=== PATIENT | female | born 1985 | race Caucasian/White ===

== ENCOUNTER 2023-08-20 16:58 | Inpatient (IN) | payer OTHER, SELFPAY ==
--- NOTE | ~2023-08-20 | XR_ITS ---
EXAMINATION: XR CHEST CLINICAL INFORMATION: Chest tightness. COMPARISON: None available. TECHNIQUE: 2 views of the chest were obtained. FINDINGS: Increased lung volumes. No focal consolidation, pleural effusion or pneumothorax. Normal appearance of the cardiomediastinal silhouette. No acute osseous findings. Visualized upper abdomen is within normal limits. XR/XR chest 2V IMPRESSION: Nonspecific increased lung volumes, otherwise normal examination.
--- NOTE | ~2023-08-20 | CT_ITS ---
EXAMINATION: CT ABDOMEN AND PELVIS WITH CONTRAST CLINICAL INFORMATION: Abdominal pain. Rule out pancreatitis. COMPARISON: None available. TECHNIQUE: Multidetector volumetric images were obtained from the superior aspect of the liver through the pubic symphysis following administration 85 mL of Omnipaque 350 intravenous contrast. Sagittal and coronal reformatted images were obtained on the technologist's workstation. Oral contrast: Yes This CT examination was performed using dose optimization techniques as appropriate, variously including the following: *Automated exposure control *Adjustment of mA and/or kV according to patient size (this includes techniques or standardized protocols for targeted exams where dose is matched to indication/reason for exam; i.e. extremities or head) *Use of iterative reconstruction technique DLP: 485 mGy-cm FINDINGS: LUNG BASES: The visualized lung bases are unremarkable. LIVER, GALLBLADDER, AND BILIARY TREE: The liver is enlarged and low in attenuation suggestive of fatty infiltration. No focal liver lesion or evidence of cirrhosis. Normal gallbladder. No intra or extrahepatic biliary duct dilatation. PANCREAS: There is edematous change of the head of the pancreas. There is fat stranding and fluid seen surrounding the pancreatic head, duodenum, right perinephric fat and small bowel mesentery. This probably represents acute interstitial pancreatitis. Differential would include duodenitis. The body and tail of the pancreas are normal. The main pancreatic duct does not appear dilated. SPLEEN: Unremarkable. ADRENAL GLANDS: Unremarkable. KIDNEYS AND URETERS: The kidneys are normal in size, shape, and attenuation. No hydronephrosis, hydroureter, or calculi seen. Right perinephric fat stranding. BLADDER: Unremarkable. GASTROINTESTINAL TRACT: There is mild wall thickening of the proximal duodenum, stranding of the surrounding fat all amount of fluid. This may be reactive secondary to pancreatitis. Again differential would include duodenitis. The small and large bowel are otherwise unremarkable. The appendix is unremarkable. ABDOMINAL WALL: No significant hernia is appreciated. LYMPH NODES: Normal. VASCULAR: Unremarkable. PELVIC VISCERA: Unremarkable. OSSEOUS STRUCTURES: Unremarkable. CT/CT abdomen pelvis w IV con IMPRESSION: Probable interstitial pancreatitis of the pancreatic head, adjacent fat stranding and small amount of fluid. There is a wall thickening of the adjacent proximal duodenum that may be reactive. Differential would include duodenitis. Enlarged fatty liver. Fleischner guidelines were followed.
[2023-08-20 17:37] VITALS: BP 150/102; PULSE 98; RESP 20; TEMP 36.6; O2SAT 96; BMI 23.2
--- NOTE | 2023-08-20 17:43 | ED_ITS ---
HPI - General Adult General Chief complaint: ETOH/Substance Use Stated complaint: Detox Time Seen by Provider: 08/20/23 18:24 History of Present Illness HPI narrative: The patient is a 38-year-old female with a history of alcoholism. She has had episodes of alcoholic pancreatitis in the past and cared for at other hospitals. She says that she did inpatient detox in March of this year and was sober for a few months afterwards but relapsed and has been drinking for awhile. The patient says that over the last couple of days she has felt unwell and has been very anxious about her health. She called [facility] in [place] today to try to go to inpatient detox but no beds were available. She was advised to go to an emergency room. She says that she has been having headaches and chest pain. She has had nausea and some diarrhea. She would 1 episode of vomiting this morning. She does not really feel like she has pancreatitis today. She felt very anxious at home and ultimately came to the emergency room here. She denies fever, sweats, chills. She denies suicidality and homicidality. She says that she normally drinks 10 nips of vodka a day. Today she has had 8 nips. Related Data Allergies Allergy/AdvReac Type Severity Reaction Status Date / Time ibuprofen AdvReac Unknown Verified 08/20/23 17:47 ondansetron [From Zofran] AdvReac Unknown Verified 08/20/23 17:47 Review of Systems 2 Review of Systems: Yes all other systems are reviewed and are negative [facility] Social History Social History Advance Directives: No Advance Directives Information Provided: No Do you have a plan to hurt others: No Plan Physical Exam ED Vital Signs: Vital Signs - 24 hr 08/20/23 17:37 08/20/23 20:00 08/20/23 22:00 Temperature 98 F 97.6 F 98.5 F Pulse Rate 98 85 89 Respiratory Rate 20 12 11 L Blood Pressure 150/102 H 164/89 H 153/103 H Pulse Oximetry 96 99 97 Oxygen Delivery Method Room Air Room Air Room Air BMI result Body Mass Index 23.2 Const Other: The patient is awake, alert, and seems somewhat anxious. HENMT Other: Face is symmetrical, mucous membranes moist. Eyes Other: Pupils are round equal, conjunctivae clear Neck Other: No neck swelling. Moving her neck easily. Resp Effort & Inspection: normal respiratory effort Auscultation: clear to auscultation bilaterally Cardio Rate: regular rate Rhythm: regular rhythm Heart sounds: S1 normal heart sound present and S2 normal heart sound present GI Other: Abdomen is soft and nontender Skin Other: Skin is dry and unremarkable Neuro Other: The patient is awake and alert. She seemed sad but not maudlin. She was oriented and appropriate. She was not slurring her words. Face is symmetrical. Cranial nerves seem intact. She moves her extremities symmetrically. No focal neurological deficit. Extrem Other: No calf swelling or tenderness. Psych Other: The patient seemed mildly tearful during our conversation. She made good eye contact. She seems to have insight into her situation. No suicidality or homicidality. Course Course Course Narrative: This is a Rapid Medical Examination (RME) performed by Nadege Lopez PA-C in triage. Full HPI, ROS, assessment and treatment plan per primary provider in the Main ED. 38 yo female hx of etoh abuse here requesting detox. currently reports chest tightness, SANCHEZ, anxiety, nausea, vomiting, diarrhea. admits to pins and needles sensation in her legs. reports drinking 10 nips of vodka daily. Has consumed 8 nips of vodka today, the last one being 1 hour ago. Admits to being in withdrawal before. Denies withdrawal seizures. denies TH/VH/AH. denies SI/HI. Denies illicit substance use. anxious appearing female. tearful. no asterixis. no tremors. CIWA 10. Plan: labs, UA, u preg, UDS, ethanol, ekg Medications Administered Discontinued Medications Generic Name Dose Route Start Last Admin Trade Name Jessica PRN Reason Stop Dose Admin Diphenhydramine HCl 25 mg 08/20/23 20:57 08/20/23 21:45 Diphenhydramine Hcl 50 Mg/Ml Vial IVPUSH 08/20/23 20:58 25 mg ONCE ONE Administration Sodium Chloride 1,000 mls @ 999 mls/hr 08/20/23 19:45 08/20/23 19:59 Ns IV 08/20/23 20:45 999 mls/hr .Q1H1M VICKY Administration Calcium Gluconate 2 gm in 100 mls @ 400 mls/hr 08/20/23 21:25 08/20/23 21:49 Calcium Gluconate IV 08/20/23 21:39 400 mls/hr ONCE ONE Administration Metoclopramide HCl 10 mg 08/20/23 20:57 08/20/23 21:45 Metoclopramide Hcl 10 Mg/2 Ml Vial IVPUSH 08/20/23 20:58 10 mg ONCE ONE Administration Ondansetron HCl 4 mg 08/20/23 19:45 08/20/23 19:52 Ondansetron Hcl 4 Mg/2 Ml Vial IVPUSH 08/20/23 19:46 4 mg ONCE ONE Administration Phenobarbital Sodium 245 mg 08/20/23 20:00 08/20/23 20:01 Phenobarbital Sodium 130 Mg/Ml Im Once IM 08/20/23 20:01 245 mg ONCE ONE Administration Protocol Medical Decision Making Medical Decision Making MDM Narrative: The patient is a 38-year-old female with a history of significant long-term alcoholism. 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 She presents after trying to get into outpatient detox earlier today. She drank before coming to the hospital but was reporting feeling some sense of withdrawal. She was given 10 milligrams/kilogram of IM phenobarbital. She was also complaining of a headache for which she was given metoclopramide and diphenhydramine. The patient seemed to improve initially and it was my impression that she should be kept in the emergency room to be seen by the recovery team in the morning for assistance with obtaining inpatient detox. While in the emergency room the patient also began to complain of pain somewhat reminiscent of her pancreatitis. Her initial lipase was minimally elevated at 82. We are repeating this. I do not have a high suspicion that the patient has a recurrence of her pancreatitis given the history she describes. I will be signing the patient out change of shift with the plan for the patient to be observed overnight with evaluation by the recovery team in the morning. Lab Data 08/20/23 18:21 08/20/23 18:20 Labs: Lab Results 08/20/23 08/20/23 Range/Units 18:20 18:21 WBC 10.6 (4.8-10.8) X10*3/uL RBC 5.09 (4.20-5.50) X10*6/uL Hgb 15.8 (12.0-16.0) g/dl Hct 43.9 (37.0-47.0) % MCV 86.2 (80.0-98.0) fL MCH 31.0 (27.0-33.0) pg MCHC 36.0 H (31.0-35.0) g/dl RDW 12.7 (11.0-16.0) % Plt Count 161 (160-400) X10*3/uL MPV 8.4 L (9.4-12.3) fL Immature Gran % (Auto) 0.7 H (0.0-0.4) % Neut % (Auto) 58.0 (45-73) % Lymph % (Auto) 31.5 (20-40) % [place] % (Auto) 5.1 (2-11) % Eos % (Auto) 3.9 (0-4) % Baso % (Auto) 0.8 (0-2) % Lymph # (Auto) 3.3 (1.2-4.9) X10*3/uL [place] # (Auto) 0.5 (0.1-1.2) X10*3/uL Eos # (Auto) 0.4 (0.0-0.4) X10*3/uL Baso # (Auto) 0.1 (0.0-0.2) X10*3/uL Abs Immat Gran (auto) 0.07 H (0.00-0.03) X10*3/uL Absolute Neuts (auto) 6.2 (2.0-8.3) x10*3/uL Absolute Nucleated RBC 0.000 (0.0-0.012) X10*3/uL Nucleated RBC % (auto) 0.0 (0.0-0.2) /100WBC PT 12.1 (11.1-13.3) SEC INR 1.0 (0.9-1.1) Sodium 144 (135-145) mmol/L Potassium 3.7 (3.3-5.1) mmol/L Chloride 109 H (96-108) mmol/L Carbon Dioxide 23 (22-29) mmol/L Anion Gap 16 (12-20) BUN 7 L (9-16) mg/dL Creatinine 0.76 (0.5-1.4) mg/dL Estim Creat Clear Calc 96.6 Estimated GFR > 60 Random Glucose 120 H (60-115) mg/dL Calcium 9.4 (8.4-10.2) mg/dL Magnesium 2.1 (1.6-2.6) mg/dL Total Bilirubin 0.4 (0.0-1.0) mg/dL AST 73 H (5-31) U/L ALT 36 H (0-31) U/L Alkaline Phosphatase 71 (39-117) U/L Troponin I High Sens < 2.7 (<3.5-17.0) ng/L Total Protein 7.9 (6.5-8.0) g/dL Albumin 4.7 (3.5-5.0) g/dL Lipase 82 H (8-78) U/L Folate 4.0 (> or = 4.0) ng/mL Urine Color Yellow Urine Appearance Clear Urine pH 6.0 (5.0-9.0) Ur Specific [place] <= 1.005 (1.005-1.025) Urine Protein Negative (Neg-Trace) mg/dL Urine Glucose (UA) Negative (Negative) mg/dL Urine Ketones Negative (Negative) mg/dL Urine Blood Negative (Negative) Urine Nitrite Negative (Negative) Ur Leukocyte Esterase Negative (Negative) Urine Test NEGATIVE (NEGATIVE) Urine Opiates Screen Not Detected (Not Detect) Ur Buprenorphine Scrn Not Detected (Not Detect) ng/mL Ur Oxycodone Screen Not Detected (Not Detect) ng/mL Urine Methadone Screen Not Detected (Not Detect) ng/mL Urine Fentanyl Screen Not Detected (Not Detect) Ur Barbiturates Screen Not Detected (Not Detect) Ur Phencyclidine Scrn Not Detected (Not Detect) Ur Amphetamines Screen Not Detected (Not Detect) U Benzodiazepines Scrn Not Detected (Not Detect) Urine Cocaine Screen Not Detected (Not Detect) U Marijuana (THC) Screen Not Detected (Not Detect) Ethyl Alcohol 336 H* mg/dL Discharge Plan Discharge Clinical Impression: Alcoholic intoxication, Alcoholism Patient Disposition: Still a Patient Print Language: [place]
--- NOTE | 2023-08-20 17:48 | ECG_ITS ---
Test Reason : CHEST TIGHTNESS Blood Pressure : / mmHG Vent. Rate : 088 BPM Atrial Rate : 088 BPM P-R Int : 152 ms QRS Dur : 094 ms QT Int : 414 ms P-R-T Axes : 071 047 062 degrees QTc Int : 500 ms Normal sinus rhythm Prolonged QT Abnormal ECG No previous ECGs available Referred By: Saskia Lopez Electronically Signed By:NISHA IRVIN MD
[2023-08-20 18:24] LABS: MANUAL DIFF FLAG NO
[2023-08-20 18:29] LABS: Basophils Absolute Auto 0.1 X10*3/uL (0.0-0.2); Basophils Percent Auto 0.8 % (0-2); Eosinophils Absolute Auto 0.4 X10*3/uL (0.0-0.4); Eosinophils Percent Auto 3.9 % (0-4); Hematocrit 43.9 % (37.0-47.0); Hemoglobin 15.8 g/dl (12.0-16.0); Imm Gran Abs Auto 0.07 X10*3/uL (0.00-0.03); Imm Gran Pct Auto 0.7 % (0.0-0.4); Lymphocytes Absolute Auto 3.3 X10*3/uL (1.2-4.9); Lymphocytes Percent Auto 31.5 % (20-40); Mean Corpuscular Volume 86.2 fL (80.0-98.0); Mean Platelet Volume 8.4 fL (9.4-12.3); Monocytes Absolute Auto 0.5 X10*3/uL (0.1-1.2); Monocytes Percent Auto 5.1 % (2-11); Neutrophils Absolute Auto 6.2 x10*3/uL (2.0-8.3); Platelet Count 161 X10*3/uL (160-400); Red Blood Count 5.09 X10*6/uL (4.20-5.50); Red Cell Distribution Width 12.7 % (11.0-16.0); White Blood Count 10.6 X10*3/uL (4.8-10.8)
[2023-08-20 18:30] LABS: Appearance Urine Clear; Color Urine Yellow; Glucose Urine UA Negative (Negative); Leukocyte Esterase Urine Negative (Negative); Nitrite Urine Negative (Negative); Specific Gravity - Urine <= 1.005 (1.005-1.025); UPreg QC Valid YES; Urine Blood Negative (Negative); Urine Ketones Negative (Negative); Urine Pregnancy NEGATIVE (NEGATIVE); Urine Protein Negative (Neg-Trace)
[2023-08-20 18:34] LABS: Prothrombin Time 12.1 SEC (11.1-13.3)
[2023-08-20 18:38] LABS: Amphetamine Screen Urine Not Detected (Not Detect); Barbiturates, Urine Not Detected (Not Detect); Benzodiazepines Screen Urine Not Detected (Not Detect); Buprenorphine Scr Not Detected (Not Detect); Cannabinoid Screen Urine Not Detected (Not Detect); Cocaine Screen Urine Not Detected (Not Detect); Fentanyl, urine Not Detected (Not Detect); Methadone Screen, Urine Not Detected (Not Detect); Opiate Screen Urine Not Detected (Not Detect); Oxycodone Screen Urine Not Detected (Not Detect); Phencyclidine Screen Urine Not Detected (Not Detect)
[2023-08-20 19:12] LABS: Alanine Aminotransferase 36 U/L (0-31); Albumin Level 4.7 g/dL (3.5-5.0); Alkaline Phosphatase 71 U/L (39-117); Anion Gap 16 (12-20); Aspartate Amino Transferase 73 U/L (5-31); Bilirubin Total 0.4 mg/dL (0.0-1.0); Blood Urea Nitrogen 7 mg/dL (9-16); Calcium 9.4 mg/dL (8.4-10.2); Carbon Dioxide 23 mmol/L (22-29); Chloride 109 mmol/L (96-108); Creatinine Clr Calc Pharmacy 96.6; Estimated Glomerular Filt Rate > 60; Ethanol 336 mg/dL; Glucose Random 120 mg/dL (60-115); Lipase 82 U/L (8-78); Magnesium 2.1 mg/dL (1.6-2.6); Potassium 3.7 mmol/L (3.3-5.1); Sodium 144 mmol/L (135-145); Total Protein 7.9 g/dL (6.5-8.0)
[2023-08-20 19:13] LABS: Troponin-I High Sensitivity < 2.7 ng/L (<3.5-17.0)
[2023-08-20] MEDS: ondansetron HCL 4 MG/2 ML VIAL IVPUSH (19:52)
[2023-08-20] MEDS: 0.9 % Sodium Chloride 1,000 ML 999 ML IV ×2 (19:59→23:16)
[2023-08-20 20:00] VITALS: BP 164/89; PULSE 85; RESP 12; TEMP 36.4; O2SAT 99
[2023-08-20] MEDS: PHENobarbitaL sodium 130 MG/ML IM ONCE 245 MG IM (20:01)
[2023-08-20] MEDS: Metoclopramide HCl 10 MG/2 ML VIAL IVPUSH (21:45)
[2023-08-20] MEDS: diphenhydrAMINE HCL 50 MG/ML VIAL 25 MG IVPUSH (21:45)
[2023-08-20] MEDS: Calcium Gluconate/NaCl,Iso-Osm 2 GM/100 ML PLAST..BAG IV (21:49)
[2023-08-20 22:00] VITALS: BP 153/103; PULSE 89; RESP 11; TEMP 36.9; O2SAT 97
[2023-08-20] MEDS: Morphine Sulfate 4 MG/ML CARTRIDGE IVPUSH (23:15)
[2023-08-20] MEDS: PHENobarbitaL sodium 130 MG/ML VIAL IM Q3Hx2 185 MG IM (23:15)
[2023-08-20] MEDS: Acetaminophen 325 MG TABLET 975 MG PO (23:16)
[2023-08-20 23:48] LABS: Lipase 82 U/L (8-78)
[2023-08-21] VITALS (13 sets, daily range): BP systolic 121–172; BP diastolic 75–105; PULSE 73–88; RESP 8–20; TEMP 36.6–37.1; O2SAT 95–99
--- NOTE | 2023-08-21 00:29 | MHC.EDTECH ---
This tech took over care of patient at 2300,hourly rounds and vitals completed,patient is resting comfortably call [place] toro in reach
[2023-08-21] MEDS: PHENobarbitaL sodium 130 MG/ML VIAL IM Q3Hx2 185 MG IM (02:03)
--- NOTE | 2023-08-21 02:06 | MHC.EDTECH ---
Patient ambulated to the bathroom with a steady gait,hourly rounds and vitals completed
--- NOTE | 2023-08-21 04:04 | MHC.EDTECH ---
Hourly rounds and vitals completed,patient is resting comfortably,call [place] toro in reach
[2023-08-21] MEDS: Magnesium Hydrox/Alum Hydrox 30 ML ORAL.SUSP PO ×2 (06:25→09:56)
[2023-08-21] MEDS: LORazepam 1 MG TABLET PO (06:25)
[2023-08-21] MEDS: PHENobarbitaL 15 MG TABLET 45 MG PO ×2 (09:08→20:33)
[2023-08-21] MEDS: Lidocaine HCl Viscous 2 % 15 ML SOLUTION 10 ML PO (09:55)
[2023-08-21] MEDS: PHENobarb/Hyoscy/Atropine/Scop 10 ML ELIXIR PO (09:56)
--- NOTE | 2023-08-21 10:11 | PC.NURSE ---
Belongings searched by security. Pt changed into safety attire. Denies any SI or HI. Reports pain is 8/10 in epigastric/ LUQ region, medicated per MAR. Alert and oriented, breathing even and unlabored.
--- NOTE | 2023-08-21 10:57 | PC.NURSE ---
Pt found to have home meds in her bag. 3 regular meds and 1 controlled, inventory done by 2 RNs and meds brought to pharmacy by RN
[2023-08-21] MEDS: iohexoL 350 MG/ML 100 ML INFUS..BTL IV (14:57)
[2023-08-21] MEDS: Morphine Sulfate 4 MG/ML CARTRIDGE IVPUSH (15:03)
[2023-08-21] MEDS: diphenhydrAMINE HCL 50 MG/ML VIAL IVPUSH (15:05)
[2023-08-21] MEDS: Metoclopramide HCl 10 MG/2 ML VIAL IVPUSH (15:07)
[2023-08-21] MEDS: 0.9 % Sodium Chloride 1,000 ML 999 ML IV (15:08)
--- NOTE | 2023-08-21 17:23 | P.HPHOSP_ITS ---
History of Present Illness Date of Service: 08/21/23 Attending physician on admission: [facility] Chief Complaint: Abdominal pain, alcohol withdrawal This is a 38 year old female with history of alcohol dependence who presented to the emergency department seeking detox. The initial plan was for her to go to detox facility. During her stay in the emergency department she began experiencing symptoms of withdrawal and she was started on phenobarbital protocol. In addition she began having epigastric abdominal pain consistent with previous episodes of pancreatitis. Her lipase was obtained and was 82, a CT scan of her abdomen showed probable interstitial pancreatitis of the pancreatic head versus duodenitis. Patient has had nausea but no vomiting or diarrhea. She denies any fever, chills. The remainder of her workup was unremarkable. She does report drinking 10 nips daily with her last drink prior to her arrival yesterday evening. She has had previous episodes of alcohol induced pancreatitis and pain is similar to previous. It was described as burning and radiating around her side. She denies any urinary symptoms. She will be admitted for further management of alcohol withdrawal and acute alcoholic pancreatitis Review of Systems 2 Review of Systems: Yes all other systems are reviewed and are negative Constitutional: Constitutional: Denies fever(s) ENT: Denies dizziness Cardiovascular: Cardiovascular: Denies chest pain Gastrointestinal: Gastrointestinal: Reports abdominal pain, Denies diarrhea, Reports nausea and Denies vomiting Neurologic: Denies dizziness [facility] Medical History (Updated 08/21/23 @ 17:31 by ANN Clemente) Alcoholism Anxiety Functional capacity: independent ambulation Pertinent family history: Dad has history of hypertension Social History Alcohol intake: current Alcohol intake frequency: 3 or more drinks per day Smoked in Last 30 Days: Yes Use of substances other than those prescribed or required for medical reasons: Yes Substance Use Type: Marijuana Substance Use Frequency: Occasionally Advance Directives: No Advance Directives Information Provided: No Do you have a plan to hurt others: No Plan Patient : No Meds Allergies Allergy/AdvReac Type Severity Reaction Status Date / Time ibuprofen AdvReac Unknown Verified 08/20/23 17:47 ondansetron [From Zofran] AdvReac Unknown Verified 08/20/23 17:47 Active Medications: Current Medications Pharmacy Consult (Consult Rx Etoh Phenob Im/Po) 1 each MISCELLANE ONCE PRN; Protocol PRN Reason: Consult order Phenobarbital (Phenobarbital 15 Mg Tablet) 45 mg PO BID [facility]; Protocol Stop: 08/22/23 21:01 Last Admin: 08/21/23 09:08 Dose: 45 mg Phenobarbital (Phenobarbital 15 Mg Tablet) 15 mg PO BID [facility]; Protocol Stop: 08/24/23 21:01 Phenobarbital (Phenobarbital 15 Mg Tablet) 15 mg PO DAILY [facility]; Protocol Stop: 08/26/23 09:01 Home Medications ?Medication ?Instructions ?Recorded ?Confirmed ?Last Taken ?Type buspirone 15 mg tablet 15 mg PO BID 08/21/23 08/21/23 08/20/23 06:00 History clonidine HCl 0.1 mg tablet 0.1 mg PO BID 08/21/23 08/21/23 08/20/23 06:00 History cyanocobalamin (vitamin B-12) 1,000 mcg PO DAILY 08/21/23 08/21/23 08/20/23 06:00 History 1,000 mcg tablet hydroxyzine HCl 50 mg tablet 50 mg PO DAILY PRN Anxiety 08/21/23 08/21/23 08/20/23 06:00 History Physical Exam 2 Vital Signs and Narrative: Vital Signs: Last Vital Signs Temp 98.1 F 08/21/23 16:56 Pulse 80 08/21/23 16:56 Resp 13 08/21/23 16:56 BP 143/91 H 08/21/23 16:56 Pulse Ox 95 08/21/23 16:56 O2 Del Method Room Air 08/21/23 16:56 BMI result Body Mass Index 23.2 Const: General: cooperative and alert Nutritional Appearance: thin O rientation/consciousness: patient oriented x3 Resp: Effort & Inspection: normal respiratory effort, able to speak in complete sentences, no respiratory distress and no use of accessory muscles A uscultation: clear to auscultation bilaterally Cardio: Rate: regular rate GI: Other: Tenderness to palpation epigastric/right upper quadrant, nondistended. No guarding, no rebound Palpation (GI): Soft to palpation Neuro: General: patient oriented x3, moves all extremities and CN's II-XI intact bilaterally Extrem: General: Yes no pedal edema Results Labs 08/20/23 18:21 08/20/23 18:20 Labs: Laboratory Results - last 24 hr 08/20/23 08/20/23 08/20/23 18:20 18:21 23:30 MCV 86.2 MCH 31.0 MCHC 36.0 H RDW 12.7 Plt Count 161 MPV 8.4 L Immature Gran % (Auto) 0.7 H Neut % (Auto) 58.0 Lymph % (Auto) 31.5 [place] % (Auto) 5.1 Eos % (Auto) 3.9 Baso % (Auto) 0.8 Lymph # (Auto) 3.3 [place] # (Auto) 0.5 Eos # (Auto) 0.4 Baso # (Auto) 0.1 Abs Immat Gran (auto) 0.07 H Absolute Neuts (auto) 6.2 Absolute Nucleated RBC 0.000 Nucleated RBC % (auto) 0.0 PT 12.1 INR 1.0 Anion Gap 16 Estim Creat Clear Calc 96.6 Estimated GFR > 60 Random Glucose 120 H Calcium 9.4 Magnesium 2.1 Total Bilirubin 0.4 AST 73 H ALT 36 H Alkaline Phosphatase 71 Troponin I High Sens < 2.7 Total Protein 7.9 Albumin 4.7 Lipase 82 H 82 H Folate 4.0 Urine Color Yellow Urine Appearance Clear Urine pH 6.0 Ur Specific [place] <= 1.005 Urine Protein Negative Urine Glucose (UA) Negative Urine Ketones Negative Urine Blood Negative Urine Nitrite Negative Ur Leukocyte Esterase Negative Urine Test NEGATIVE Urine Opiates Screen Not Detected Ur Buprenorphine Scrn Not Detected Ur Oxycodone Screen Not Detected Urine Methadone Screen Not Detected Urine Fentanyl Screen Not Detected Ur Barbiturates Screen Not Detected Ur Phencyclidine Scrn Not Detected Ur Amphetamines Screen Not Detected U Benzodiazepines Scrn Not Detected Urine Cocaine Screen Not Detected U Marijuana (THC) Screen Not Detected Ethyl Alcohol 336 H* Imaging Radiologist's Impressions: Impressions Chest X-Ray 08/20/23 19:12 IMPRESSION: Nonspecific increased lung volumes, otherwise normal examination. Abdomen/Pelvis CT 08/21/23 15:13 IMPRESSION: Probable interstitial pancreatitis of the pancreatic head, adjacent fat stranding and small amount of fluid. There is a wall thickening of the adjacent proximal duodenum that may be reactive. Differential would include duodenitis. Enlarged fatty liver. Fleischner guidelines were followed. Assessment and Plan (1) Acute pancreatitis: Status: Acute Plan This is a 38-year-old female with history of anxiety and alcohol dependence with history of alcohol withdrawal and alcohol induced pancreatitis in the past who presented to the emergency department seeking detox and then began experiencing symptoms of alcohol withdrawal and pancreatitis Alcohol dependence with alcohol withdrawal Started on phenobarbital protocol Supplement with thiamine, folic acid Addiction medicine evaluation Will repeat electrolytes including magnesium Acute pancreatitis Due to alcohol use NPO IVF Pain medication, supportive care QTC prolonged at 500, judicious use of antiemetics Transaminitis Likely secondary to alcohol use Trend LFTs Anxiety Continue home medications including clonidine, BuSpar, Atarax DVT prophylaxis-Lovenox Code status-full code Patient will likely require 2 midnight stay in the hospital for management of acute alcohol withdrawal and acute pancreatitis for IV pain control, inability to take p.o. Quality Stroke Does the patient have a stroke diagnosis?: No VTE Prior VTE?: No VTE Risk Level:: Medical - moderate - high VTE Device Contraindication: N/A - Device Ordered VTE Drug Contraindication: Treatment Not Indicated
--- NOTE | 2023-08-21 17:28 | PHA.MEDREC ---
Pharmacy Consult ? Medication Reconciliation Pharmacy has completed the medication reconciliation. Confirmed meds with patient.
[2023-08-21] MEDS: hydrOXYzine HCL 50 MG TABLET PO (17:42)
[2023-08-21] MEDS: Famotidine/PF 20 MG/2 ML VIAL IVPUSH (17:43)
[2023-08-21] MEDS: Enoxaparin Sodium 40 MG/0.4 ML SYRINGE SUBCUT (17:44)
[2023-08-21] MEDS: Lactated Ringers 1,000 ML 150 ML IVCONT (17:48)
[2023-08-21 17:57] LABS: Alanine Aminotransferase 26 U/L (0-31); Albumin Level 3.8 g/dL (3.5-5.0); Alkaline Phosphatase 67 U/L (39-117); Anion Gap 12 (12-20); Aspartate Amino Transferase 59 U/L (5-31); Bilirubin Direct 0.6 mg/dL (0.0-0.5); Bilirubin Total 1.3 mg/dL (0.0-1.0); Blood Urea Nitrogen 6 mg/dL (9-16); Calcium 8.1 mg/dL (8.4-10.2); Carbon Dioxide 25 mmol/L (22-29); Chloride 105 mmol/L (96-108); Creatinine Clr Calc Pharmacy 118.4; Estimated Glomerular Filt Rate > 60; Glucose Random 92 mg/dL (60-115); Magnesium 1.7 mg/dL (1.6-2.6); Sodium 138 mmol/L (135-145); Total Protein 6.2 g/dL (6.5-8.0)
[2023-08-21] MEDS: Nicotine 14 MG PATCH.TD24 TRANSDERMA (18:04)
[2023-08-21] MEDS: Morphine Sulfate 4 MG/ML CARTRIDGE 2 MG IVPUSH (19:36)
[2023-08-21] MEDS: ondansetron HCL 4 MG/2 ML VIAL IVPUSH (19:36)
--- NOTE | 2023-08-21 19:39 | PC.NURSE ---
this rn assumed care of pt, pt resting in stretcher, no acute distress noted. pt reporting 7/10 upper abdominal pain at this time with intermittent nausea. pt medicated per may, aware of pt nausea and blood pressure, new order for zofran placed at this time.
[2023-08-21] MEDS: busPIRone HCl 5 MG TABLET 15 MG PO (20:32)
[2023-08-21] MEDS: cloNIDine HCL 0.1 MG TABLET PO (20:33)
--- NOTE | 2023-08-21 20:35 | PC.NURSE ---
pt medicated per mar, pt tolerated well with water.
--- NOTE | 2023-08-22 | ECG_ITS ---
Test Reason : qtc check Blood Pressure : / mmHG Vent. Rate : 078 BPM Atrial Rate : 078 BPM P-R Int : 170 ms QRS Dur : 090 ms QT Int : 422 ms P-R-T Axes : 061 045 068 degrees QTc Int : 481 ms Normal sinus rhythm Prolonged QT Abnormal ECG When compared with ECG of 20-AUG-2023 18:26, No significant change was found Referred By: Koko Barros Electronically Signed By:NISHA IRVIN MD
[2023-08-22] MEDS: Lactated Ringers 1,000 ML 150 ML IVCONT ×4 (00:47→21:38)
[2023-08-22] MEDS: Morphine Sulfate 4 MG/ML CARTRIDGE 2 MG IVPUSH ×6 (00:48→23:00)
--- NOTE | 2023-08-22 00:50 | PC.NURSE ---
pt reporting 8/10 abdominal pain at this time, pt medicated per may.
--- NOTE | 2023-08-22 03:51 | PC.NURSE ---
pt reporting anxiety at this time, aware.
[2023-08-22] MEDS: hydrOXYzine HCL 50 MG TABLET PO ×2 (04:09→22:59)
[2023-08-22 05:59] VITALS: BP 143/98; PULSE 97; RESP 20; TEMP 36.6; O2SAT 96
--- NOTE | 2023-08-22 06:06 | PC.NURSE ---
pt medicated per mar for 710 abdominal pain.
[2023-08-22 06:41] LABS: Hematocrit 35.7 % (37.0-47.0); Mean Corpuscular HGB Conc 36.4 g/dl (31.0-35.0); Mean Corpuscular Hemoglobin 31.9 pg (27.0-33.0); Mean Corpuscular Volume 87.7 fL (80.0-98.0); Red Blood Count 4.07 X10*6/uL (4.20-5.50); Red Cell Distribution Width 12.1 % (11.0-16.0); White Blood Count 7.8 X10*3/uL (4.8-10.8)
[2023-08-22 06:43] LABS: Anion Gap 12 (12-20); Blood Urea Nitrogen 4 mg/dL (9-16); Calcium 8.1 mg/dL (8.4-10.2); Carbon Dioxide 23 mmol/L (22-29); Chloride 102 mmol/L (96-108); Creatinine Clr Calc Pharmacy 111.3; Estimated Glomerular Filt Rate > 60; Glucose Random 99 mg/dL (60-115); Potassium 3.4 mmol/L (3.3-5.1); Sodium 134 mmol/L (135-145)
[2023-08-22 07:15] LABS: Platelet Count 105 X10*3/uL (160-400)
[2023-08-22 07:27] VITALS: BP 147/98; PULSE 88; RESP 13; O2SAT 97
[2023-08-22 09:16] VITALS: BP 142/94; PULSE 86; RESP 16; TEMP 36.5; O2SAT 97
[2023-08-22] MEDS: cloNIDine HCL 0.1 MG TABLET PO ×2 (09:45→20:15)
[2023-08-22] MEDS: Famotidine/PF 20 MG/2 ML VIAL IVPUSH (09:45)
[2023-08-22] MEDS: Nicotine 14 MG PATCH.TD24 TRANSDERMA (09:45)
[2023-08-22] MEDS: PHENobarbitaL 15 MG TABLET 45 MG PO ×2 (09:45→20:14)
[2023-08-22] MEDS: Folic Acid 1 MG TABLET PO (09:46)
[2023-08-22] MEDS: busPIRone HCl 5 MG TABLET 15 MG PO ×2 (09:46→20:14)
[2023-08-22] MEDS: ondansetron HCL 4 MG/2 ML VIAL IVPUSH ×2 (09:46→20:13)
[2023-08-22] MEDS: Thiamine HCL 100 MG TABLET PO (09:46)
[2023-08-22] MEDS: Cyanocobalamin (Vitamin B-12) 1,000 MCG TABLET 1000 MCG PO (09:46)
[2023-08-22 11:38] LABS: Alanine Aminotransferase 21 U/L (0-31); Albumin Level 3.3 g/dL (3.5-5.0); Alkaline Phosphatase 56 U/L (39-117); Aspartate Amino Transferase 42 U/L (5-31); Bilirubin Direct 0.3 mg/dL (0.0-0.5); Bilirubin Total 0.9 mg/dL (0.0-1.0); Magnesium 1.6 mg/dL (1.6-2.6); Total Protein 5.6 g/dL (6.5-8.0)
--- NOTE | 2023-08-22 13:58 | MHC.CM.PN ---
PATIENT LIVES IN AN APARTMENT ALONE. FUNCTIONALLY INDEPENDENT. DENIES US OF DME OR SERVICES. PCP RAMESH AGUSTIN NO HCP. CM PROVIDED EDUCATION AND OFFERED ASSISTANCE. PATIENT DECLINED. DP: HOME SELF CARE VS RECOVERY TEAM INTERVENTION FOR ETOH W/D. MOM CAN TRANSPORT IF DC HOME. CM WILL CONTINUE TO FOLLOW.
--- NOTE | 2023-08-22 15:00 | HO.PM.IMPN ---
Subjective Subjective Date of Service: 08/22/23 Interval History: seen and examined pain improved, would like a trial of diet reports constipation Review of Systems Negative except HPI/interval history. Physical Exam Vital Signs: Vital Signs: Last Vital Signs Temp 97.7 F 08/22/23 09:16 Pulse 86 08/22/23 09:16 Resp 16 08/22/23 09:16 BP 142/94 H 08/22/23 09:16 Pulse Ox 97 08/22/23 09:16 O2 Del Method Room Air 08/22/23 09:16 BMI result Body Mass Index 23.2 Const: Other: General - no acute distress, appears comfortable Cardiovascular - regular rate and rhythm, S1-S2 Lungs - normal respiratory effort, clear to auscultation bilaterally, no wheezing Abdomen - soft, nontender, no rebound or guarding Extremities - no edema bilaterally Neuro - awake and alert, no focal deficits Objective Data Active Medications Acetaminophen (Acetaminophen 325 Mg Tablet) 650 mg PO Q6H PRN PRN Reason: Pain, Mild (Pain Scale 1-3) Buspirone HCl (Buspirone Hcl 5 Mg Tablet) 15 mg PO BID [facility] Last Admin: 08/22/23 09:46 Dose: 15 mg Documented By: LEONIDES Clonidine HCl (Clonidine Hcl 0.1 Mg Tablet) 0.1 mg PO BID [facility]; Protocol Last Admin: 08/22/23 09:45 Dose: 0.1 mg Documented By: LEONIDES Cyanocobalamin (Cyanocobalamin (Vitamin B-12) 1,000 Mcg Tablet) 1,000 mcg PO DAILY [facility] Last Admin: 08/22/23 09:46 Dose: 1,000 mcg Documented By: LEONIDES Enoxaparin Sodium (Enoxaparin Sodium 40 Mg/0.4 Ml Syringe) 40 mg SUBCUT Q24H [facility] Last Admin: 08/21/23 17:44 Dose: 40 mg Documented By: KASH Famotidine (Famotidine/Pf 20 Mg/2 Ml Vial) 20 mg IVPUSH DAILY [facility] Last Admin: 08/22/23 09:45 Dose: 20 mg Documented By: LEONIDES Folic Acid (Folic Acid 1 Mg Tablet) 1 mg PO DAILY [facility] Last Admin: 08/22/23 09:46 Dose: 1 mg Documented By: LEONIDES Hydroxyzine HCl (Hydroxyzine Hcl 50 Mg Tablet) 50 mg PO DAILY PRN PRN Reason: Anxiety Last Admin: 08/21/23 17:42 Dose: 50 mg Documented By: KASH Lactated Ringer's (Lr) 1,000 mls @ 150 mls/hr IVCONT .Q6H40M [facility] Last Admin: 08/22/23 14:47 Dose: 150 mls/hr Documented By: LEONIDES Morphine Sulfate (Morphine Sulfate 4 Mg/Ml Cartridge) 2 mg IVPUSH Q4H PRN; Protocol PRN Reason: Pain, Severe (Pain Scale 7-10) Last Admin: 08/22/23 14:44 Dose: 2 mg Documented By: LEONIDES Nicotine (Nicotine 14 Mg Patch.Td24) 14 mg TRANSDERMA DAILY [facility] Last Admin: 08/22/23 09:45 Dose: 14 mg Documented By: LEONIDES Ondansetron HCl (Ondansetron Hcl 4 Mg/2 Ml Vial) 4 mg IVPUSH Q6H PRN PRN Reason: Nausea and Vomiting Last Admin: 08/22/23 09:46 Dose: 4 mg Documented By: LEONIDES Pharmacy Consult (Consult Rx Etoh Phenob Im/Po) 1 each MISCELLANE ONCE PRN; Protocol PRN Reason: Consult order Phenobarbital (Phenobarbital 15 Mg Tablet) 45 mg PO BID [facility]; Protocol Stop: 08/22/23 21:01 Last Admin: 08/22/23 09:45 Dose: 45 mg Documented By: LEONIDES Phenobarbital (Phenobarbital 15 Mg Tablet) 15 mg PO BID [facility]; Protocol Stop: 08/24/23 21:01 Phenobarbital (Phenobarbital 15 Mg Tablet) 15 mg PO DAILY [facility]; Protocol Stop: 08/26/23 09:01 Polyethylene Glycol (Polyethylene Glycol 3350 17 Gm Powd.Pack) 17 gm PO DAILY PRN PRN Reason: Constipation Sodium Chloride (0.9 % Sodium Chloride Flush 3 Ml Syringe) 3 ml IVFLUSH QSHIFT [facility] Last Admin: 08/22/23 08:09 Dose: Not Given Documented By: EMILY Non-Admin Reason: See Note Thiamine HCl (Thiamine Hcl 100 Mg Tablet) 100 mg PO DAILY [facility] Last Admin: 08/22/23 09:46 Dose: 100 mg Documented By: LEONIDES Labs 08/22/23 06:04 08/22/23 06:04 Labs: Laboratory Results - last 24 hr 08/21/23 08/22/23 17:31 06:04 MCV 87.7 MCH 31.9 MCHC 36.4 H RDW 12.1 Plt Count 105 L D MPV 9.0 L Absolute Nucleated RBC 0.000 Nucleated RBC % (auto) 0.0 Anion Gap 12 12 Estim Creat Clear Calc 118.4 111.3 Estimated GFR > 60 > 60 Random Glucose 92 99 Calcium 8.1 L D 8.1 L Magnesium 1.7 1.6 Total Bilirubin 1.3 H 0.9 Direct Bilirubin 0.6 H 0.3 AST 59 H 42 H ALT 26 21 Alkaline Phosphatase 67 56 Total Protein 6.2 L 5.6 L Albumin 3.8 3.3 L Assessment and Plan (1) Acute pancreatitis: Status: Acute Plan This is a 38-year-old female with history of anxiety and alcohol dependence with history of alcohol withdrawal and alcohol induced pancreatitis in the past who presented to the emergency department seeking detox and then began experiencing symptoms of alcohol withdrawal and pancreatitis Alcohol dependence with alcohol withdrawal continue pheno monitor lytes Acute pancreatitis Due to alcohol use advance diet IV and IV analgesics Transaminitis improved Anxiety Continue home medications including clonidine, BuSpar, Atarax constipation miralax DVT prophylaxis-Lovenox Code status-full code Still requiring IVF and pain analgesics, not tolerating diet as of yet, therefore, will required continued hospitalization Quality Stroke Does the patient have a stroke diagnosis?: No VTE Prior VTE?: No VTE Risk Level:: Medical - moderate - high VTE Device Contraindication: N/A - Device Ordered VTE Drug Contraindication: Treatment Not Indicated
[2023-08-22 15:07] VITALS: BP 135/85; PULSE 77; RESP 14; TEMP 36.6; O2SAT 97
[2023-08-22] MEDS: polyethylene glycoL 3350 17 GM POWD.PACK PO (15:46)
[2023-08-22] MEDS: Acetaminophen 325 MG TABLET 650 MG PO (15:52)
[2023-08-22] MEDS: Enoxaparin Sodium 40 MG/0.4 ML SYRINGE SUBCUT (18:07)
[2023-08-22 20:00] VITALS: BP 147/98; PULSE 78; RESP 20; TEMP 36.6; O2SAT 97
[2023-08-23] MEDS: Acetaminophen 325 MG TABLET 650 MG PO ×3 (02:13→17:28)
[2023-08-23 02:59] VITALS: BP 131/86; PULSE 73; RESP 16; TEMP 36.2; O2SAT 96
[2023-08-23] MEDS: Lactated Ringers 1,000 ML 150 ML IVCONT ×3 (04:17→17:29)
[2023-08-23] MEDS: polyethylene glycoL 3350 17 GM POWD.PACK PO (05:11)
[2023-08-23] MEDS: Morphine Sulfate 4 MG/ML CARTRIDGE 2 MG IVPUSH ×4 (05:12→19:24)
[2023-08-23 07:54] VITALS: BP 140/85; PULSE 74; RESP 16; TEMP 36.1; O2SAT 97
[2023-08-23] MEDS: Famotidine/PF 20 MG/2 ML VIAL IVPUSH (08:37)
[2023-08-23 08:39] VITALS: BP 140/85
[2023-08-23] MEDS: Folic Acid 1 MG TABLET PO (08:39)
[2023-08-23] MEDS: busPIRone HCl 5 MG TABLET 15 MG PO ×2 (08:39→20:43)
[2023-08-23] MEDS: Cyanocobalamin (Vitamin B-12) 1,000 MCG TABLET 1000 MCG PO (08:39)
[2023-08-23] MEDS: PHENobarbitaL 15 MG TABLET PO ×2 (08:39→20:43)
[2023-08-23] MEDS: Thiamine HCL 100 MG TABLET PO (08:39)
[2023-08-23] MEDS: cloNIDine HCL 0.1 MG TABLET PO ×2 (08:39→20:43)
[2023-08-23] MEDS: Nicotine 14 MG PATCH.TD24 TRANSDERMA (08:39)
--- NOTE | 2023-08-23 11:31 | P.PNIM_ITS ---
Subjective Subjective Date of Service: 08/23/23 Interval History: seen and examined reports conspitation which may be making her pain worse tolerated broth last night, but had increased pain afterwards reports worse pain this AM Review of Systems Negative except HPI/interval history. Physical Exam 2 Vital Signs: Vital Signs: Last Vital Signs Temp 96.9 F 08/23/23 07:54 Pulse 74 08/23/23 07:54 Resp 16 08/23/23 07:54 BP 140/85 H 08/23/23 08:39 Pulse Ox 97 08/23/23 07:54 O2 Del Method Room Air 08/23/23 07:54 BMI result Body Mass Index 23.2 Const: Other: General - no acute distress, appears comfortable Cardiovascular - regular rate and rhythm, S1-S2 Lungs - normal respiratory effort, clear to auscultation bilaterally, no wheezing Abdomen - diffuse tenderness without guarding, mildly distended Extremities - no edema bilaterally Neuro - awake and alert, no focal deficits Objective Data Active Medications Acetaminophen (Acetaminophen 325 Mg Tablet) 650 mg PO Q6H PRN PRN Reason: Pain, Mild (Pain Scale 1-3) Last Admin: 08/23/23 08:38 Dose: 650 mg Documented By: KATHERIN Buspirone HCl (Buspirone Hcl 5 Mg Tablet) 15 mg PO BID [facility] Last Admin: 08/23/23 08:39 Dose: 15 mg Documented By: KATHERIN Clonidine HCl (Clonidine Hcl 0.1 Mg Tablet) 0.1 mg PO BID [facility]; Protocol Last Admin: 08/23/23 08:39 Dose: 0.1 mg Documented By: KATHERIN Cyanocobalamin (Cyanocobalamin (Vitamin B-12) 1,000 Mcg Tablet) 1,000 mcg PO DAILY [facility] Last Admin: 08/23/23 08:39 Dose: 1,000 mcg Documented By: KATHERIN Enoxaparin Sodium (Enoxaparin Sodium 40 Mg/0.4 Ml Syringe) 40 mg SUBCUT Q24H [facility] Last Admin: 08/22/23 18:07 Dose: 40 mg Documented By: LEONIDES Famotidine (Famotidine/Pf 20 Mg/2 Ml Vial) 20 mg IVPUSH DAILY [facility] Last Admin: 08/23/23 08:37 Dose: 20 mg Documented By: KATHERIN Folic Acid (Folic Acid 1 Mg Tablet) 1 mg PO DAILY [facility] Last Admin: 08/23/23 08:39 Dose: 1 mg Documented By: KATHERIN Hydroxyzine HCl (Hydroxyzine Hcl 50 Mg Tablet) 50 mg PO DAILY PRN PRN Reason: Anxiety Last Admin: 08/22/23 22:59 Dose: 50 mg Documented By: JESSICA Lactated Ringer's (Lr) 1,000 mls @ 150 mls/hr IVCONT .Q6H40M [facility] Last Admin: 08/23/23 11:28 Dose: 150 mls/hr Documented By: KATHERIN Morphine Sulfate (Morphine Sulfate 4 Mg/Ml Cartridge) 2 mg IVPUSH Q3H PRN; Protocol PRN Reason: Pain, Severe (Pain Scale 7-10) Nicotine (Nicotine 14 Mg Patch.Td24) 14 mg TRANSDERMA DAILY [facility] Last Admin: 08/23/23 08:39 Dose: 14 mg Documented By: KATHERIN Ondansetron HCl (Ondansetron Hcl 4 Mg/2 Ml Vial) 4 mg IVPUSH Q6H PRN PRN Reason: Nausea and Vomiting Last Admin: 08/22/23 20:13 Dose: 4 mg Documented By: JESSICA Oxycodone HCl (Oxycodone Hcl Immed Release 5 Mg Tablet) 5 mg PO Q6H PRN PRN Reason: Pain, Moderate(Pain Scale 4-6) Pharmacy Consult (Consult Rx Etoh Phenob Im/Po) 1 each MISCELLANE ONCE PRN; Protocol PRN Reason: Consult order Phenobarbital (Phenobarbital 15 Mg Tablet) 15 mg PO BID [facility]; Protocol Stop: 08/24/23 21:01 Last Admin: 08/23/23 08:39 Dose: 15 mg Documented By: KATHERIN Phenobarbital (Phenobarbital 15 Mg Tablet) 15 mg PO DAILY [facility]; Protocol Stop: 08/26/23 09:01 Polyethylene Glycol (Polyethylene Glycol 3350 17 Gm Powd.Pack) 17 gm PO DAILY PRN PRN Reason: Constipation Last Admin: 08/23/23 05:11 Dose: 17 gm Documented By: JESSICA Comments: ok to give early per Dr Olivares Sodium Chloride (0.9 % Sodium Chloride Flush 3 Ml Syringe) 3 ml IVFLUSH QSHIFT [facility] Last Admin: 08/23/23 07:19 Dose: Not Given Documented By: KATHERNI Non-Admin Reason: IV Running Thiamine HCl (Thiamine Hcl 100 Mg Tablet) 100 mg PO DAILY [facility] Last Admin: 08/23/23 08:39 Dose: 100 mg Documented By: KATHERIN Labs 08/22/23 06:04 08/22/23 06:04 Labs: Laboratory Results - last 24 hr 08/22/23 06:04 Magnesium 1.6 Total Bilirubin 0.9 Direct Bilirubin 0.3 AST 42 H ALT 21 Alkaline Phosphatase 56 Total Protein 5.6 L Albumin 3.3 L Assessment and Plan (1) Acute pancreatitis: Status: Acute Plan This is a 38-year-old female with history of anxiety and alcohol dependence with history of alcohol withdrawal and alcohol induced pancreatitis in the past who presented to the emergency department seeking detox and then began experiencing symptoms of alcohol withdrawal and pancreatitis Acute pancreatitis Due to alcohol use did not tolerate full liquids with increasing pain will hold off on advancing to solids continue with IVF and IV analgesics repeat labs tomorrow AM Alcohol dependence with alcohol withdrawal improving, continue phenobarb Transaminitis improved Anxiety Continue home medications including clonidine, BuSpar, Atarax constipation miralax add lactulose DVT prophylaxis-Lovenox Code status-full code Continues to have suboptimal pain control with IV and intolerant of adequate PO intake, therefore requires continued hospitalization for treatment. Quality Stroke Does the patient have a stroke diagnosis?: No VTE Prior VTE?: No VTE Risk Level:: Medical - moderate - high VTE Device Contraindication: N/A - Device Ordered VTE Drug Contraindication: Treatment Not Indicated
[2023-08-23] MEDS: Lactulose 20 GM/30 ML SOLUTION PO (11:49)
[2023-08-23 15:30] VITALS: BP 152/69; PULSE 67; RESP 13; TEMP 36.2; O2SAT 99
[2023-08-23] MEDS: Enoxaparin Sodium 40 MG/0.4 ML SYRINGE SUBCUT (17:25)
[2023-08-23] MEDS: ondansetron HCL 4 MG/2 ML VIAL IVPUSH (17:26)
[2023-08-23] MEDS: hydrOXYzine HCL 50 MG TABLET PO (17:30)
[2023-08-23 19:29] VITALS: BP 152/93; PULSE 68; RESP 16; TEMP 36.2; O2SAT 98
[2023-08-23] MEDS: oxyCODONE HCl Immed Release 5 MG TABLET PO (22:57)
[2023-08-24] VITALS (7 sets, daily range): BP systolic 144–171; BP diastolic 94–99; PULSE 66–71; RESP 16–18; TEMP 36.2–36.6; O2SAT 97–98
[2023-08-24] MEDS: Morphine Sulfate 4 MG/ML CARTRIDGE 2 MG IVPUSH ×5 (01:44→21:36)
[2023-08-24] MEDS: ondansetron HCL 4 MG/2 ML VIAL IVPUSH (01:45)
[2023-08-24] MEDS: Acetaminophen 325 MG TABLET 650 MG PO (01:47)
[2023-08-24 06:15] LABS: PLT CLUMP 1; Red Cell Distribution Width 12.2 % (11.0-16.0)
[2023-08-24 06:17] LABS: Hematocrit 33.6 % (37.0-47.0); Hemoglobin 12.3 g/dl (12.0-16.0); Mean Corpuscular HGB Conc 36.6 g/dl (31.0-35.0); Mean Corpuscular Hemoglobin 31.9 pg (27.0-33.0); Mean Corpuscular Volume 87.3 fL (80.0-98.0); Mean Platelet Volume 9.5 fL (9.4-12.3); Red Blood Count 3.85 X10*6/uL (4.20-5.50)
[2023-08-24 06:20] LABS: Platelet Count 109 X10*3/uL (160-400); White Blood Count 4.6 X10*3/uL (4.8-10.8)
[2023-08-24 06:28] LABS: Alanine Aminotransferase 15 U/L (0-31); Albumin Level 3.3 g/dL (3.5-5.0); Alkaline Phosphatase 52 U/L (39-117); Anion Gap 10 (12-20); Aspartate Amino Transferase 22 U/L (5-31); Bilirubin Total 0.3 mg/dL (0.0-1.0); Blood Urea Nitrogen < 3 mg/dL (9-16); Calcium 8.8 mg/dL (8.4-10.2); Carbon Dioxide 30 mmol/L (22-29); Chloride 102 mmol/L (96-108); Creatinine Clr Calc Pharmacy 126.6; Estimated Glomerular Filt Rate > 60; Glucose Random 117 mg/dL (60-115); Potassium 3.5 mmol/L (3.3-5.1); Sodium 138 mmol/L (135-145); Total Protein 5.9 g/dL (6.5-8.0)
[2023-08-24] MEDS: 0.9 % Sodium Chloride Flush 3 ML SYRINGE IVFLUSH ×3 (07:47→20:13)
[2023-08-24] MEDS: Cyanocobalamin (Vitamin B-12) 1,000 MCG TABLET 1000 MCG PO (07:48)
[2023-08-24] MEDS: busPIRone HCl 5 MG TABLET 15 MG PO ×2 (07:48→20:11)
[2023-08-24] MEDS: cloNIDine HCL 0.1 MG TABLET PO ×2 (07:48→20:11)
[2023-08-24] MEDS: Thiamine HCL 100 MG TABLET PO (07:49)
[2023-08-24] MEDS: Famotidine/PF 20 MG/2 ML VIAL IVPUSH (07:50)
[2023-08-24] MEDS: Nicotine 14 MG PATCH.TD24 TRANSDERMA (07:54)
[2023-08-24] MEDS: Folic Acid 1 MG TABLET PO (07:54)
[2023-08-24] MEDS: polyethylene glycoL 3350 17 GM POWD.PACK PO (07:55)
[2023-08-24] MEDS: PHENobarbitaL 15 MG TABLET PO ×2 (07:55→20:12)
--- NOTE | 2023-08-24 09:41 | HO.PM.IMPN ---
Subjective Subjective Date of Service: 08/24/23 Interval History: Follow up pancreatitis feeling better, no nausea or vomiting this morning wants to try solid food Review of Systems Negative except HPI/interval history. Physical Exam Vital Signs: Vital Signs: Last Vital Signs Temp 97.9 F 08/24/23 07:21 Pulse 71 08/24/23 07:21 Resp 18 08/24/23 07:21 BP 159/99 H 08/24/23 07:48 Pulse Ox 97 08/24/23 07:21 O2 Del Method Room Air 08/24/23 07:21 BMI result Body Mass Index 23.2 Appearing in no acute distress lung sounds are clear to auscultation heart regular rate rhythm, clear S1, S2 positive bowel sounds, abdomen is soft, nontender neuro patient is alert x3, no focal deficits Objective Data Active Medications Acetaminophen (Acetaminophen 325 Mg Tablet) 650 mg PO Q6H PRN PRN Reason: Pain, Mild (Pain Scale 1-3) Last Admin: 08/24/23 01:47 Dose: 650 mg Documented By: JESSICA Buspirone HCl (Buspirone Hcl 5 Mg Tablet) 15 mg PO BID [facility] Last Admin: 08/24/23 07:48 Dose: 15 mg Documented By: KENNETH Clonidine HCl (Clonidine Hcl 0.1 Mg Tablet) 0.1 mg PO BID [facility]; Protocol Last Admin: 08/24/23 07:48 Dose: 0.1 mg Documented By: KENNETH Cyanocobalamin (Cyanocobalamin (Vitamin B-12) 1,000 Mcg Tablet) 1,000 mcg PO DAILY [facility] Last Admin: 08/24/23 07:48 Dose: 1,000 mcg Documented By: KENNETH Enoxaparin Sodium (Enoxaparin Sodium 40 Mg/0.4 Ml Syringe) 40 mg SUBCUT Q24H [facility] Last Admin: 08/23/23 17:25 Dose: 40 mg Documented By: KATHERIN Famotidine (Famotidine/Pf 20 Mg/2 Ml Vial) 20 mg IVPUSH DAILY [facility] Last Admin: 08/24/23 07:50 Dose: 20 mg Documented By: KENNETH Folic Acid (Folic Acid 1 Mg Tablet) 1 mg PO DAILY [facility] Last Admin: 08/24/23 07:54 Dose: 1 mg Documented By: KENNETH Hydroxyzine HCl (Hydroxyzine Hcl 50 Mg Tablet) 50 mg PO DAILY PRN PRN Reason: Anxiety Last Admin: 08/23/23 17:30 Dose: 50 mg Documented By: KATHERIN Comments: MD espino to give med early Morphine Sulfate (Morphine Sulfate 4 Mg/Ml Cartridge) 2 mg IVPUSH Q3H PRN; Protocol PRN Reason: Pain, Severe (Pain Scale 7-10) Last Admin: 08/24/23 07:51 Dose: 2 mg Documented By: KENNETH Nicotine (Nicotine 14 Mg Patch.Td24) 14 mg TRANSDERMA DAILY [facility] Last Admin: 08/24/23 07:54 Dose: 14 mg Documented By: KENNETH Ondansetron HCl (Ondansetron Hcl 4 Mg/2 Ml Vial) 4 mg IVPUSH Q6H PRN PRN Reason: Nausea and Vomiting Last Admin: 08/24/23 01:45 Dose: 4 mg Documented By: JESSICA Oxycodone HCl (Oxycodone Hcl Immed Release 5 Mg Tablet) 5 mg PO Q6H PRN PRN Reason: Pain, Moderate(Pain Scale 4-6) Last Admin: 08/23/23 22:57 Dose: 5 mg Documented By: JESSICA Pharmacy Consult (Consult Rx Etoh Phenob Im/Po) 1 each MISCELLANE ONCE PRN; Protocol PRN Reason: Consult order Phenobarbital (Phenobarbital 15 Mg Tablet) 15 mg PO BID [facility]; Protocol Stop: 08/24/23 21:01 Last Admin: 08/24/23 07:55 Dose: 15 mg Documented By: KENNETH Phenobarbital (Phenobarbital 15 Mg Tablet) 15 mg PO DAILY [facility]; Protocol Stop: 08/26/23 09:01 Polyethylene Glycol (Polyethylene Glycol 3350 17 Gm Powd.Pack) 17 gm PO DAILY PRN PRN Reason: Constipation Last Admin: 08/24/23 07:55 Dose: 17 gm Documented By: KENNETH Sodium Chloride (0.9 % Sodium Chloride Flush 3 Ml Syringe) 3 ml IVFLUSH QSHIFT [facility] Last Admin: 08/24/23 07:47 Dose: 3 ml Documented By: KENNETH Thiamine HCl (Thiamine Hcl 100 Mg Tablet) 100 mg PO DAILY [facility] Last Admin: 08/24/23 07:49 Dose: 100 mg Documented By: KENNETH Labs 08/24/23 05:43 08/24/23 05:43 Labs: Laboratory Results - last 24 hr 08/24/23 05:43 MCV 87.3 MCH 31.9 MCHC 36.6 H RDW 12.2 Plt Count 109 L MPV 9.5 Absolute Nucleated RBC 0.000 Nucleated RBC % (auto) 0.0 Anion Gap 10 L Estim Creat Clear Calc 126.6 Estimated GFR > 60 Random Glucose 117 H Calcium 8.8 D Total Bilirubin 0.3 AST 22 ALT 15 Alkaline Phosphatase 52 Total Protein 5.9 L Albumin 3.3 L Assessment and Plan (1) Acute pancreatitis: Status: Acute Plan This is a 38-year-old female with history of anxiety and alcohol dependence with history of alcohol withdrawal and alcohol induced pancreatitis in the past who presented to the emergency department seeking detox and then began experiencing symptoms of alcohol withdrawal and pancreatitis Acute pancreatitis Due to alcohol use continue with IVF and IV analgesics advanced to reg diet Alcohol dependence with alcohol withdrawal improving, continue phenobarb Transaminitis improved Anxiety Continue home medications including clonidine, BuSpar, Atarax constipation miralax add lactulose DVT prophylaxis-Lovenox attending Dr. Barros Code status-full code Continues to have suboptimal pain control with IV and intolerant of adequate PO intake, therefore requires continued hospitalization for treatment. Quality Stroke Does the patient have a stroke diagnosis?: No VTE Prior VTE?: No VTE Risk Level:: Medical - moderate - high VTE Device Contraindication: N/A - Device Ordered VTE Drug Contraindication: Treatment Not Indicated
--- NOTE | 2023-08-24 12:30 | HO.ADDICTCON ---
History of Present Illness Date of Service: 08/24/23 Chief Complaint: Pancreatitis, alcohol withdrawal Reason for Consult: AUD Sources of Information: patient interviewed and chart reviewed HPI Narrative: Patient is a 38 year old female with alcohol use disorder currently medically admitted with pancreatitis. Seen in room 353, awake, alert, pleasant and engaged in interview. Tearful at times. Substance Use History: -currently drinking about a sleeve of vodka daily -problematic drinking started about 4 years ago while she was going through divorce -States that she was in treatment for over a month at the beginning of this year and abstained from alcohol for 2 months once she got home -was taking naltrexone and stopped once she started drinking again -denies any other substance use -reports this is her 4th admission with pancreatitis (this is her 1st admission to [facility]) She reports withdrawal sx have much improved, but she continues to have abdominal pain--feels it may be related to constipation as well. She attends AA meetings and recently acquired a sponsor. She started therapy last week. Identified stress with her ex as a major trigger as well as not being to see her daughter as often as she previously has (seeing her every other weekend now) Review of Systems Constitutional: Reports as per HPI Diagnostics Vital Signs (24Hr): Vital Signs - 24 hr 08/23/23 15:30 08/23/23 19:29 08/24/23 03:00 Temperature 97.2 F 97.2 F 97.2 F Pulse Rate 67 68 69 Respiratory Rate 13 16 18 Blood Pressure 152/69 H 152/93 H 150/94 H Pulse Oximetry 99 98 98 Oxygen Delivery Method Room Air Room Air Room Air 08/24/23 07:21 08/24/23 07:48 Temperature 97.9 F Pulse Rate 71 Respiratory Rate 18 Blood Pressure 159/99 H 159/99 H Pulse Oximetry 97 Oxygen Delivery Method Room Air BMI result Body Mass Index 23.2 Labs 08/24/23 05:43 08/24/23 05:43 Labs: Laboratory Results - last 48 hr 08/24/23 05:43 WBC 4.6 L RBC 3.85 L Hgb 12.3 Hct 33.6 L MCV 87.3 MCH 31.9 MCHC 36.6 H RDW 12.2 Plt Count 109 L MPV 9.5 Absolute Nucleated RBC 0.000 Nucleated RBC % (auto) 0.0 Sodium 138 Potassium 3.5 Chloride 102 Carbon Dioxide 30 H Anion Gap 10 L BUN < 3 L Creatinine 0.58 Estim Creat Clear Calc 126.6 Estimated GFR > 60 Random Glucose 117 H Calcium 8.8 D Total Bilirubin 0.3 AST 22 ALT 15 Alkaline Phosphatase 52 Total Protein 5.9 L Albumin 3.3 L Imaging Radiology Impressions: ITS Impressions Chest X-Ray 08/20/23 19:12 IMPRESSION: Nonspecific increased lung volumes, otherwise normal examination. Abdomen/Pelvis CT 08/21/23 15:13 IMPRESSION: Probable interstitial pancreatitis of the pancreatic head, adjacent fat stranding and small amount of fluid. There is a wall thickening of the adjacent proximal duodenum that may be reactive. Differential would include duodenitis. Enlarged fatty liver. Fleischner guidelines were followed. Mental Status Exam Mental Status Exam Patient Appearance: Appropriate Level of Consciousness: Awake and Appropriate Patient Behavior: Appropriate and Anxious Mood Description: Calm and Sad Affect Description: Sad Speech Pattern: Clear Judgement: Fair Medications Medications Current Medications Acetaminophen (Acetaminophen 325 Mg Tablet) 650 mg PO Q6H PRN PRN Reason: Pain, Mild (Pain Scale 1-3) Last Admin: 08/24/23 01:47 Dose: 650 mg Buspirone HCl (Buspirone Hcl 5 Mg Tablet) 15 mg PO BID [facility] Last Admin: 08/24/23 07:48 Dose: 15 mg Clonidine HCl (Clonidine Hcl 0.1 Mg Tablet) 0.1 mg PO BID [facility]; Protocol Last Admin: 08/24/23 07:48 Dose: 0.1 mg Cyanocobalamin (Cyanocobalamin (Vitamin B-12) 1,000 Mcg Tablet) 1,000 mcg PO DAILY [facility] Last Admin: 08/24/23 07:48 Dose: 1,000 mcg Enoxaparin Sodium (Enoxaparin Sodium 40 Mg/0.4 Ml Syringe) 40 mg SUBCUT Q24H [facility] Last Admin: 08/23/23 17:25 Dose: 40 mg Famotidine (Famotidine/Pf 20 Mg/2 Ml Vial) 20 mg IVPUSH DAILY [facility] Last Admin: 08/24/23 07:50 Dose: 20 mg Folic Acid (Folic Acid 1 Mg Tablet) 1 mg PO DAILY [facility] Last Admin: 08/24/23 07:54 Dose: 1 mg Hydroxyzine HCl (Hydroxyzine Hcl 50 Mg Tablet) 50 mg PO DAILY PRN PRN Reason: Anxiety Last Admin: 08/23/23 17:30 Dose: 50 mg Morphine Sulfate (Morphine Sulfate 4 Mg/Ml Cartridge) 2 mg IVPUSH Q3H PRN; Protocol PRN Reason: Pain, Severe (Pain Scale 7-10) Last Admin: 08/24/23 12:14 Dose: 2 mg Nicotine (Nicotine 14 Mg Patch.Td24) 14 mg TRANSDERMA DAILY [facility] Last Admin: 08/24/23 07:54 Dose: 14 mg Ondansetron HCl (Ondansetron Hcl 4 Mg/2 Ml Vial) 4 mg IVPUSH Q6H PRN PRN Reason: Nausea and Vomiting Last Admin: 08/24/23 01:45 Dose: 4 mg Oxycodone HCl (Oxycodone Hcl Immed Release 5 Mg Tablet) 5 mg PO Q6H PRN PRN Reason: Pain, Moderate(Pain Scale 4-6) Last Admin: 08/23/23 22:57 Dose: 5 mg Pharmacy Consult (Consult Rx Etoh Phenob Im/Po) 1 each MISCELLANE ONCE PRN; Protocol PRN Reason: Consult order Phenobarbital (Phenobarbital 15 Mg Tablet) 15 mg PO BID [facility]; Protocol Stop: 08/24/23 21:01 Last Admin: 08/24/23 07:55 Dose: 15 mg Phenobarbital (Phenobarbital 15 Mg Tablet) 15 mg PO DAILY [facility]; Protocol Stop: 08/26/23 09:01 Polyethylene Glycol (Polyethylene Glycol 3350 17 Gm Powd.Pack) 17 gm PO DAILY PRN PRN Reason: Constipation Last Admin: 08/24/23 07:55 Dose: 17 gm Sodium Chloride (0.9 % Sodium Chloride Flush 3 Ml [facility]) [facility] Last Admin: 08/24/23 07:47 Dose: 3 ml Thiamine HCl (Thiamine Hcl 100 Mg Tablet) 100 mg PO DAILY [facility] Last Admin: 08/24/23 07:49 Dose: 100 mg Allergies Allergies Allergy/AdvReac Type Severity Reaction Status Date / Time ibuprofen AdvReac Unknown Verified 08/20/23 17:47 ondansetron [From Zofran] AdvReac Unknown Verified 08/20/23 17:47 Assessment & Plan Assessment & Plan (1) Alcohol use disorder, severe, dependence: Status: Acute Code(s): F10.20 - Alcohol dependence, uncomplicated Assessment and Plan: interested in continuing Naltrexone upon discharge would like to establish care with [facility]-will follow up tmrw with an appt will discuss possible addition of antidepressant prior to discharge risk reduction discussion related to alcohol use (eating before drinking, water btwn drinks, vitamins daily, etc) Total time managing care of this patient today _45___ minutes. [facility] Past Medical History Medical History (Updated 08/24/23 @ 12:31 by Yarely Tidwell CNP) Alcoholism Anxiety Social History Social History Household Members: Other Household Members Other:: self and daughter comes every other weekend Housing: Apartment Do you presently have visiting nurse or other home services: No Alcohol intake: current Alcohol intake frequency: 3 or more drinks per day Patient Tobacco Use Status: Current everyday Tobacco user Tobacco use type: Cigarette e-Cigarette/Vaping Use: Currently Using Second Hand Smoke Exposure: Yes Substance Use Type: Marijuana service: No
[2023-08-24] MEDS: Enoxaparin Sodium 40 MG/0.4 ML SYRINGE SUBCUT (17:22)
--- NOTE | 2023-08-24 20:30 | PC.NURSE ---
This RN assumed care at 1900, Pt AOx4, Pt reporting 5/10 abd pain that is tolerable pablo. Respirations even an unlabored, clear lung sounds throughout. BSx4 hypoactive, abdomen tender to palpation, reports passing flatulence. Pt calm, cooperative and no apparent distress, call [place] within reach.
[2023-08-24] MEDS: hydrOXYzine HCL 50 MG TABLET PO (22:24)
[2023-08-25] MEDS: Morphine Sulfate 4 MG/ML CARTRIDGE 2 MG IVPUSH ×3 (00:35→08:52)
[2023-08-25] MEDS: Melatonin 3 MG TABLET 6 MG PO (00:36)
[2023-08-25 03:19] VITALS: BP 145/80; PULSE 61; RESP 16; TEMP 36; O2SAT 98
[2023-08-25 04:25] VITALS: RESP 16
[2023-08-25] MEDS: ondansetron HCL 4 MG/2 ML VIAL IVPUSH (04:30)
[2023-08-25 05:53] LABS: Anion Gap 12 (12-20); Blood Urea Nitrogen 4 mg/dL (9-16); Calcium 8.7 mg/dL (8.4-10.2); Carbon Dioxide 27 mmol/L (22-29); Chloride 102 mmol/L (96-108); Creatinine Clr Calc Pharmacy 120.4; Estimated Glomerular Filt Rate > 60; Glucose Random 127 mg/dL (60-115); Potassium 3.4 mmol/L (3.3-5.1); Sodium 138 mmol/L (135-145)
[2023-08-25 07:38] VITALS: BP 124/84; PULSE 64; RESP 16; TEMP 36.2; O2SAT 98
[2023-08-25] MEDS: Folic Acid 1 MG TABLET PO (08:50)
[2023-08-25 08:52] VITALS: RESP 18
[2023-08-25] MEDS: PHENobarbitaL 15 MG TABLET PO (08:52)
[2023-08-25] MEDS: 0.9 % Sodium Chloride Flush 3 ML SYRINGE IVFLUSH (08:52)
[2023-08-25] MEDS: Cyanocobalamin (Vitamin B-12) 1,000 MCG TABLET 1000 MCG PO (09:09)
[2023-08-25] MEDS: busPIRone HCl 5 MG TABLET 15 MG PO (09:09)
[2023-08-25 09:10] VITALS: BP 124/84
[2023-08-25] MEDS: Thiamine HCL 100 MG TABLET PO (09:10)
[2023-08-25] MEDS: cloNIDine HCL 0.1 MG TABLET PO (09:10)
[2023-08-25] MEDS: Famotidine/PF 20 MG/2 ML VIAL IVPUSH (09:19)
--- NOTE | 2023-08-25 10:35 | PM.DS ---
DS: Providers Provider Date of Service: 08/25/23 Date of admission: 08/21/23 17:20 Primary care physician: Helen Woodson NP Consults: 08/20/23 21:20 Consult to Care Team Stat Comment: Reason for consultation: Alcoholic with significant alcohol abuse history looking for detox 08/21/23 17:35 Addiction Medicine Routine Consulting Provider: Addiction Covering Reason for consultation: Alcohol dependence with withdrawal Has provider been notified: No DS: Diagnosis Discharge Diagnosis (1) Alcohol use disorder, severe, dependence: Status: Acute DS: Summary Hospital Course Hospital Course: History and physical as per admitting provider. This is a 38 year old female with history of alcohol dependence who presented to the emergency department seeking detox. The initial plan was for her to go to detox facility. During her stay in the emergency department she began experiencing symptoms of withdrawal and she was started on phenobarbital protocol. In addition she began having epigastric abdominal pain consistent with previous episodes of pancreatitis. Her lipase was obtained and was 82, a CT scan of her abdomen showed probable interstitial pancreatitis of the pancreatic head versus duodenitis. Patient has had nausea but no vomiting or diarrhea. She denies any fever, chills. The remainder of her workup was unremarkable. She does report drinking 10 nips daily with her last drink prior to her arrival yesterday evening. She has had previous episodes of alcohol induced pancreatitis and pain is similar to previous. It was described as burning and radiating around her side. She denies any urinary symptoms. She will be admitted for further management of alcohol withdrawal and acute alcoholic pancreatitis 38-year-old woman treated for acute pancreatitis secondary to alcohol use. She was treated with fluids, IV analgesics. Diet was advanced from clear to regular. Patient has no nausea vomiting. She was mild pains on and off but otherwise significantly improved woman admission. She has a history of alcohol abuse and was started on phenobarbital protocol. She was encouraged to stop drinking alcohol and seek outpatient resources for assistance with this. She was noted to have some transaminitis likely secondary to alcohol but did improve. Plan is for discharge home, patient is in agreement. Anxiety. Continue clonidine, BuSpar and Atarax History of constipation. Can continue MiraLax home Time Attestation Discharge Coordination Time (in mins): 35 Quality: Safe Use of Opioids Does Pt have an Active Cancer Diagnosis on the Problem List?: No Quality: Stroke Does the patient have a stroke diagnosis?: No Physical Exam Vital Signs: Vital Signs: Last Vital Signs Temp 97.2 F 08/25/23 07:38 Pulse 64 08/25/23 07:38 Resp 18 08/25/23 08:52 BP 124/84 08/25/23 09:10 Pulse Ox 98 08/25/23 07:38 O2 Del Method Room Air 08/25/23 07:38 BMI result Body Mass Index 23.2 Appearing in no acute distress head is normocephalic atraumatic eyes pupils are PERRLA sclera is anicteric mouth throat mucous membranes are intact and moist neck is supple no lymphadenopathy, no JVD noted lung sounds are clear to auscultation heart regular rate rhythm, clear S1, S2 positive bowel sounds, abdomen is soft, nontender neuro patient is alert x3, no focal deficits DS: Data Data Completed and Pending Labs on day of discharge: Laboratory Results - last 24 hr 08/25/23 05:14 Hold Purple Top SEE NOTE Sodium 138 Potassium 3.4 Chloride 102 Carbon Dioxide 27 Anion Gap 12 BUN 4 L Creatinine 0.61 Estim Creat Clear Calc 120.4 Estimated GFR > 60 Random Glucose 127 H Calcium 8.7 Discharge Plan Discharge Anticipated Discharge Date/Time: 08/25/23 10:26 Patient Disposition: Home, Self-Care Discharge Diagnosis: Pancreatitis alcohol use and dependence Referrals: Helen Woodson NP [Primary Care Provider] - 1 Week Discharge Medications: New oxycodone 5 mg Tablet 5 mg PO Q6H PRN (Reason: Pain, Moderate(Pain Scale 4-6)) Qty: 12 0RF Rx Instructions: Partial Fill upon patient request. Continued clonidine HCl 0.1 mg Tablet 0.1 mg PO BID cyanocobalamin (vitamin B-12) 1,000 mcg tablet 1,000 mcg PO DAILY hydroxyzine HCl 50 mg Tablet 50 mg PO DAILY PRN (Reason: Anxiety) buspirone 15 mg Tablet 15 mg PO BID Discharge Orders: Discharge Order (Routine); Ordered 08/25/23 Ordered By: Leann Lopez Diet: Advance to usual diet Activity on Discharge: As tolerated Stand Alone Forms: Patient Portal Discharge page, Work/School Release Print Language: Guamanian Care Plan Goals: Do not drink alcohol, seek outpatient supports for help with this Drink plenty of fluids Stick to a bland foods for about a week Health Concerns: Pancreatitis alcohol use and dependence Plan of Treatment: Primary care provider as needed Take all medications as prescribed Assessment: See discharge summary
--- NOTE | 2023-08-25 10:52 | MHC.CM.PN ---
PT IS DCD HOME SELF CARE
--- NOTE | 2023-08-25 11:18 | HO.ADDICTPRO ---
Subjective Subjective Date of Service: 08/25/23 Reason For Visit: Pancreatitis, alcohol withdrawal Interim History: Patient seen in follow up Reports she will be discharging today Provided patient with resources and information to schedule intake with [facility] Has an appt with psychiatric provider today at 1pm No questions or concerns at this time Review of Systems Constitutional: Reports as per HPI and Reports no additional constitutional complaints Mental Status Exam Mental Status Exam Patient Appearance: Well Grooomed and Appropriate Level of Consciousness: Awake and Alert Patient Behavior: Appropriate Mood Description: Anxious Affect Description: Anxious Diagnostics Vital Signs (24Hr): Vital Signs - 24 hr 08/24/23 15:19 08/24/23 15:32 08/24/23 19:44 Temperature 97.1 F 97.2 F Pulse Rate 71 66 Respiratory Rate 16 18 18 Blood Pressure 171/99 H 144/95 H Pulse Oximetry 98 98 Oxygen Delivery Method Room Air Room Air 08/24/23 20:11 08/25/23 03:19 08/25/23 04:25 Temperature 96.8 F Pulse Rate 61 Respiratory Rate 16 16 Blood Pressure 144/95 H 145/80 H Pulse Oximetry 98 Oxygen Delivery Method Room Air 08/25/23 07:38 08/25/23 08:52 08/25/23 09:10 Temperature 97.2 F Pulse Rate 64 Respiratory Rate 16 18 Blood Pressure 124/84 124/84 Pulse Oximetry 98 Oxygen Delivery Method Room Air BMI result Body Mass Index 23.2 Labs 08/24/23 05:43 08/25/23 05:14 Labs: Laboratory Results - last 48 hr 08/24/23 08/25/23 05:43 05:14 WBC 4.6 L RBC 3.85 L Hgb 12.3 Hct 33.6 L MCV 87.3 MCH 31.9 MCHC 36.6 H RDW 12.2 Plt Count 109 L MPV 9.5 Absolute Nucleated RBC 0.000 Nucleated RBC % (auto) 0.0 Hold Purple Top SEE NOTE Sodium 138 138 Potassium 3.5 3.4 Chloride 102 102 Carbon Dioxide 30 H 27 Anion Gap 10 L 12 BUN < 3 L 4 L Creatinine 0.58 0.61 Estim Creat Clear Calc 126.6 120.4 Estimated GFR > 60 > 60 Random Glucose 117 H 127 H Calcium 8.8 D 8.7 Total Bilirubin 0.3 AST 22 ALT 15 Alkaline Phosphatase 52 Total Protein 5.9 L Albumin 3.3 L Imaging Radiology Impressions: ITS Impressions Chest X-Ray 08/20/23 19:12 IMPRESSION: Nonspecific increased lung volumes, otherwise normal examination. Abdomen/Pelvis CT 08/21/23 15:13 IMPRESSION: Probable interstitial pancreatitis of the pancreatic head, adjacent fat stranding and small amount of fluid. There is a wall thickening of the adjacent proximal duodenum that may be reactive. Differential would include duodenitis. Enlarged fatty liver. Fleischner guidelines were followed. Medications Medications Current Medications Acetaminophen (Acetaminophen 325 Mg Tablet) 650 mg PO Q6H PRN PRN Reason: Pain, Mild (Pain Scale 1-3) Last Admin: 08/24/23 01:47 Dose: 650 mg Buspirone HCl (Buspirone Hcl 5 Mg Tablet) 15 mg PO BID [facility] Last Admin: 08/25/23 09:09 Dose: 15 mg Clonidine HCl (Clonidine Hcl 0.1 Mg Tablet) 0.1 mg PO BID [facility]; Protocol Last Admin: 08/25/23 09:10 Dose: 0.1 mg Cyanocobalamin (Cyanocobalamin (Vitamin B-12) 1,000 Mcg Tablet) 1,000 mcg PO DAILY [facility] Last Admin: 08/25/23 09:09 Dose: 1,000 mcg Enoxaparin Sodium (Enoxaparin Sodium 40 Mg/0.4 Ml Syringe) 40 mg SUBCUT Q24H [facility] Last Admin: 08/24/23 17:22 Dose: 40 mg Famotidine (Famotidine/Pf 20 Mg/2 Ml Vial) 20 mg IVPUSH DAILY [facility] Last Admin: 08/25/23 09:19 Dose: 20 mg Folic Acid (Folic Acid 1 Mg Tablet) 1 mg PO DAILY [facility] Last Admin: 08/25/23 08:50 Dose: 1 mg Hydroxyzine HCl (Hydroxyzine Hcl 50 Mg Tablet) 50 mg PO DAILY PRN PRN Reason: Anxiety Last Admin: 08/24/23 22:24 Dose: 50 mg Melatonin (Melatonin 3 Mg Tablet) 6 mg PO BEDTIME PRN PRN Reason: insomnia Last Admin: 08/25/23 00:36 Dose: 6 mg Morphine Sulfate (Morphine Sulfate 4 Mg/Ml Cartridge) 2 mg IVPUSH Q3H PRN; Protocol PRN Reason: Pain, Severe (Pain Scale 7-10) Last Admin: 08/25/23 08:52 Dose: 2 mg Nicotine (Nicotine 14 Mg Patch.Td24) 14 mg TRANSDERMA DAILY [facility] Last Admin: 08/25/23 08:58 Dose: Not Given Ondansetron HCl (Ondansetron Hcl 4 Mg/2 Ml Vial) 4 mg IVPUSH Q6H PRN PRN Reason: Nausea and Vomiting Last Admin: 08/25/23 04:30 Dose: 4 mg Oxycodone HCl (Oxycodone Hcl Immed Release 5 Mg Tablet) 5 mg PO Q6H PRN PRN Reason: Pain, Moderate(Pain Scale 4-6) Last Admin: 08/23/23 22:57 Dose: 5 mg Pharmacy Consult (Consult Rx Etoh Phenob Im/Po) 1 each MISCELLANE ONCE PRN; Protocol PRN Reason: Consult order Phenobarbital (Phenobarbital 15 Mg Tablet) 15 mg PO DAILY [facility]; Protocol Stop: 08/26/23 09:01 Last Admin: 08/25/23 08:52 Dose: 15 mg Polyethylene Glycol (Polyethylene Glycol 3350 17 Gm Powd.Pack) 17 gm PO DAILY PRN PRN Reason: Constipation Last Admin: 08/24/23 07:55 Dose: 17 gm Sodium Chloride (0.9 % Sodium Chloride Flush 3 Ml Syringe) 3 ml IVFLUSH QSHIFT [facility] Last Admin: 08/25/23 08:52 Dose: 3 ml Thiamine HCl (Thiamine Hcl 100 Mg Tablet) 100 mg PO DAILY [facility] Last Admin: 08/25/23 09:10 Dose: 100 mg Allergies Allergies Allergy/AdvReac Type Severity Reaction Status Date / Time ibuprofen AdvReac Unknown Verified 08/20/23 17:47 ondansetron [From Zofran] AdvReac Unknown Verified 08/20/23 17:47 Assessment & Plan Assessment & Plan (1) Alcohol use disorder, severe, dependence: Status: Acute Code(s): F10.20 - Alcohol dependence, uncomplicated Assessment and Plan: patient to schedule intake with [facility] will restart naltrexone once home (she has a prescription) risk reduction information provided Total time managing care of this patient today __15__ minutes.
== END 2023-08-25 11:43 | disposition home or self-care (01) | DRG 282 ==
LOC: HO.ED 08-21 06:51 → HO.EDOVER 08-21 17:25 → HO.S3 08-22 08:17
PROVIDERS: Emergency Medicine; Family Medicine; Physician Assistant Medical; Admitting Provider Physician Assistant Medical; Emergency Provider Emergency Medicine Emergency Medical Services; PCP Nurse Practitioner; Visit Provider Nurse Practitioner Acute Care
DX: K85.20 Alcohol induced acute pancreatitis without necrosis or infection (principal); F10.229 Alcohol dependence with intoxication, unspecified; F10.239 Alcohol dependence with withdrawal, unspecified; F17.210 Nicotine dependence, cigarettes, uncomplicated; K59.00 Constipation, unspecified; F41.9 Anxiety disorder, unspecified; Z71.6 Tobacco abuse counseling; Y90.8 Blood alcohol level of 240 mg/100 ml or more; Z79.899 Other long term (current) drug therapy
CPT/HCPCS: 36415; 71046; 74177; 80048; 80053; 80076; 80307; 81003; 81025; 82746; 83690; 83735; 84484; 85025; 85027; 85610; 93005; 99285; J0613; J1200; J1650; J2270; J2405; J2560; J2765; J7120; Q9967

== ENCOUNTER → 2023-08-20 17:48 | Outpatient (BNV) | payer OTHER, SELFPAY | PROVIDERS: Emergency Provider Emergency Medicine Emergency Medical Services; PCP Nurse Practitioner; Visit Provider Internal Medicine Cardiovascular Disease | DX: R94.31 Abnormal electrocardiogram [ECG] [EKG] (principal) | CPT/HCPCS: 93010 ==

== ENCOUNTER 2023-08-21 17:20 | Outpatient (BNV) | payer OTHER, SELFPAY | END 2023-08-22 11:29 | PROVIDERS: Admitting Provider Physician Assistant Medical; Emergency Provider Emergency Medicine Emergency Medical Services; PCP Nurse Practitioner; Visit Provider Internal Medicine Cardiovascular Disease | DX: R94.31 Abnormal electrocardiogram [ECG] [EKG] (principal) | CPT/HCPCS: 93010 ==

== ENCOUNTER → 2023-08-21 17:20 | Outpatient (BNV) | payer OTHER, SELFPAY | PROVIDERS: Admitting Provider Physician Assistant Medical; Emergency Provider Emergency Medicine Emergency Medical Services; PCP Nurse Practitioner; Visit Provider Nurse Practitioner Psychiatric/Mental Health | DX: F10.20 Alcohol dependence, uncomplicated (principal) | CPT/HCPCS: 99231; 99232 ==

== ENCOUNTER → 2023-08-21 17:20 | Outpatient (BNV) | payer OTHER, SELFPAY | PROVIDERS: Admitting Provider Physician Assistant Medical; Emergency Provider Emergency Medicine Emergency Medical Services; PCP Nurse Practitioner; Visit Provider Physician Assistant Medical | DX: F10.20 Alcohol dependence, uncomplicated (principal) | CPT/HCPCS: 99223; 99232; 99239 ==

== ENCOUNTER 2024-01-31 09:25 | Inpatient (IN) | payer OTHER, SELFPAY ==
[2024-01-31] VITALS (7 sets, daily range): BP systolic 144–179; BP diastolic 96–113; PULSE 90–108; RESP 14–20; TEMP 36.8–37.1; O2SAT 97–99; BMI 23.5; BMI 27.1
--- NOTE | 2024-01-31 | ECG_ITS ---
Test Reason : PREVIOUS WITH PROLONGED QTC Blood Pressure : / mmHG Vent. Rate : 088 BPM Atrial Rate : 088 BPM P-R Int : 154 ms QRS Dur : 088 ms QT Int : 418 ms P-R-T Axes : 065 041 053 degrees QTc Int : 505 ms Normal sinus rhythm Prolonged QT Abnormal ECG When compared with ECG of 31-JAN-2024 09:22, Borderline criteria for Inferior infarct are no longer Present QT has shortened Referred By: Marlon Bell Electronically Signed By:NISHA IRVIN MD
--- NOTE | ~2024-01-31 | CT_ITS ---
EXAMINATION: CT ABDOMEN AND PELVIS WITH CONTRAST CLINICAL INFORMATION: Abdominal pain. Pancreatitis. COMPARISON: CT abdomen/pelvis dated 08/21/2023. TECHNIQUE: Multidetector volumetric images were obtained from the superior aspect of the liver through the pubic symphysis following administration 85 mL of Omnipaque 350 intravenous contrast. Sagittal and coronal reformatted images were obtained on the technologist's workstation. Oral contrast: No. This CT examination was performed using dose optimization techniques as appropriate, variously including the following: *Automated exposure control *Adjustment of mA and/or kV according to patient size (this includes techniques or standardized protocols for targeted exams where dose is matched to indication/reason for exam; i.e. extremities or head) *Use of iterative reconstruction technique DLP: 569 mGy-cm FINDINGS: LUNG BASES: The visualized lung bases are unremarkable. LIVER, GALLBLADDER, AND BILIARY TREE: The liver is normal in size, shape, and attenuation. No focal hepatic lesion or biliary ductal dilatation is present. The gallbladder is unremarkable with no evidence of radiopaque gallstones, gallbladder wall thickening, or obvious pericholecystic inflammatory changes. PANCREAS: Heterogeneity of the pancreatic head and uncinate process is redemonstrated with prominent adjacent stranding extending along the body and tail, similar when compared to the prior examination and consistent with acute pancreatitis. No organized fluid collection or evidence of pseudocyst formation. No discrete pancreatic parenchymal lesion or ductal dilatation. SPLEEN: Unremarkable. ADRENAL GLANDS: Unremarkable. KIDNEYS AND URETERS: The kidneys are normal in size, shape, and attenuation. No hydronephrosis, hydroureter, or calculi seen. No perinephric stranding. BLADDER: Unremarkable. GASTROINTESTINAL TRACT: Significant wall thickening involving the first and second portion of the duodenum with prominent enhancement and adjacent stranding. Findings are consistent with duodenitis reactive to the adjacent pancreatitis. No evidence of bowel perforation. No additional bowel wall thickening or inflammatory change. No small or large bowel obstruction. Unremarkable appendix. PERITONEAL CAVITY: Small amount of simple ascites. No organized fluid collection or abscess formation. No intra-abdominal free air. ABDOMINAL WALL: No significant hernia is appreciated. LYMPH NODES: No lymphadenopathy. VASCULAR: Unremarkable. PELVIC VISCERA: The uterus and adnexa are unremarkable. OSSEOUS STRUCTURES: Unremarkable. CT/CT abdomen pelvis w IV con IMPRESSION: 1. Findings consistent with acute pancreatitis, similar when compared to the prior examination. No organized fluid collection or abscess formation. No pancreatic parenchymal lesion or ductal dilatation. 2. Significant wall thickening and enhancement involving the first and second portion of the duodenum with adjacent stranding, consistent with duodenitis reactive to adjacent pancreatitis. No evidence of bowel perforation. 3. Small amount of simple ascites. No organized fluid collection or abscess formation. No intra-abdominal free air. Fleischner guidelines were followed. Electronically signed by: Cory Fajardo MD 01/31/2024 12:14 PM [facility]
--- NOTE | 2024-01-31 09:28 | ECG_ITS ---
Test Reason : cp Blood Pressure : / mmHG Vent. Rate : 110 BPM Atrial Rate : 110 BPM P-R Int : 128 ms QRS Dur : 082 ms QT Int : 420 ms P-R-T Axes : 072 022 075 degrees QTc Int : 568 ms Sinus tachycardia Possible Inferior infarct , age undetermined Prolonged QT Abnormal ECG When compared with ECG of 22-AUG-2023 11:29, Borderline criteria for Inferior infarct are now Present ST now depressed in Anterior leads QT has lengthened Referred By: Generic ED Physician Electronically Signed By:NISHA IRVIN MD
[2024-01-31 09:52] LABS: MANUAL DIFF FLAG NO
[2024-01-31 09:53] LABS: Basophils Absolute Auto 0.1 X10*3/uL (0.0-0.2); Basophils Percent Auto 0.4 % (0-2); Eosinophils Absolute Auto 0.1 X10*3/uL (0.0-0.4); Eosinophils Percent Auto 0.7 % (0-4); Hematocrit 46.4 % (37.0-47.0); Hemoglobin 16.3 g/dl (12.0-16.0); Imm Gran Pct Auto 1.2 % (0.0-0.4); Lymphocytes Absolute Auto 1.2 X10*3/uL (1.2-4.9); Lymphocytes Percent Auto 7.2 % (20-40); Mean Corpuscular HGB Conc 35.1 g/dl (31.0-35.0); Mean Corpuscular Hemoglobin 31.7 pg (27.0-33.0); Mean Corpuscular Volume 90.1 fL (80.0-98.0); Mean Platelet Volume 8.8 fL (9.4-12.3); Monocytes Percent Auto 5.7 % (2-11); Neutrophils Absolute Auto 14.6 x10*3/uL (2.0-8.3); Neutrophils Percent Auto 84.8 % (45-73); Platelet Count 169 X10*3/uL (160-400); Red Blood Count 5.15 X10*6/uL (4.20-5.50); Red Cell Distribution Width 12.5 % (11.0-16.0)
[2024-01-31 09:58] LABS: White Blood Count 17.2 X10*3/uL (4.8-10.8)
--- NOTE | 2024-01-31 09:58 | ED.NAVMDI ---
HPI - Nausea/Vomiting/Diarrhea General Chief complaint: Nausea/Vomiting/Diarrhea Stated complaint: Chest pain Vomiting since thursday Time Seen by Provider: 01/31/24 09:46 Source: patient Mode of arrival: ambulatory Limitations: no limitations History of Present Illness ED Provider: LD LEE Narrative: 38 yo female with PMH of ETOH use disorder last drink yesterday no seizures, prolonged qtc, pancreatitis here with n/v and upper abdominal pain since Thursday. She is worried she has pancreatitis again. No fevers or diarrhea reported. Has not seen her PCP in a while is not on any therapy for ETOH use. MD elicited complaint: nausea, vomiting and abdominal pain Pertinent past history: alcohol abuse and pacreatitis Onset (ago): day(s) (2) Description of vomiting: food contents Associated nausea: Yes Associated abdominal pain: Yes Location of pain: epigastric Radiation: other (back) Pain consistency: constant Severity: moderate Quality: sharp and constant Exacerbating factors: eating and movement Relieving factors: none Context: alcohol abuse Associated symptoms: loss of appetite, nausea/vomiting, weakness and anxiety Related Data Home Medications ?Medication ?Instructions ?Recorded ?Confirmed buspirone 15 mg tablet 15 mg PO BID 08/21/23 08/21/23 clonidine HCl 0.1 mg tablet 0.1 mg PO BID 08/21/23 08/21/23 cyanocobalamin (vitamin B-12) 1,000 mcg PO DAILY 08/21/23 08/21/23 1,000 mcg tablet hydroxyzine HCl 50 mg tablet 50 mg PO DAILY PRN Anxiety 08/21/23 08/21/23 Previous Rx's ?Medication ?Instructions ?Recorded oxycodone 5 mg tablet 5 mg PO Q6H PRN Pain, 08/25/23 Moderate(Pain Scale 4-6) #12 tabs Allergies Allergy/AdvReac Type Severity Reaction Status Date / Time ibuprofen AdvReac Unknown Verified 01/31/24 09:36 ondansetron [From Zofran] AdvReac Unknown Verified 01/31/24 09:36 Review of Systems Review of Systems: Constitutional : No Weight loss, No Fever, No Chills ENT/Mouth : No sore throat, No Rhinorrhea Eyes: No Swelling, No Redness Cardiovascular : No Chest Pain, No SOB, NoEdema Respiratory : No Cough, No Sputum, No Wheezing Gastrointestinal : Positive Nausea, Positive Vomiting, no Diarrhea, positive abdominal Pain, No Hematochezia, No Melena Genitourinary : No Dysuria, No Urinary Frequency, No Hematuria, No Urgency Musculoskeletal : No joint pain, No Myalgias, No Joint Swelling Skin : No Skin Lesions, No rash Neuro : No Weakness, No Numbness, No Dizziness, No Headache Psych : No Anxiety/Panic, No Depression All other systems reviewed and are negative. Gastrointestinal: Gastrointestinal: Reports nausea PMFSH Past Medical History Medical History (Updated 01/31/24 @ 12:01 by Lexy Oneill DO) Alcoholism Anxiety Social History Social History Household Members: Other Household Members Other:: self and daughter comes every other weekend Housing: Apartment Do you presently have visiting nurse or other home services: No Alcohol intake: current Alcohol intake frequency: 3 or more drinks per day Alcohol type: hard liquor Patient Tobacco Use Status: Current everyday Tobacco user Tobacco use type: Cigarette Smoked in Last 30 Days: No e-Cigarette/Vaping Use: Currently Using Second Hand Smoke Exposure: Yes Use of substances other than those prescribed or required for medical reasons: No Substance Use Type: Marijuana Advance Directives: No Advance Directives Information Provided: Yes Do you have a plan to hurt others: No Plan service: No Physical Exam Vital Signs: Vital Signs: Last Vital Signs Temp 98.2 F 01/31/24 11:47 Pulse 101 H 01/31/24 11:47 Resp 14 01/31/24 11:47 BP 179/113 H 01/31/24 11:47 Pulse Ox 99 01/31/24 11:47 O2 Del Method Room Air 01/31/24 11:47 BMI result Body Mass Index 23.5 Appearance: Alert. Oriented X3. No acute distress. anxious Eyes: Pupils equal, round and reactive to light. ENT: Pharynx mildly dry MM Neck: Normal inspection. Neck supple. CVS: tachycardic heart rate and rhythm. Pulses normal. Respiratory: No respiratory distress. Breath sounds normal. Abdomen: Soft and moderate epigastric ttp Skin: Skin warm and dry. Normal skin color. Normal skin turgor. Extremities: No lower extremity edema. Neuro: Oriented X 3. No motor deficit. No sensory deficit. Mild tremors Course Course Course Narrative: gap from ETOH use and AKA Reevaluation(s) Reevaluation #1: WBC count due to vomiting and not infection or severe sepsis Medications Administered Discontinued Medications Generic Name Dose Route Start Last Admin Trade Name Jessica PRN Reason Stop Dose Admin Hydromorphone HCl 1 mg 01/31/24 12:04 01/31/24 12:09 Hydromorphone Hcl 1 Mg/Ml Syringe IVPUSH 01/31/24 12:05 1 mg ONCE ONE Administration Protocol Thiamine HCl 200 mg/ Sodium 102 mls @ 204 mls/hr 01/31/24 09:44 01/31/24 12:06 Chloride IV 01/31/24 10:13 Infused ONCE ONE Infusion Magnesium Sulfate 2 gm in 50 mls @ 25 mls/hr 01/31/24 09:44 01/31/24 10:15 Magnesium Sulfate/H2o IV 01/31/24 11:43 25 mls/hr ONCE ONE Administration Sodium Chloride 1,000 mls @ 999 mls/hr 01/31/24 09:45 01/31/24 10:13 Ns IV 01/31/24 10:45 999 mls/hr .Q1H1M ONE Administration Lactated Ringer's 1,000 mls @ 999 mls/hr 01/31/24 10:23 01/31/24 12:14 Lr IV 01/31/24 11:23 999 mls/hr .Q1H1M ONE Administration Iohexol 100 ml 01/31/24 11:50 01/31/24 11:51 Iohexol 350 Mg/Ml 100 Ml Infus..Btl IV 01/31/24 11:51 85 ml ONCE ONE Administration Lorazepam 1 mg 01/31/24 09:44 01/31/24 10:15 Lorazepam 2 Mg/Ml Vial IVPUSH 01/31/24 09:45 1 mg STAT STA Administration Morphine Sulfate 4 mg 01/31/24 09:57 01/31/24 10:13 Morphine Sulfate 4 Mg/Ml Cartridge IVPUSH 01/31/24 09:58 4 mg ONCE ONE Administration Protocol Phenobarbital Sodium 299 mg 01/31/24 11:00 01/31/24 10:57 Phenobarbital Sodium 130 Mg/Ml Im Once IM 01/31/24 11:01 299 mg ONCE ONE Administration Protocol Medical Decision Making Medical Decision Making MDM Narrative: 38 yo female with ETOH use disorder last drink yesterday denies prior withdrawal seizures - she comes in with n/v epigastric pain since Thursday concerned she has pancreatitis again - at this time qtc 568 started on IV ativan, morphine, thiamine and magnesium. Possible pancreatitis, gastritis, lyte abnormality, dehydration. IVF ordered as well. Differential Diagnosis Differential Diagnoses: The differential diagnosis associated with the presentation includes alcoholic gastrits, pancreatitis, lyte abnormality Admission/Observation Consideration of admission/observation: Escalation of care including admission/observation considered admit for further management and work up Consult Healthcare Provider Management of the patient was discussed with: Hospitalist (will admit) Lab Data [facility] Lab Attestation statement: I reviewed the patient's lab results. 01/31/24 09:48 01/31/24 09:48 Labs: Lab Results 01/31/24 Range/Units 09:48 WBC 17.2 H (4.8-10.8) X10*3/uL RBC 5.15 D (4.20-5.50) X10*6/uL Hgb 16.3 H D (12.0-16.0) g/dl Hct 46.4 D (37.0-47.0) % MCV 90.1 (80.0-98.0) fL MCH 31.7 (27.0-33.0) pg MCHC 35.1 H (31.0-35.0) g/dl RDW 12.5 (11.0-16.0) % Plt Count 169 D (160-400) X10*3/uL MPV 8.8 L (9.4-12.3) fL Immature Gran % (Auto) 1.2 H (0.0-0.4) % Neut % (Auto) 84.8 H (45-73) % Lymph % (Auto) 7.2 L (20-40) % [place] % (Auto) 5.7 (2-11) % Eos % (Auto) 0.7 (0-4) % Baso % (Auto) 0.4 (0-2) % Lymph # (Auto) 1.2 (1.2-4.9) X10*3/uL [place] # (Auto) 1.0 (0.1-1.2) X10*3/uL Eos # (Auto) 0.1 (0.0-0.4) X10*3/uL Baso # (Auto) 0.1 (0.0-0.2) X10*3/uL Abs Immat Gran (auto) 0.20 H (0.00-0.03) X10*3/uL Absolute Neuts (auto) 14.6 H (2.0-8.3) x10*3/uL Absolute Nucleated RBC 0.000 (0.0-0.012) X10*3/uL Nucleated RBC % (auto) 0.0 (0.0-0.2) /100WBC aPTT Heparin Protocol 28.9 L (53-77.9) SEC Sodium 138 (135-145) mmol/L Potassium 3.3 (3.3-5.1) mmol/L Chloride 104 (96-108) mmol/L Carbon Dioxide 16 L (22-29) mmol/L Anion Gap 21 H (12-20) BUN 11 (9-16) mg/dL Creatinine 0.63 (0.5-1.4) mg/dL Estim Creat Clear Calc 116.5 Estimated GFR > 60 Random Glucose 180 H (60-115) mg/dL Calcium 9.5 D (8.4-10.2) mg/dL Magnesium 1.8 (1.6-2.6) mg/dL Total Bilirubin 1.1 H (0.0-1.0) mg/dL Direct Bilirubin 0.4 (0.0-0.5) mg/dL AST 40 H (5-31) U/L ALT 45 H (0-31) U/L Alkaline Phosphatase 83 (39-117) U/L Lactate Dehydrogenase 239 H (122-220) U/L Troponin I High Sens < 2.7 (<3.5-17.0) ng/L Total Protein 7.7 (6.5-8.0) g/dL Albumin 4.5 (3.5-5.0) g/dL Lipase 958 H (8-78) U/L Beta HCG, Quant < 2 mIU/mL Ethyl Alcohol < 10 mg/dL Influenza Type A (PCR) NEGATIVE (Negative) Influenza Type B (PCR) NEGATIVE (Negative) RSV RNA Qual (PCR) NEGATIVE (Negative) SARS-CoV-2 RNA (RT-PCR) NEGATIVE (Negative) Independent Interpretation I performed an independent interpretation of an: EKG and CT Scan (+ pancreatitis) Interpretation: Rate: 110 Rhythm: sinus tachycardia [place]: normal Normal P waves. Normal NANCY. Normal QRS complex. ST T wave : no LUIZ, nonspecific ST T wave changes inf leads likely related to prolonged qtc qTC: 568 prior studies: no acute ischemia The study has been interpreted contemporaneously by me. . Radiology Impression Discussion of test interpretation with radiology: I have reviewed the radiologist's reading. External Record Review External record reviewed: Inpatient record Discharge Plan Discharge Clinical Impression: Prolonged QT interval Alcohol withdrawal Qualifiers: Complication of substance-induced condition: uncomplicated Qualified Code(s): F10.930 - Alcohol use, unspecified with withdrawal, uncomplicated Alcoholic pancreatitis Qualifiers: Chronicity: acute Acute pancreatitis complication: no infection or necrosis Qualified Code(s): K85.20 - Alcohol induced acute pancreatitis without necrosis or infection Nausea & vomiting Qualifiers: Vomiting type: unspecified Qualified Code(s): R11.2 - Nausea with vomiting, unspecified Patient Disposition: Admitted As Inpatient Print Language: Panamanian
[2024-01-31 10:02] LABS: PTT Heparin Drip 28.9 SEC (53-77.9)
[2024-01-31] MEDS: 0.9 % Sodium Chloride 1,000 ML 999 ML IV (10:13)
[2024-01-31] MEDS: Morphine Sulfate 4 MG/ML CARTRIDGE IVPUSH ×2 (10:13→14:43)
[2024-01-31] MEDS: Thiamine HCL 200 MG in 0.9 % Sodium Chloride 100 ML 204 MG IV (10:14)
[2024-01-31] MEDS: Magnesium Sulfate/H2O 2 GM/50 ML PIGGYBACK IV (10:15)
[2024-01-31] MEDS: LORazepam 2 MG/ML VIAL 1 MG IVPUSH (10:15)
[2024-01-31 10:18] LABS: Alanine Aminotransferase 45 U/L (0-31); Albumin Level 4.5 g/dL (3.5-5.0); Alkaline Phosphatase 83 U/L (39-117); Anion Gap 21 (12-20); Aspartate Amino Transferase 40 U/L (5-31); Bilirubin Direct 0.4 mg/dL (0.0-0.5); Bilirubin Total 1.1 mg/dL (0.0-1.0); Blood Urea Nitrogen 11 mg/dL (9-16); Calcium 9.5 mg/dL (8.4-10.2); Carbon Dioxide 16 mmol/L (22-29); Chloride 104 mmol/L (96-108); Creatinine Clr Calc Pharmacy 116.5; Estimated Glomerular Filt Rate > 60; Ethanol < 10 mg/dL; Glucose Random 180 mg/dL (60-115); Magnesium 1.8 mg/dL (1.6-2.6); Potassium 3.3 mmol/L (3.3-5.1); Sodium 138 mmol/L (135-145); Total Protein 7.7 g/dL (6.5-8.0)
[2024-01-31 10:20] LABS: Lipase 958 U/L (8-78); Troponin-I High Sensitivity < 2.7 ng/L (<3.5-17.0)
[2024-01-31 10:32] LABS: Lactate Dehydrogenase 239 U/L (122-220)
[2024-01-31 10:37] LABS: Influenza A PCR NEGATIVE (Negative); Influenza B PCR NEGATIVE (Negative); Resp Syncy Virus RNA Qual PCR NEGATIVE (Negative); SARS COV2 PCR INHOUSE NEGATIVE (Negative)
[2024-01-31 10:39] LABS: HCG Quantitative < 2 mIU/mL
[2024-01-31] MEDS: PHENobarbitaL sodium 130 MG/ML IM ONCE 299 MG IM (10:57)
[2024-01-31] MEDS: iohexoL 350 MG/ML 100 ML INFUS..BTL IV (11:51)
[2024-01-31] MEDS: HYDROmorphone HCl 1 MG/ML SYRINGE IVPUSH ×2 (12:09→19:42)
[2024-01-31] MEDS: Lactated Ringers 1,000 ML 999 ML IV (12:14)
--- NOTE | 2024-01-31 12:26 | PM.IMHP ---
History of Present Illness Date of Service: 01/31/24 Attending physician on admission: Leslie Laws Chief Complaint: Nausea/vomiting/abdominal pain Pt is a 38-year-old female with a PMH significant for?alcohol use disorder with hx of withdrawal, hx of alcoholic pancreatitis x3, and childhood seizure disorder w/last seizure over 20 years ago not on home meds who presents to the ED with?nausea, vomiting, abdominal pain x2 days. Patient reports symptoms began late Thursday night when she was awoken from sleep with intractable nausea and vomiting. Abdominal pain was like a band around upper abdomen wrapping around to her back, similar to previous episodes of pancreatitis. Patient reports has been drinking 10+ nips of vodka daily for a long time with last drink yesterday. No fever, though subjective chills. No cough or shortness of breath. Denies polyuria or dysuria. In the ED pt was tachycardic up to 108 and was hypertensive at 179/113. Labs were significant for leukocytosis of 17.2, lipase 958, and mild transaminitis of AST 40 and ALT 45. Ethyl alcohol levels undetectable. CT of abdomen and pelvis with findings consistent with acute pancreatitis and duodenitis likely reactive. No abscess, parenchymal lesion, or ductal dilation. EKG demonstrated sinus tachycardia of 110 with prolonged QTc of 568. Pt was treated with IVF, morphine, thiamine, Mag sulfate, Ativan, hydromorphone, and started on phenobarb protocol. Pt will be admitted to the hospital for treatment further evaluation of acute pancreatitis. Review of Systems Review of Systems: Negative except for that which is stated in the [facility] Medical History Alcoholism Anxiety Social History Household Members: Family Household Members Other:: self and daughter comes every other weekend Housing: House Do you presently have visiting nurse or other home services: No Alcohol intake: current Alcohol intake frequency: 3 or more drinks per day Alcohol type: hard liquor Patient Tobacco Use Status: Current everyday Tobacco user Tobacco use type: Cigarette Cigarette Packs Per Day: 0.5 Cigarettes Per Day: 10.0 Smoked in Last 30 Days: Yes e-Cigarette/Vaping Use: Never Used Patient Interested in Nicotine Replacement: Yes Patient Given Instructions on How to Stop Smoking: Yes Date Education Initiated: 01/31/24 Second Hand Smoke Exposure: Yes Use of substances other than those prescribed or required for medical reasons: Yes Substance Use Type: Marijuana Currently Displaying Signs/Symptoms of Drug Intoxication Withdrawal: No Have you been hit, kicked, punched, or otherwise hurt by someone within the past year? If so, by whom?: No Advance Directives: No Advance Directives Information Provided: Yes Do you have a plan to hurt others: No Plan Recently lost weight without trying: No Eating poorly because of decreased appetite: No Nutrition Risks: No Nutritional Risk Patient : No service: No Meds Allergies Allergy/AdvReac Type Severity Reaction Status Date / Time ibuprofen AdvReac Unknown Verified 01/31/24 09:36 ondansetron [From Zofran] AdvReac Unknown Verified 01/31/24 09:36 Active Medications: Current Medications Pharmacy Consult (Consult Rx Etoh Phenob Im/Po) 1 each MISCELLANE ONCE PRN; Protocol PRN Reason: Consult order Phenobarbital (Phenobarbital 15 Mg Tablet) 45 mg PO BID VICKY; Protocol Stop: 02/02/24 21:01 Phenobarbital (Phenobarbital 15 Mg Tablet) 15 mg PO BID VICKY; Protocol Stop: 02/04/24 21:01 Phenobarbital (Phenobarbital 15 Mg Tablet) 15 mg PO DAILY [facility]; Protocol Stop: 02/06/24 09:01 Phenobarbital Sodium (Phenobarbital Sodium 130 Mg/Ml Vial Im Q3hx2) 221 mg IM Q3H VICKY; Protocol Stop: 01/31/24 17:01 Home Medications ?Medication ?Instructions ?Recorded ?Confirmed ?Last Taken ?Type buspirone 15 mg tablet 15 mg PO BID 08/21/23 01/31/24 01/29/24 History hydroxyzine HCl 50 mg tablet 50 mg PO DAILY PRN Anxiety 08/21/23 01/31/24 08/20/23 06:00 History clonidine HCl 0.1 mg tablet 0.1 mg PO BID Anxiety 01/31/24 01/31/24 01/29/24 History mirtazapine 15 mg tablet 15 mg PO BEDTIME 01/31/24 01/31/24 01/29/24 History Physical Exam Vital Signs and Narrative: Vital Signs: Last Vital Signs Temp 98.2 F 01/31/24 11:47 Pulse 101 H 01/31/24 11:47 Resp 14 01/31/24 11:47 BP 179/113 H 01/31/24 11:47 Pulse Ox 99 01/31/24 11:47 O2 Del Method Room Air 01/31/24 11:47 BMI result Body Mass Index 23.5 General: AOx3, no acute distress Resp: CTA bilaterally CVS: S1, S2, RRR GI: +BS, soft, no distention. Diffuse mild abdominal tenderness Skin: Warm, dry Neuro: Cranial nerves II-XII grossly intact bilaterally. Motor grossly intact bilaterally. Mild upper extremity tremors Extremities: No edema Psych: Emotional, tearful Results Labs 02/01/24 06:36 02/01/24 06:36 Labs: Laboratory Results - last 24 hr 01/31/24 09:48 MCV 90.1 MCH 31.7 MCHC 35.1 H RDW 12.5 Plt Count 169 D MPV 8.8 L Immature Gran % (Auto) 1.2 H Neut % (Auto) 84.8 H Lymph % (Auto) 7.2 L [place] % (Auto) 5.7 Eos % (Auto) 0.7 Baso % (Auto) 0.4 Lymph # (Auto) 1.2 [place] # (Auto) 1.0 Eos # (Auto) 0.1 Baso # (Auto) 0.1 Abs Immat Gran (auto) 0.20 H Absolute Neuts (auto) 14.6 H Absolute Nucleated RBC 0.000 Nucleated RBC % (auto) 0.0 aPTT Heparin Protocol 28.9 L Anion Gap 21 H Estim Creat Clear Calc 116.5 Estimated GFR > 60 Random Glucose 180 H Calcium 9.5 D Magnesium 1.8 Total Bilirubin 1.1 H Direct Bilirubin 0.4 AST 40 H ALT 45 H Alkaline Phosphatase 83 Lactate Dehydrogenase 239 H Troponin I High Sens < 2.7 Total Protein 7.7 Albumin 4.5 Lipase 958 H Beta HCG, Quant < 2 Ethyl Alcohol < 10 Influenza Type A (PCR) NEGATIVE Influenza Type B (PCR) NEGATIVE RSV RNA Qual (PCR) NEGATIVE SARS-CoV-2 RNA (RT-PCR) NEGATIVE Imaging Radiologist's Impressions: Impressions Abdomen/Pelvis CT 01/31/24 11:04 IMPRESSION: 1. Findings consistent with acute pancreatitis, similar when compared to the prior examination. No organized fluid collection or abscess formation. No pancreatic parenchymal lesion or ductal dilatation. 2. Significant wall thickening and enhancement involving the first and second portion of the duodenum with adjacent stranding, consistent with duodenitis reactive to adjacent pancreatitis. No evidence of bowel perforation. 3. Small amount of simple ascites. No organized fluid collection or abscess formation. No intra-abdominal free air. Fleischner guidelines were followed. Electronically signed by: Cory Fajardo MD 01/31/2024 12:14 PM [facility] [place] Workstation: [id number] Assessment and Plan (1) Alcoholic pancreatitis: Qualifiers: Acute pancreatitis complication: no infection or necrosis Chronicity: acute Qualified Code(s): K85.20 - Alcohol induced acute pancreatitis without necrosis or infection Status: Acute Plan Pt is a 38-year-old female with a PMH significant for?alcohol use disorder with hx of withdrawal, hx of alcoholic pancreatitis x3, and childhood seizure disorder w/last seizure over 20 years ago not on home meds who presents to the ED with?nausea, vomiting, abdominal pain x2 days. Pt will be admitted to the hospital for treatment further evaluation of acute pancreatitis. Acute alcoholic pancreatitis Patient with N/V and abdominal pain radiating to back x2 days CT showing acute pancreatitis with reactionary duodenitis, elevated lipase Hx of alcohol dependence drinking 10+ nips daily Will treat with IVF, IV analgesics, and bowel rest Alcohol cessation has been encouraged Addiction medicine consult Advance diet as tolerated Prolonged QTc QTc 568 at time of presentation Avoid QT-prolonging agents Will repeat EKG Pt supplemented with Mag sulfate, potassium Monitor on telemetry Follow lytes Hypertensive urgency BP has been as high as 179/113 Patient not on antihypertensives, only on clonidine p.r.n. for anxiety Will give labetalol 10 mg IV as she is not tolerating p.o. meds Monitor BP Leukocytosis WBC 17.2 at time of presentation Likely reactionary to N/V/acute pancreatitis No clear source of infection, CT negative for acute abdomen, no urinary or pulmonary symptoms No sepsis No indication for empiric antibiotics at this time Alcohol use disorder Patient tearful, anxious, mild upper extremity tremors Likely mild withdrawal Patient is started on phenobarb protocol, will continue CIWA Patient given IV thiamine and Protonix in the ED Multivitamin, folic acid, thiamine p.o. tomorrow if able to tolerate Follow lytes Addiction medicine consult Anxiety Continue buspirone, clonidine, hydroxyzine, mirtazapine when no longer NPO Full Code Attending:?Dr. Laws DVT Prophylaxis: Lovenox Pt will require a hospitalization of at least two nights for treatment of?acute alcoholic pancreatitis that required bowel rest, IVF, and IV medications including analgesics. Patient will also receive phenobarb protocol for alcohol withdrawal and close monitoring of electrolytes and cardiac function. Quality Stroke Does the patient have a stroke diagnosis?: No VTE Prior VTE?: No VTE Risk Level:: Medical - moderate - high VTE Device Contraindication: Treatment Not Indicated VTE Drug Contraindication: N/A - Med Ordered
[2024-01-31] MEDS: Pantoprazole Sodium 40 MG/10 ML VIAL IVPUSH (12:59)
[2024-01-31 13:25] LABS: Phosphorus 3.1 mg/dL (2.7-4.5)
[2024-01-31] MEDS: Labetalol HCL 100 MG/20 ML VIAL 10 MG IVPUSH (13:33)
[2024-01-31] MEDS: Enoxaparin Sodium 40 MG/0.4 ML SYRINGE SUBCUT (13:33)
[2024-01-31] MEDS: Nicotine 14 MG PATCH.TD24 TRANSDERMA (13:33)
--- NOTE | 2024-01-31 13:46 | PHA.MEDREC ---
Pharmacy Consult ? Medication Reconciliation Pharmacy has completed the medication reconciliation. Spoke to pt to confirm meds. Per patient, no longer taking B12. Takes clonidine BID scheduled.
[2024-01-31 14:04] LABS: Appearance Urine Clear; Color Urine Yellow; Glucose Urine UA >=1000 mg/dL (Negative); Leukocyte Esterase Urine Negative (Negative); Nitrite Urine Negative (Negative); PH 5.5 (5.0-9.0); Specific Gravity - Urine >= 1.030 (1.005-1.025); UMIC TRIGGER UACC YES; Urine Blood Large (3+) (Negative); Urine Ketones >=160 mg/dL (Negative); Urine Protein 30 (1+) mg/dL (Neg-Trace)
[2024-01-31 14:15] LABS: Amphetamine Screen Urine Not Detected (Not Detect); Anion Gap 15 (12-20); Barbiturates, Urine POSITIVE (Not Detect); Benzodiazepines Screen Urine Not Detected (Not Detect); Blood Urea Nitrogen 8 mg/dL (9-16); Buprenorphine Scr Not Detected (Not Detect); Calcium 8.3 mg/dL (8.4-10.2); Cannabinoid Screen Urine POSITIVE (Not Detect); Carbon Dioxide 17 mmol/L (22-29); Chloride 108 mmol/L (96-108); Cocaine Screen Urine Not Detected (Not Detect); Creatinine Clr Calc Pharmacy 128.8; Estimated Glomerular Filt Rate > 60; Fentanyl, urine Not Detected (Not Detect); Glucose Random 145 mg/dL (60-115); Methadone Screen, Urine Not Detected (Not Detect); Opiate Screen Urine POSITIVE (Not Detect); Oxycodone Screen Urine Not Detected (Not Detect); Phencyclidine Screen Urine Not Detected (Not Detect); Potassium 3.4 mmol/L (3.3-5.1); Sodium 137 mmol/L (135-145)
[2024-01-31 14:16] LABS: Bacteria Urine 2+ (None Seen); Hyaline Casts Urine 0-2 /LPF (0-2); RBC Urine 0-2 /HPF (0-2); WBC Urine 0-5 /HPF (0-5)
[2024-01-31] MEDS: Potassium Chloride/H20 10 MEQ/100 ML PIGGYBACK 100 MEQ IV ×4 (14:42→20:57)
[2024-01-31] MEDS: PHENobarbitaL sodium 130 MG/ML VIAL IM Q3Hx2 221 MG IM ×2 (14:43→17:16)
--- NOTE | 2024-01-31 17:03 | PC.NURSE ---
pt is alert and oriented, skin pwd, respirations even and unlabored, pt reports abd pain with mild nausea, pain at 9/10-reached out to dr lynch for additional pain medication because pt's morphine is ordered 4qh and is not do for next dose till 1829, ns on the monitor
[2024-01-31] MEDS: Morphine Sulfate 2 MG/ML CARTRIDGE IVPUSH (17:26)
[2024-01-31] MEDS: busPIRone HCl 5 MG TABLET 15 MG PO (19:35)
[2024-01-31] MEDS: Mirtazapine 15 MG TABLET PO (19:35)
[2024-01-31] MEDS: cloNIDine HCL 0.1 MG TABLET PO (19:35)
[2024-02-01] VITALS (9 sets, daily range): BP systolic 114–165; BP diastolic 78–105; PULSE 80–93; RESP 18–20; TEMP 36.2–37.1; O2SAT 98–100
[2024-02-01] MEDS: HYDROmorphone HCl 1 MG/ML SYRINGE IVPUSH ×6 (00:04→22:02)
[2024-02-01] MEDS: Acetaminophen 325 MG TABLET 650 MG PO ×3 (03:27→20:22)
--- NOTE | 2024-02-01 06:00 | ECG_ITS ---
Test Reason : Prolonged QT interval Blood Pressure : / mmHG Vent. Rate : 084 BPM Atrial Rate : 084 BPM P-R Int : 158 ms QRS Dur : 086 ms QT Int : 426 ms P-R-T Axes : 065 057 074 degrees QTc Int : 503 ms Normal sinus rhythm Prolonged QT Abnormal ECG When compared with ECG of 31-JAN-2024 13:47, No significant change was found Referred By: Gage He Electronically Signed By:NISHA IRVIN MD
[2024-02-01 07:23] LABS: Hematocrit 39.5 % (37.0-47.0); Hemoglobin 13.4 g/dl (12.0-16.0); Mean Corpuscular HGB Conc 33.9 g/dl (31.0-35.0); Mean Corpuscular Hemoglobin 31.1 pg (27.0-33.0); Mean Corpuscular Volume 91.6 fL (80.0-98.0); Platelet Count 144 X10*3/uL (160-400); Red Blood Count 4.31 X10*6/uL (4.20-5.50); Red Cell Distribution Width 12.5 % (11.0-16.0); White Blood Count 11.4 X10*3/uL (4.8-10.8)
[2024-02-01 07:30] LABS: Anion Gap 15 (12-20); Blood Urea Nitrogen 8 mg/dL (9-16); Calcium 8.6 mg/dL (8.4-10.2); Carbon Dioxide 17 mmol/L (22-29); Chloride 108 mmol/L (96-108); Creatinine Clr Calc Pharmacy 133.6; Estimated Glomerular Filt Rate > 60; Glucose Random 132 mg/dL (60-115); Potassium 3.9 mmol/L (3.3-5.1); Sodium 136 mmol/L (135-145)
[2024-02-01 08:18] LABS: Magnesium 2.1 mg/dL (1.6-2.6)
[2024-02-01] MEDS: busPIRone HCl 5 MG TABLET 15 MG PO ×2 (09:03→20:23)
[2024-02-01] MEDS: Thiamine HCL 100 MG TABLET PO (09:03)
[2024-02-01] MEDS: cloNIDine HCL 0.1 MG TABLET PO ×2 (09:03→20:23)
[2024-02-01] MEDS: Nicotine 14 MG PATCH.TD24 TRANSDERMA (09:04)
[2024-02-01] MEDS: Multivitamin TABLET 1 TAB PO (09:04)
[2024-02-01] MEDS: Potassium Chloride ER 20 MEQ TAB.ER.PRT PO (09:04)
[2024-02-01] MEDS: Folic Acid 1 MG TABLET PO (09:04)
[2024-02-01] MEDS: PHENobarbitaL 15 MG TABLET 45 MG PO ×2 (09:04→20:23)
[2024-02-01] MEDS: 0.9 % Sodium Chloride Flush 3 ML SYRINGE IVFLUSH (09:05)
[2024-02-01] MEDS: Lactated Ringers 1,000 ML 100 ML IVCONT ×2 (09:25→18:00)
[2024-02-01] MEDS: hydrOXYzine HCL 50 MG TABLET PO (09:29)
--- NOTE | 2024-02-01 09:33 | MHC.CM.PN ---
Pt. lives by herself, no home health services. PCP confirmed: Helen Woodson, HCP discussed, pt. declined to complete form. Transport home is self, her car is in lot. DCP: home, self care, CM will follow for DC needs.
--- NOTE | 2024-02-01 10:40 | P.PNIM_ITS ---
Subjective Subjective Date of Service: 02/01/24 Interval History: alcohol withdrawals hypokalemia Review of Systems has abd pain /nausea no vomiting alcohol wthdrawals improving Physical Exam 2 Vital Signs: Vital Signs: Last Vital Signs Temp 98.8 F 02/01/24 07:29 Pulse 82 02/01/24 07:29 Resp 20 02/01/24 07:29 BP 139/87 02/01/24 07:29 Pulse Ox 98 02/01/24 07:29 O2 Del Method Room Air 02/01/24 07:29 BMI result Body Mass Index 27.1 Appearance: Alert.? Oriented X3.? anxious cvs: rrr, [id number] , no murmur res: clear to auscultation ,no rhonchii or wheezing abd: no rebound or guarding ,abd pain left side improving, bs present. ext pulses present , no cyanosis . neuro: axo3 , nonfocal. Objective Data Active Medications Acetaminophen (Acetaminophen 325 Mg Tablet) 650 mg PO Q6H PRN PRN Reason: Pain, Mild (Pain Scale 1-3), fever or headache Last Admin: 02/01/24 09:13 Dose: 650 mg Documented By: MARCELO Benzonatate (Benzonatate 100 Mg Capsule) 100 mg PO TID PRN PRN Reason: Cough Buspirone HCl (Buspirone Hcl 5 Mg Tablet) 15 mg PO BID COUNT INCLUDES THE [facility] Last Admin: 02/01/24 09:03 Dose: 15 mg Documented By: MARCELO Calcium Carbonate (Calcium Carbonate 750 Mg Tab.Chew) 750 mg PO Q4H PRN PRN Reason: Heartburn Clonidine HCl (Clonidine Hcl 0.1 Mg Tablet) 0.1 mg PO BID COUNT INCLUDES THE [facility]; Protocol Last Admin: 02/01/24 09:03 Dose: 0.1 mg Documented By: MARCELO Diphenhydramine HCl (Diphenhydramine Hcl 50 Mg/Ml Vial) 25 mg IVPUSH Q6H PRN PRN Reason: Nausea and Vomiting Enoxaparin Sodium (Enoxaparin Sodium 40 Mg/0.4 Ml Syringe) 40 mg SUBCUT Q24H COUNT INCLUDES THE [facility] Last Admin: 01/31/24 13:33 Dose: 40 mg Documented By: ANKUR Folic Acid (Folic Acid 1 Mg Tablet) 1 mg PO DAILY COUNT INCLUDES THE [facility] Stop: 02/04/24 08:59 Last Admin: 02/01/24 09:04 Dose: 1 mg Documented By: MARCELO Hydromorphone HCl (Hydromorphone Hcl 1 Mg/Ml Syringe) 1 mg IVPUSH Q4H PRN; Protocol PRN Reason: Pain, Severe (Pain Scale 7-10) Last Admin: 02/01/24 09:05 Dose: 1 mg Documented By: MARCELO Hydroxyzine HCl (Hydroxyzine Hcl 50 Mg Tablet) 50 mg PO DAILY PRN PRN Reason: Anxiety Last Admin: 02/01/24 09:29 Dose: 50 mg Documented By: MARCELO Lactated Ringer's (Lr) 1,000 mls @ 100 mls/hr IVCONT .Q10H COUNT INCLUDES THE [facility] Last Admin: 02/01/24 09:25 Dose: 100 mls/hr Documented By: MARCELO Magnesium Hydroxide (Milk Of Magnesia 30 Ml Oral.Susp) 30 ml PO DAILY PRN PRN Reason: Constipation Mirtazapine (Mirtazapine 15 Mg Tablet) 15 mg PO BEDTIME COUNT INCLUDES THE [facility] Last Admin: 01/31/24 19:35 Dose: 15 mg Documented By: ROSS Multivitamins/Vitamin C (Multivitamin Tablet) 1 tab PO DAILY COUNT INCLUDES THE [facility] Stop: 02/04/24 08:59 Last Admin: 02/01/24 09:04 Dose: 1 tab Documented By: MARCELO Nicotine (Nicotine 14 Mg Patch.Td24) 14 mg TRANSDERMA DAILY COUNT INCLUDES THE [facility] Last Admin: 02/01/24 09:04 Dose: 14 mg Documented By: MARCELO Oxycodone HCl (Oxycodone Hcl Immed Release 5 Mg Tablet) 5 mg PO Q4H PRN PRN Reason: Pain, Moderate(Pain Scale 4-6) Pharmacy Consult (Consult Rx Etoh Phenob Im/Po) 1 each MISCELLANE ONCE PRN; Protocol PRN Reason: Consult order Phenobarbital (Phenobarbital 15 Mg Tablet) 45 mg PO BID COUNT INCLUDES THE [facility]; Protocol Stop: 02/02/24 21:01 Last Admin: 02/01/24 09:04 Dose: 45 mg Documented By: MARCELO Phenobarbital (Phenobarbital 15 Mg Tablet) 15 mg PO BID COUNT INCLUDES THE [facility]; Protocol Stop: 02/04/24 21:01 Phenobarbital (Phenobarbital 15 Mg Tablet) 15 mg PO DAILY COUNT INCLUDES THE [facility]; Protocol Stop: 02/06/24 09:01 Sodium Chloride (0.9 % Sodium Chloride Flush 3 Ml Syringe) 3 ml IVFLUSH QSHIFT COUNT INCLUDES THE [facility] Last Admin: 02/01/24 09:05 Dose: 3 ml Documented By: MARCELO Thiamine HCl (Thiamine Hcl 100 Mg Tablet) 100 mg PO DAILY COUNT INCLUDES THE [facility] Stop: 02/04/24 08:59 Last Admin: 02/01/24 09:03 Dose: 100 mg Documented By: MARCELO Labs 02/01/24 06:36 02/01/24 06:36 Labs: Laboratory Results - last 24 hr 01/31/24 01/31/24 02/01/24 09:48 13:56 06:36 MCV 91.6 MCH 31.1 MCHC 33.9 RDW 12.5 Plt Count 144 L MPV 9.0 L Absolute Nucleated RBC 0.000 Nucleated RBC % (auto) 0.0 Anion Gap 15 15 Estim Creat Clear Calc 128.8 133.6 Estimated GFR > 60 > 60 Random Glucose 145 H 132 H Calcium 8.3 L D 8.6 Phosphorus 3.1 Magnesium 2.1 Urine Color Yellow Urine Appearance Clear Urine pH 5.5 Ur Specific [place] >= 1.030 H Urine Protein 30 (1+) H Urine Glucose (UA) >=1000 H Urine Ketones >=160 Urine Blood Large (3+) H Urine Nitrite Negative Ur Leukocyte Esterase Negative Urine RBC 0-2 Urine WBC 0-5 Ur Squamous Epith Cells 3-5 Urine Bacteria 2+ Hyaline Casts 0-2 Urine Opiates Screen POSITIVE H Ur Buprenorphine Scrn Not Detected Ur Oxycodone Screen Not Detected Urine Methadone Screen Not Detected Urine Fentanyl Screen Not Detected Ur Barbiturates Screen POSITIVE H Ur Phencyclidine Scrn Not Detected Ur Amphetamines Screen Not Detected U Benzodiazepines Scrn Not Detected Urine Cocaine Screen Not Detected U Marijuana (THC) Screen POSITIVE H Assessment and Plan (1) Nausea & vomiting: Status: Acute (2) Prolonged QT interval: Status: Acute (3) Alcoholic pancreatitis: Status: Acute (4) Alcohol withdrawal: Status: Acute Plan 38-year-old female with a PMH significant for?alcohol use disorder with hx of withdrawal, hx of alcoholic pancreatitis x3, and childhood seizure disorder w/last seizure over 20 years ago not on home meds who presents to the ED with?nausea, vomiting, abdominal pain x2 days. Pt will be admitted to the hospital for treatment further evaluation of acute pancreatitis. Acute alcoholic pancreatitis abd somewhat simialr , Nauseated CT showing acute pancreatitis with reactionary duodenitis, elevated lipase. continue IVF, IV analgesics, and bowel rest Addiction medicine consult Advance diet as tolerated Prolonged QTc improving to 503 ms after electrolytic repletion moniter renal function/electrolytes. elevated bp likely due to alcohol withdrawal :improving on clonidine Leukocytosis-likely reactive improving WBC 17.2 at time of presentation Likely reactionary to N/V/acute pancreatitis No clear source of infection, CT negative for acute abdomen, no urinary or pulmonary symptoms Alcohol use disorder still anxious continue pheonobarbital protocol,Multivitamin, folic acid, thiamine p.o. tomorrow if able to tolerate Follow lytes Addiction medicine consult Anxiety Continue buspirone, clonidine, hydroxyzine, mirtazapine when no longer NPO Full Code DVT Prophylaxis: Lovenox ongoing need for hospitalization for treatment of?acute alcoholic pancreatitis that required bowel rest, IVF, and IV medications including analgesics. Patient will also receive phenobarb protocol for alcohol withdrawal and close monitoring of electrolytes and cardiac function. Quality Stroke Does the patient have a stroke diagnosis?: No VTE Prior VTE?: No VTE Risk Level:: Medical - moderate - high VTE Device Contraindication: Treatment Not Indicated VTE Drug Contraindication: N/A - Med Ordered
--- NOTE | 2024-02-01 13:27 | MHC.RECOVRN ---
AUDIT-C Brief Intervention Pt had positive screen for unhealthy alcohol use on admission, subsequently met with t/w to discuss alcohol use and recovery supports/options. This music writer met with patient to discuss current alcohol use and concerns related to increased risk of alcohol related problems.? Pt reports 10+ nips vodka daily x approximately 3 months. Discussed how alcohol use has impacted health, including negative impact on overall physical wellbeing, including pancreatitis. Pts goal is abstinence. Pt reports she began a new job one month ago, states It's a really good job with good benefits, I don't want to lose it. Withdrawal History: denies hx seizures Treatment History: 1 ATS/CSS admission at [place] (was there x 1 month), PHP in [place] x 2 months Has been hospitalized 5-6 times for pancreatitis. Supports:?family/friends Reports family hx AUD (father). Discussed risk reduction strategies including drinking below the recommended limit. Provided pt with written resources including information on inpatient and outpatient treatment, [place], harm reduction, and recovery coaching. Pt is interested in [place], has tried naltrexone in the past, would like to restart and receive Vivitrol. Pt has been to AA in the past. Pt plans to initiate care with the [facility] upon discharge and receive Vivitrol. Pt provided with t/w contact information if questions or concerns arise. Denies other questions or concerns at this time.?
[2024-02-01] MEDS: Enoxaparin Sodium 40 MG/0.4 ML SYRINGE SUBCUT (13:40)
[2024-02-01] MEDS: diphenhydrAMINE HCL 50 MG/ML VIAL 25 MG IVPUSH (13:46)
[2024-02-02] MEDS: HYDROmorphone HCl 1 MG/ML SYRINGE IVPUSH ×5 (02:13→20:55)
[2024-02-02] MEDS: Lactated Ringers 1,000 ML 100 ML IVCONT ×2 (04:04→14:16)
[2024-02-02] MEDS: hydrOXYzine HCL 50 MG TABLET PO (04:06)
[2024-02-02 07:20] VITALS: BP 138/90; PULSE 87; RESP 14; TEMP 37; O2SAT 98
[2024-02-02 08:00] LABS: Anion Gap 15 (12-20); Blood Urea Nitrogen 5 mg/dL (9-16); Calcium 8.6 mg/dL (8.4-10.2); Carbon Dioxide 17 mmol/L (22-29); Chloride 106 mmol/L (96-108); Estimated Glomerular Filt Rate > 60; Glucose Random 120 mg/dL (60-115); Potassium 3.6 mmol/L (3.3-5.1); Sodium 134 mmol/L (135-145)
[2024-02-02] MEDS: Nicotine 14 MG PATCH.TD24 TRANSDERMA (08:07)
[2024-02-02] MEDS: Multivitamin TABLET 1 TAB PO (08:08)
[2024-02-02] MEDS: PHENobarbitaL 15 MG TABLET 45 MG PO ×2 (08:08→20:55)
[2024-02-02] MEDS: busPIRone HCl 5 MG TABLET 15 MG PO ×2 (08:08→20:54)
[2024-02-02] MEDS: Thiamine HCL 100 MG TABLET PO (08:08)
[2024-02-02] MEDS: Folic Acid 1 MG TABLET PO (08:08)
[2024-02-02] MEDS: cloNIDine HCL 0.1 MG TABLET PO ×2 (08:08→20:54)
[2024-02-02] MEDS: Acetaminophen 325 MG TABLET 650 MG PO ×2 (08:11→19:19)
[2024-02-02] MEDS: Pantoprazole Sodium 40 MG/10 ML VIAL IVPUSH ×2 (09:41→16:42)
[2024-02-02] MEDS: Docusate Sodium 100 MG/10 ML LIQUID PO ×2 (09:41→20:55)
[2024-02-02] MEDS: Enoxaparin Sodium 40 MG/0.4 ML SYRINGE SUBCUT (11:59)
[2024-02-02] MEDS: diphenhydrAMINE HCL 50 MG/ML VIAL 25 MG IVPUSH (11:59)
[2024-02-02] MEDS: Potassium Chloride ER 20 MEQ TAB.ER.PRT 40 MEQ PO (11:59)
--- NOTE | 2024-02-02 13:50 | HO.PM.IMPN ---
Subjective Subjective Date of Service: 02/02/24 Interval History: Acute pancreatitis, alcohol withdrawal Review of Systems Patient is still complaining of significant pain meanwhile also has some nausea strongly encouraged try her to eat Physical Exam Vital Signs: Vital Signs: Last Vital Signs Temp 98.6 F 02/02/24 07:20 Pulse 87 02/02/24 07:20 Resp 14 02/02/24 07:20 BP 138/90 H 02/02/24 07:20 Pulse Ox 98 02/02/24 07:20 O2 Del Method Room Air 02/02/24 07:20 BMI result Body Mass Index 27.1 Appearance: Alert.? Oriented X3.? anxious cvs: rrr, [id number] , no murmur res: clear to auscultation ,no rhonchii or wheezing abd: no rebound or guarding ,abd pain left side improving, bs present. ext pulses present , no cyanosis . neuro: axo3 , nonfocal Objective Data Active Medications Acetaminophen (Acetaminophen 325 Mg Tablet) 650 mg PO Q6H PRN PRN Reason: Pain, Mild (Pain Scale 1-3), fever or headache Last Admin: 02/02/24 08:11 Dose: 650 mg Documented By: MARCELO Benzonatate (Benzonatate 100 Mg Capsule) 100 mg PO TID PRN PRN Reason: Cough Buspirone HCl (Buspirone Hcl 5 Mg Tablet) 15 mg PO BID [facility] Last Admin: 02/02/24 08:08 Dose: 15 mg Documented By: MARCELO Calcium Carbonate (Calcium Carbonate 750 Mg Tab.Chew) 750 mg PO Q4H PRN PRN Reason: Heartburn Clonidine HCl (Clonidine Hcl 0.1 Mg Tablet) 0.1 mg PO BID [facility]; Protocol Last Admin: 02/02/24 08:08 Dose: 0.1 mg Documented By: MARCELO Diphenhydramine HCl (Diphenhydramine Hcl 50 Mg/Ml Vial) 25 mg IVPUSH Q6H PRN PRN Reason: Nausea and Vomiting Last Admin: 02/02/24 11:59 Dose: 25 mg Documented By: MARCELO Docusate Sodium (Docusate Sodium 100 Mg/10 Ml Liquid) 100 mg PO BID [facility] Last Admin: 02/02/24 09:41 Dose: 100 mg Documented By: MARCELO Enoxaparin Sodium (Enoxaparin Sodium 40 Mg/0.4 Ml Syringe) 40 mg SUBCUT Q24H [facility] Last Admin: 02/02/24 11:59 Dose: 40 mg Documented By: MARCELO Folic Acid (Folic Acid 1 Mg Tablet) 1 mg PO DAILY [facility] Stop: 02/04/24 08:59 Last Admin: 02/02/24 08:08 Dose: 1 mg Documented By: MARCELO Hydromorphone HCl (Hydromorphone Hcl 1 Mg/Ml Syringe) 1 mg IVPUSH Q4H PRN; Protocol PRN Reason: Pain, Severe (Pain Scale 7-10) Last Admin: 02/02/24 12:00 Dose: 1 mg Documented By: MARCELO Hydroxyzine HCl (Hydroxyzine Hcl 50 Mg Tablet) 50 mg PO DAILY PRN PRN Reason: Anxiety Last Admin: 02/02/24 04:06 Dose: 50 mg Documented By: SKY Lactated Ringer's (Lr) 1,000 mls @ 100 mls/hr IVCONT .Q10H [facility] Last Admin: 02/02/24 04:04 Dose: 100 mls/hr Documented By: SKY Magnesium Hydroxide (Milk Of Magnesia 30 Ml Oral.Susp) 30 ml PO DAILY PRN PRN Reason: Constipation Mirtazapine (Mirtazapine 15 Mg Tablet) 15 mg PO BEDTIME [facility] Last Admin: 01/31/24 19:35 Dose: 15 mg Documented By: ROSS Multivitamins/Vitamin C (Multivitamin Tablet) 1 tab PO DAILY [facility] Stop: 02/04/24 08:59 Last Admin: 02/02/24 08:08 Dose: 1 tab Documented By: MARCELO Nicotine (Nicotine 14 Mg Patch.Td24) 14 mg TRANSDERMA DAILY [facility] Last Admin: 02/02/24 08:07 Dose: 14 mg Documented By: MARCELO Oxycodone HCl (Oxycodone Hcl Immed Release 5 Mg Tablet) 5 mg PO Q4H PRN PRN Reason: Pain, Moderate(Pain Scale 4-6) Pantoprazole Sodium (Pantoprazole Sodium 40 Mg/10 Ml Vial) 40 mg IVPUSH BID@0630,1630 [facility] Last Admin: 02/02/24 09:41 Dose: 40 mg Documented By: MARCELO Pharmacy Consult (Consult Rx Etoh Phenob Im/Po) 1 each MISCELLANE ONCE PRN; Protocol PRN Reason: Consult order Phenobarbital (Phenobarbital 15 Mg Tablet) 45 mg PO BID [facility]; Protocol Stop: 02/02/24 21:01 Last Admin: 02/02/24 08:08 Dose: 45 mg Documented By: MARCELO Phenobarbital (Phenobarbital 15 Mg Tablet) 15 mg PO BID [facility]; Protocol Stop: 02/04/24 21:01 Phenobarbital (Phenobarbital 15 Mg Tablet) 15 mg PO DAILY [facility]; Protocol Stop: 02/06/24 09:01 Polyethylene Glycol (Polyethylene Glycol 3350 17 Gm Powd.Pack) 17 gm PO DAILY [facility] Sodium Chloride (0.9 % Sodium Chloride Flush 3 Ml Syringe) 3 ml IVFLUSH QSHIFT [facility] Last Admin: 02/02/24 08:08 Dose: Not Given Documented By: MARCELO Non-Admin Reason: IV Running Thiamine HCl (Thiamine Hcl 100 Mg Tablet) 100 mg PO DAILY [facility] Stop: 02/04/24 08:59 Last Admin: 02/02/24 08:08 Dose: 100 mg Documented By: MARCELO Labs 02/01/24 06:36 02/02/24 07:30 Labs: Laboratory Results - last 24 hr 02/02/24 07:30 Anion Gap 15 Estim Creat Clear Calc 151.0 Estimated GFR > 60 Random Glucose 120 H Calcium 8.6 Assessment and Plan (1) Nausea & vomiting: Status: Acute (2) Prolonged QT interval: Status: Acute (3) Alcoholic pancreatitis: Status: Acute (4) Alcohol withdrawal: Status: Acute Plan 38-year-old female with a PMH significant for?alcohol use disorder with hx of withdrawal, hx of alcoholic pancreatitis x3, and childhood seizure disorder w/last seizure over 20 years ago not on home meds who presents to the ED with?nausea, vomiting, abdominal pain x2 days. Pt will be admitted to the hospital for treatment further evaluation of acute pancreatitis. Acute alcoholic pancreatitis abd somewhat simialr , Nauseated CT showing acute pancreatitis with reactionary duodenitis, elevated lipase. continue IVF, IV analgesics, and bowel rest Addiction medicine consult Advance diet as tolerated Prolonged QTc improving to 503 ms after electrolytic repletion moniter renal function/electrolytes. elevated bp likely due to alcohol withdrawal :improving on clonidine Leukocytosis-likely reactive improving WBC 17.2 at time of presentation Likely reactionary to N/V/acute pancreatitis No clear source of infection, CT negative for acute abdomen, no urinary or pulmonary symptoms Alcohol use disorder still anxious continue pheonobarbital protocol,Multivitamin, folic acid, thiamine p.o. tomorrow if able to tolerate Follow lytes Addiction medicine consult Anxiety Continue buspirone, clonidine, hydroxyzine, mirtazapine when no longer NPO Full Code DVT Prophylaxis: Lovenox ongoing need for hospitalization for treatment of?acute alcoholic pancreatitis that required bowel rest, IVF, and IV medications including analgesics. Patient will also receive phenobarb protocol for alcohol withdrawal and close monitoring of electrolytes and cardiac function. Quality Stroke Does the patient have a stroke diagnosis?: No VTE Prior VTE?: No VTE Risk Level:: Medical - moderate - high VTE Device Contraindication: Treatment Not Indicated VTE Drug Contraindication: N/A - Med Ordered
--- NOTE | 2024-02-02 14:00 | MHC.RECOVRN ---
Met with pt to follow up and provide support. Provided pt with [facility] appt--02/14 at 1PM telehealth. Pt denies other questions or concerns at this time.
[2024-02-02 15:09] VITALS: BP 137/85; PULSE 80; RESP 16; TEMP 36.5; O2SAT 99
[2024-02-02] MEDS: 0.9 % Sodium Chloride Flush 3 ML SYRINGE IVFLUSH ×3 (16:44→20:56)
[2024-02-02 19:21] VITALS: BP 163/99; PULSE 82; RESP 18; TEMP 36.8; O2SAT 98
[2024-02-03] MEDS: Lactated Ringers 1,000 ML 100 ML IVCONT ×3 (00:36→21:57)
[2024-02-03] MEDS: HYDROmorphone HCl 1 MG/ML SYRINGE IVPUSH ×5 (01:15→20:42)
[2024-02-03 03:42] VITALS: BP 132/87; PULSE 79; RESP 18; TEMP 36.4; O2SAT 97
[2024-02-03] MEDS: Acetaminophen 325 MG TABLET 650 MG PO (03:54)
[2024-02-03] MEDS: Pantoprazole Sodium 40 MG/10 ML VIAL IVPUSH ×2 (05:54→16:22)
[2024-02-03 08:00] VITALS: BP 143/86; PULSE 96; RESP 16; TEMP 36.7; O2SAT 98
[2024-02-03 08:14] LABS: Hematocrit 34.9 % (37.0-47.0); Hemoglobin 12.2 g/dl (12.0-16.0); Mean Corpuscular Hemoglobin 31.2 pg (27.0-33.0); Mean Corpuscular Volume 89.3 fL (80.0-98.0); Platelet Count 162 X10*3/uL (160-400); Red Blood Count 3.91 X10*6/uL (4.20-5.50); Red Cell Distribution Width 12.3 % (11.0-16.0); White Blood Count 7.2 X10*3/uL (4.8-10.8)
[2024-02-03 08:25] LABS: Alanine Aminotransferase 16 U/L (0-31); Albumin Level 3.2 g/dL (3.5-5.0); Alkaline Phosphatase 66 U/L (39-117); Anion Gap 12 (12-20); Aspartate Amino Transferase 31 U/L (5-31); Bilirubin Total 0.5 mg/dL (0.0-1.0); Blood Urea Nitrogen 4 mg/dL (9-16); Calcium 8.4 mg/dL (8.4-10.2); Carbon Dioxide 21 mmol/L (22-29); Chloride 105 mmol/L (96-108); Estimated Glomerular Filt Rate > 60; Glucose Random 124 mg/dL (60-115); Magnesium 1.7 mg/dL (1.6-2.6); Potassium 3.7 mmol/L (3.3-5.1); Sodium 134 mmol/L (135-145); Total Protein 5.6 g/dL (6.5-8.0)
[2024-02-03] MEDS: polyethylene glycoL 3350 17 GM POWD.PACK PO (08:58)
[2024-02-03] MEDS: Docusate Sodium 100 MG/10 ML LIQUID PO ×2 (08:59→20:42)
[2024-02-03] MEDS: busPIRone HCl 5 MG TABLET 15 MG PO ×2 (08:59→20:42)
[2024-02-03] MEDS: Multivitamin TABLET 1 TAB PO (09:00)
[2024-02-03] MEDS: cloNIDine HCL 0.1 MG TABLET PO ×2 (09:00→20:42)
[2024-02-03] MEDS: Folic Acid 1 MG TABLET PO (09:00)
[2024-02-03] MEDS: PHENobarbitaL 15 MG TABLET PO ×2 (09:00→20:42)
[2024-02-03] MEDS: Thiamine HCL 100 MG TABLET PO (09:00)
[2024-02-03] MEDS: Nicotine 14 MG PATCH.TD24 TRANSDERMA (09:02)
[2024-02-03] MEDS: 0.9 % Sodium Chloride Flush 3 ML SYRINGE IVFLUSH ×2 (09:03→16:26)
--- NOTE | 2024-02-03 13:02 | MHC.CM.PN ---
Per MD rounds patient not medically cleared for dc. CM will continue to follow.
[2024-02-03] MEDS: hydrOXYzine HCL 50 MG TABLET PO (13:18)
[2024-02-03] MEDS: Enoxaparin Sodium 40 MG/0.4 ML SYRINGE SUBCUT (14:02)
--- NOTE | 2024-02-03 14:19 | P.PNIM_ITS ---
Subjective Subjective Date of Service: 02/03/24 Interval History: moderate abd pain N/V this am but then able to tolerate liquids Review of Systems Review of Systems: Yes all other systems are reviewed and are negative Physical Exam 2 Vital Signs: Vital Signs: Last Vital Signs Temp 98.0 F 02/03/24 08:00 Pulse 96 02/03/24 08:00 Resp 16 02/03/24 08:00 BP 143/86 H 02/03/24 08:00 Pulse Ox 98 02/03/24 08:00 O2 Del Method Room Air 02/03/24 08:00 BMI result Body Mass Index 27.1 Gen: in no acute distress HEENT: sclera anicteric, moist mucus membranes Neck: supple Lungs: clear to auscultation bilaterally Heart: regular rate and rhythm, no murmurs Abd: soft, epigastric tenderness, non-distended Ext: no edema Skin: warm/well-perfused Neuro: alert and oriented x3, no focal findings Psych: appropriate affect Objective Data Active Medications Acetaminophen (Acetaminophen 325 Mg Tablet) 650 mg PO Q6H PRN PRN Reason: Pain, Mild (Pain Scale 1-3), fever or headache Last Admin: 02/03/24 03:54 Dose: 650 mg Documented By: LYSValentina Benzonatate (Benzonatate 100 Mg Capsule) 100 mg PO TID PRN PRN Reason: Cough Buspirone HCl (Buspirone Hcl 5 Mg Tablet) 15 mg PO BID [facility] Last Admin: 02/03/24 08:59 Dose: 15 mg Documented By: LEONIE Calcium Carbonate (Calcium Carbonate 750 Mg Tab.Chew) 750 mg PO Q4H PRN PRN Reason: Heartburn Clonidine HCl (Clonidine Hcl 0.1 Mg Tablet) 0.1 mg PO BID [facility]; Protocol Last Admin: 02/03/24 09:00 Dose: 0.1 mg Documented By: LEONIE Diphenhydramine HCl (Diphenhydramine Hcl 50 Mg/Ml Vial) 25 mg IVPUSH Q6H PRN PRN Reason: Nausea and Vomiting Last Admin: 02/02/24 11:59 Dose: 25 mg Documented By: LESSARL Docusate Sodium (Docusate Sodium 100 Mg/10 Ml Liquid) 100 mg PO BID [facility] Last Admin: 02/03/24 08:59 Dose: 100 mg Documented By: LEONIE Enoxaparin Sodium (Enoxaparin Sodium 40 Mg/0.4 Ml Syringe) 40 mg SUBCUT Q24H [facility] Last Admin: 02/03/24 14:02 Dose: 40 mg Documented By: LEONIE Folic Acid (Folic Acid 1 Mg Tablet) 1 mg PO DAILY [facility] Stop: 02/04/24 08:59 Last Admin: 02/03/24 09:00 Dose: 1 mg Documented By: LEONIE Hydromorphone HCl (Hydromorphone Hcl 1 Mg/Ml Syringe) 1 mg IVPUSH Q4H PRN; Protocol PRN Reason: Pain, Severe (Pain Scale 7-10) Last Admin: 02/03/24 11:35 Dose: 1 mg Documented By: LEONIE Hydroxyzine HCl (Hydroxyzine Hcl 50 Mg Tablet) 50 mg PO DAILY PRN PRN Reason: Anxiety Last Admin: 02/03/24 13:18 Dose: 50 mg Documented By: LEONIE Lactated Ringer's (Lr) 1,000 mls @ 100 mls/hr IVCONT .Q10H [facility] Last Admin: 02/03/24 11:33 Dose: 100 mls/hr Documented By: LEONIE Magnesium Hydroxide (Milk Of Magnesia 30 Ml Oral.Susp) 30 ml PO DAILY PRN PRN Reason: Constipation Mirtazapine (Mirtazapine 15 Mg Tablet) 15 mg PO BEDTIME [facility] Last Admin: 01/31/24 19:35 Dose: 15 mg Documented By: ROSS Multivitamins/Vitamin C (Multivitamin Tablet) 1 tab PO DAILY [facility] Stop: 02/04/24 08:59 Last Admin: 02/03/24 09:00 Dose: 1 tab Documented By: LEONIE Nicotine (Nicotine 14 Mg Patch.Td24) 14 mg TRANSDERMA DAILY [facility] Last Admin: 02/03/24 09:02 Dose: 14 mg Documented By: LEONIE Oxycodone HCl (Oxycodone Hcl Immed Release 5 Mg Tablet) 5 mg PO Q4H PRN PRN Reason: Pain, Moderate(Pain Scale 4-6) Pantoprazole Sodium (Pantoprazole Sodium 40 Mg/10 Ml Vial) 40 mg IVPUSH BID@0630,1630 [facility] Last Admin: 02/03/24 05:54 Dose: 40 mg Documented By: JESSICA Pharmacy Consult (Consult Rx Etoh Phenob Im/Po) 1 each MISCELLANE ONCE PRN; Protocol PRN Reason: Consult order Phenobarbital (Phenobarbital 15 Mg Tablet) 15 mg PO BID [facility]; Protocol Stop: 02/04/24 21:01 Last Admin: 02/03/24 09:00 Dose: 15 mg Documented By: LEONIE Phenobarbital (Phenobarbital 15 Mg Tablet) 15 mg PO DAILY [facility]; Protocol Stop: 02/06/24 09:01 Polyethylene Glycol (Polyethylene Glycol 3350 17 Gm Powd.Pack) 17 gm PO DAILY [facility] Last Admin: 02/03/24 08:58 Dose: 17 gm Documented By: LEONIE Sodium Chloride (0.9 % Sodium Chloride Flush 3 Ml Syringe) 3 ml IVFLUSH QSHIFT [facility] Last Admin: 02/03/24 09:03 Dose: 3 ml Documented By: LEONIE Thiamine HCl (Thiamine Hcl 100 Mg Tablet) 100 mg PO DAILY [facility] Stop: 02/04/24 08:59 Last Admin: 02/03/24 09:00 Dose: 100 mg Documented By: LEONIE Labs 02/03/24 07:45 02/03/24 07:45 Labs: Laboratory Results - last 24 hr 02/03/24 07:45 MCV 89.3 MCH 31.2 MCHC 35.0 RDW 12.3 Plt Count 162 MPV 9.0 L Absolute Nucleated RBC 0.000 Nucleated RBC % (auto) 0.0 Anion Gap 12 Estim Creat Clear Calc 151.0 Estimated GFR > 60 Random Glucose 124 H Calcium 8.4 Magnesium 1.7 Total Bilirubin 0.5 AST 31 ALT 16 Alkaline Phosphatase 66 Total Protein 5.6 L Albumin 3.2 L Assessment and Plan (1) Nausea & vomiting: Status: Acute (2) Prolonged QT interval: Status: Acute (3) Alcoholic pancreatitis: Status: Acute (4) Alcohol withdrawal: Status: Acute Plan d4 for 38yo F with AUD with hx withdrawal, hx EtOH pancreatitis x 3 episodes, childhoood epilepsy but seizure-free for 20 yr presenting with 2d of N/V, admitted for acute EtOH pancreatitis acute EtOH pancreatitis - IV fluids, full liquid diet, prn oxycodone + hydromorphone QTc prolongation - QTc now 503 ms after electrolyte repletion AUD with withdrawal - phenobarbital taper - continue folate, thiamine - met Recovery Team, has CCC f/u 02/14 13:00 mood disorder - continue buspirone, clonidine, hydroxyzine [watch QTc], and mirtazapine VTE ppx - enoxaparin dispo - eventual home In my clinical judgment, the patient requires continued inpatient hospitalization for the following reasons: phenobarbital taper, pancreatitis not on solids yet Total time managing care of this patient today: 35 minutes. Quality Stroke Does the patient have a stroke diagnosis?: No VTE Prior VTE?: No VTE Risk Level:: Medical - moderate - high VTE Device Contraindication: Treatment Not Indicated VTE Drug Contraindication: N/A - Med Ordered
[2024-02-03 15:26] VITALS: BP 155/75; PULSE 77; RESP 16; TEMP 37.2; O2SAT 98
[2024-02-03 19:15] VITALS: BP 148/85; PULSE 80; RESP 18; TEMP 36.5; O2SAT 98
[2024-02-04] MEDS: HYDROmorphone HCl 1 MG/ML SYRINGE IVPUSH ×3 (00:48→10:28)
[2024-02-04 03:19] VITALS: BP 138/84; PULSE 74; RESP 18; TEMP 36.1; O2SAT 95
[2024-02-04] MEDS: Pantoprazole Sodium 40 MG/10 ML VIAL IVPUSH (06:07)
[2024-02-04 07:36] VITALS: BP 158/92; PULSE 73; RESP 18; TEMP 36.6; O2SAT 95
[2024-02-04] MEDS: Lactated Ringers 1,000 ML 100 ML IVCONT (09:00)
[2024-02-04 09:01] VITALS: BP 158/72
[2024-02-04] MEDS: polyethylene glycoL 3350 17 GM POWD.PACK PO (09:01)
[2024-02-04] MEDS: Docusate Sodium 100 MG/10 ML LIQUID PO (09:01)
[2024-02-04] MEDS: cloNIDine HCL 0.1 MG TABLET PO (09:01)
[2024-02-04] MEDS: busPIRone HCl 5 MG TABLET 15 MG PO (09:01)
[2024-02-04] MEDS: PHENobarbitaL 15 MG TABLET PO (09:02)
[2024-02-04] MEDS: Nicotine 14 MG PATCH.TD24 TRANSDERMA (09:03)
--- NOTE | 2024-02-04 10:05 | MHC.RECOVSUP ---
pt and I ([employer] Installer) had 30 min chat about AUD and pathways to recovery pt claims to be committed to doing things differently this time around to not end up back in ED pt filled out [facility] referral for which will be emailed to Boni Augustin at [facility].
--- NOTE | 2024-02-04 13:57 | P.DS_ITS ---
DS: Providers Provider Date of Service: 02/04/24 Date of admission: 01/31/24 13:04 Date of discharge: 02/04/24 Primary care physician: Helen Woodson NP Consults: 01/31/24 13:08 Addiction Medicine Routine Consulting Provider: Addiction Covering Reason for consultation: Alcohol use disorder, acute pancreatitis DS: Diagnosis Discharge Diagnosis (1) Prolonged QT interval: Status: Acute (2) Alcoholic pancreatitis: Status: Acute (3) Alcohol withdrawal: Status: Acute (4) Alcohol use disorder: Status: Acute DS: Summary Hospital Course Hospital Course: From the history and physical by the admitting hospitalist, ANN Navarrete, 01/31/24: Pt is a 38-year-old female with a PMH significant for?alcohol use disorder with hx of withdrawal, hx of alcoholic pancreatitis x3, and childhood seizure disorder w/last seizure over 20 years ago not on home meds who presents to the ED with?nausea, vomiting, abdominal pain x2 days. Patient reports symptoms began late Thursday night when she was awoken from sleep with intractable nausea and vomiting. Abdominal pain was like a band around upper abdomen wrapping around to her back, similar to previous episodes of pancreatitis. Patient reports has been drinking 10+ nips of vodka daily for a long time with last drink yesterday. No fever, though subjective chills. No cough or shortness of breath. Denies polyuria or dysuria. In the ED pt was tachycardic up to 108 and was hypertensive at 179/113. Labs were significant for leukocytosis of 17.2, lipase 958, and mild transaminitis of AST 40 and ALT 45. Ethyl alcohol levels undetectable. CT of abdomen and pelvis with findings consistent with acute pancreatitis and duodenitis likely reactive. No abscess, parenchymal lesion, or ductal dilation. EKG demonstrated sinus tachycardia of 110 with prolonged QTc of 568. Pt was treated with IVF, morphine, thiamine, Mag sulfate, Ativan, hydromorphone, and started on phenobarb protocol. Pt will be admitted to the hospital for treatment further evaluation of acute pancreatitis. 38yo F with AUD with hx withdrawal, hx EtOH pancreatitis x 3 episodes, childhoood epilepsy but seizure-free for 20 yr presenting with 2d of N/V, admitted to the medical-surgical unit for acute EtOH pancreatitis. She was treated with bowel rest, IV fluids, and opioids. For EtOH withdrawal, she was treated with phenobarbital taper. She met with the Addiction Medicine team and outpatient follow-up was arranged. QTc prologned to 568 ms but improved to 503 ms after stopping hydroxyzine and repleting electrolytes. Her diet was advanced and pain improved. She was discharged home with instructions to follow up with Primary Care and Addiciton Medicine. Time Attestation Discharge Coordination Time (in mins): 40 Quality: Safe Use of Opioids Does Pt have an Active Cancer Diagnosis on the Problem List?: No Quality: Stroke Does the patient have a stroke diagnosis?: No Physical Exam Vital Signs: Vital Signs: Last Vital Signs Temp 97.9 F 02/04/24 07:36 Pulse 73 02/04/24 07:36 Resp 18 02/04/24 07:36 BP 158/72 H 02/04/24 09:01 Pulse Ox 95 02/04/24 07:36 O2 Del Method Room Air 02/04/24 07:36 BMI result Body Mass Index 27.1 Gen: in no acute distress HEENT: sclera anicteric, moist mucus membranes Neck: supple Lungs: clear to auscultation bilaterally Heart: regular rate and rhythm, no murmurs Abd: soft, non-tender, non-distended Ext: no edema Skin: warm/well-perfused Neuro: alert and oriented x3, no focal findings Psych: appropriate affect DS: Data Data Completed and Pending Completed studies during hospitalization [Text1]: Laboratory Results WBC 7.2 X10*3/uL (4.8-10.8) 02/03/24 07:45 RBC 3.91 X10*6/uL (4.20-5.50) L 02/03/24 07:45 Hgb 12.2 g/dl (12.0-16.0) 02/03/24 07:45 Hct 34.9 % (37.0-47.0) L 02/03/24 07:45 MCV 89.3 fL (80.0-98.0) 02/03/24 07:45 MCH 31.2 pg (27.0-33.0) 02/03/24 07:45 MCHC 35.0 g/dl (31.0-35.0) 02/03/24 07:45 RDW 12.3 % (11.0-16.0) 02/03/24 07:45 Plt Count 162 X10*3/uL (160-400) 02/03/24 07:45 MPV 9.0 fL (9.4-12.3) L 02/03/24 07:45 Immature Gran % (Auto) 1.2 % (0.0-0.4) H 01/31/24 09:48 Neut % (Auto) 84.8 % (45-73) H 01/31/24 09:48 Lymph % (Auto) 7.2 % (20-40) L 01/31/24 09:48 [place] % (Auto) 5.7 % (2-11) 01/31/24 09:48 Eos % (Auto) 0.7 % (0-4) 01/31/24 09:48 Baso % (Auto) 0.4 % (0-2) 01/31/24 09:48 Lymph # (Auto) 1.2 X10*3/uL (1.2-4.9) 01/31/24 09:48 [place] # (Auto) 1.0 X10*3/uL (0.1-1.2) 01/31/24 09:48 Eos # (Auto) 0.1 X10*3/uL (0.0-0.4) 01/31/24 09:48 Baso # (Auto) 0.1 X10*3/uL (0.0-0.2) 01/31/24 09:48 Abs Immat Gran (auto) 0.20 X10*3/uL (0.00-0.03) H 01/31/24 09:48 Absolute Neuts (auto) 14.6 x10*3/uL (2.0-8.3) H 01/31/24 09:48 Absolute Nucleated RBC 0.000 X10*3/uL (0.0-0.012) 02/03/24 07:45 Nucleated RBC % (auto) 0.0 /100WBC (0.0-0.2) 02/03/24 07:45 aPTT Heparin Protocol 28.9 SEC (53-77.9) L 01/31/24 09:48 Sodium 134 mmol/L (135-145) L 02/03/24 07:45 Potassium 3.7 mmol/L (3.3-5.1) 02/03/24 07:45 Chloride 105 mmol/L (96-108) 02/03/24 07:45 Carbon Dioxide 21 mmol/L (22-29) L 02/03/24 07:45 Anion Gap 12 (12-20) 02/03/24 07:45 BUN 4 mg/dL (9-16) L 02/03/24 07:45 Creatinine 0.54 mg/dL (0.5-1.4) 02/03/24 07:45 Estim Creat Clear Calc 151.0 02/03/24 07:45 Estimated GFR > 60 02/03/24 07:45 Random Glucose 124 mg/dL (60-115) H 02/03/24 07:45 Calcium 8.4 mg/dL (8.4-10.2) 02/03/24 07:45 Phosphorus 3.1 mg/dL (2.7-4.5) 01/31/24 09:48 Magnesium 1.7 mg/dL (1.6-2.6) 02/03/24 07:45 Total Bilirubin 0.5 mg/dL (0.0-1.0) 02/03/24 07:45 Direct Bilirubin 0.4 mg/dL (0.0-0.5) 01/31/24 09:48 AST 31 U/L (5-31) 02/03/24 07:45 ALT 16 U/L (0-31) 02/03/24 07:45 Alkaline Phosphatase 66 U/L (39-117) 02/03/24 07:45 Lactate Dehydrogenase 239 U/L (122-220) H 01/31/24 09:48 Troponin I High Sens < 2.7 ng/L (<3.5-17.0) 01/31/24 09:48 Total Protein 5.6 g/dL (6.5-8.0) L 02/03/24 07:45 Albumin 3.2 g/dL (3.5-5.0) L 02/03/24 07:45 Lipase 958 U/L (8-78) H 01/31/24 09:48 Beta HCG, Quant < 2 mIU/mL 01/31/24 09:48 Urine Color Yellow 01/31/24 13:56 Urine Appearance Clear 01/31/24 13:56 Urine pH 5.5 (5.0-9.0) 01/31/24 13:56 Ur Specific [place] >= 1.030 (1.005-1.025) H 01/31/24 13:56 Urine Protein 30 (1+) mg/dL (Neg-Trace) H 01/31/24 13:56 Urine Glucose (UA) >=1000 mg/dL (Negative) H 01/31/24 13:56 Urine Ketones >=160 mg/dL (Negative) 01/31/24 13:56 Urine Blood Large (3+) (Negative) H 01/31/24 13:56 Urine Nitrite Negative (Negative) 01/31/24 13:56 Ur Leukocyte Esterase Negative (Negative) 01/31/24 13:56 Urine RBC 0-2 /HPF (0-2) 01/31/24 13:56 Urine WBC 0-5 /HPF (0-5) 01/31/24 13:56 Ur Squamous Epith Cells 3-5 /HPF (0-2) 01/31/24 13:56 Urine Bacteria 2+ (None Seen) 01/31/24 13:56 Hyaline Casts 0-2 /LPF (0-2) 01/31/24 13:56 Urine Opiates Screen POSITIVE (Not Detect) H 01/31/24 13:56 Ur Buprenorphine Scrn Not Detected ng/mL (Not Detect) 01/31/24 13:56 Ur Oxycodone Screen Not Detected ng/mL (Not Detect) 01/31/24 13:56 Urine Methadone Screen Not Detected ng/mL (Not Detect) 01/31/24 13:56 Urine Fentanyl Screen Not Detected (Not Detect) 01/31/24 13:56 Ur Barbiturates Screen POSITIVE (Not Detect) H 01/31/24 13:56 Ur Phencyclidine Scrn Not Detected (Not Detect) 01/31/24 13:56 Ur Amphetamines Screen Not Detected (Not Detect) 01/31/24 13:56 U Benzodiazepines Scrn Not Detected (Not Detect) 01/31/24 13:56 Urine Cocaine Screen Not Detected (Not Detect) 01/31/24 13:56 U Marijuana (THC) Screen POSITIVE (Not Detect) H 01/31/24 13:56 Ethyl Alcohol < 10 mg/dL 01/31/24 09:48 Influenza Type A (PCR) NEGATIVE (Negative) 01/31/24 09:48 Influenza Type B (PCR) NEGATIVE (Negative) 01/31/24 09:48 RSV RNA Qual (PCR) NEGATIVE (Negative) 01/31/24 09:48 SARS-CoV-2 RNA (RT-PCR) NEGATIVE (Negative) 01/31/24 09:48 Impressions Abdomen/Pelvis CT 01/31/24 11:04 IMPRESSION: 1. Findings consistent with acute pancreatitis, similar when compared to the prior examination. No organized fluid collection or abscess formation. No pancreatic parenchymal lesion or ductal dilatation. 2. Significant wall thickening and enhancement involving the first and second portion of the duodenum with adjacent stranding, consistent with duodenitis reactive to adjacent pancreatitis. No evidence of bowel perforation. 3. Small amount of simple ascites. No organized fluid collection or abscess formation. No intra-abdominal free air. Fleischner guidelines were followed. Electronically signed by: Cory Fajardo MD 01/31/2024 12:14 PM [facility] Workstation: [id number] Discharge Plan Discharge Anticipated Discharge Date/Time: 02/04/24 13:35 Patient Disposition: Home, Self-Care Discharge Diagnosis: alcoholic pancreatitis alcohol use disorder prolonged QT interval Referrals: Yarely Tidwell, MORA [Nurse Practitioner] - 02/15/24 1:00 pm (Telehealth appt 02/14 at 1PM) Helen Woodson, ELSA [Primary Care Provider] - 1 Week Discharge Medications: New nicotine 14 mg/24 hr Patch 24 Hour 14 mg transdermal DAILY Qty: 30 0RF thiamine HCl (vitamin B1) 100 mg tablet 100 mg PO DAILY Qty: 30 0RF omeprazole 40 mg capsule,delayed release(DR/EC) 40 mg PO DAILY Qty: 30 0RF Continued buspirone 15 mg Tablet 15 mg PO BID clonidine HCl 0.1 mg tablet 0.1 mg PO BID mirtazapine 15 mg tablet 15 mg PO BEDTIME Discontinued hydroxyzine HCl 50 mg Tablet 50 mg PO DAILY PRN (Reason: Anxiety) Discharge Orders: Discharge Order (Routine); Ordered 02/04/24 Ordered By: Scooby Meza Diet: Low fat, low cholesterol Activity on Discharge: As tolerated Stand Alone Forms: Patient Portal Discharge page, Work/School Release Print Language: [place] Care Plan Goals: recovery from pancreatitis sobriety Health Concerns: alcoholic pancreatitis alcohol use disorder prolonged QT interval Plan of Treatment: maintain sobriety follow up with [facility], [address] [place] [address] [id number], on 02/15/24 at 1:00pm use acetaminophen [Tylenol] for pain control low-fat diet quit smoking stop hydroxyzine due to prolonged QT interval Please follow up with your primary care doctor within 1 week. Return to the hospital if you experience recurrent or worsening symptoms. Assessment: See Discharge Summary.
--- NOTE | 2024-02-04 14:18 | MHC.CM.PN ---
PATIENT MEDICALLY CLEARED FOR DC HOME SELF CARE. WILL TRANSPORT SELF HOME, RN AWARE.
== END 2024-02-04 15:27 | disposition home or self-care (01) | DRG 282 ==
LOC: HO.ED 12:47 → HO.EDOVER 13:11 → HO.IMC 17:07 → HO.S3 02-02 18:02
PROVIDERS: Internal Medicine; Admitting Provider Student in an Organized Health Care Education/Training Program; Emergency Provider Emergency Medicine; PCP Nurse Practitioner; Visit Provider Family Medicine
DX: K85.20 Alcohol induced acute pancreatitis without necrosis or infection (principal); I16.0 Hypertensive urgency; F17.210 Nicotine dependence, cigarettes, uncomplicated; Z71.6 Tobacco abuse counseling; R94.31 Abnormal electrocardiogram [ECG] [EKG]; F41.9 Anxiety disorder, unspecified; F10.939 Alcohol use, unspecified with withdrawal, unspecified; Z20.822 Contact with and (suspected) exposure to COVID-19; Z79.899 Other long term (current) drug therapy
CPT/HCPCS: 0241U; 36415; 74177; 80048; 80053; 80076; 80307; 81001; 83615; 83690; 83735; 84100; 84484; 84702; 85025; 85027; 85730; 93005; 99285; J1171; J1200; J1650; J1920; J2060; J2270; J2470; J2560; J3411; J3475; J3480; J7120; Q9967

== ENCOUNTER → 2024-01-31 09:28 | Outpatient (BNV) | payer OTHER, SELFPAY | PROVIDERS: Admitting Provider Student in an Organized Health Care Education/Training Program; Emergency Provider Emergency Medicine; PCP Nurse Practitioner; Visit Provider Internal Medicine Cardiovascular Disease | DX: R94.31 Abnormal electrocardiogram [ECG] [EKG] (principal) | CPT/HCPCS: 93010 ==

== ENCOUNTER 2024-01-31 13:04 | Outpatient (BNV) | payer OTHER, SELFPAY | END 2024-02-01 06:00 | PROVIDERS: Admitting Provider Student in an Organized Health Care Education/Training Program; Emergency Provider Emergency Medicine; PCP Nurse Practitioner; Visit Provider Internal Medicine Cardiovascular Disease | DX: R94.31 Abnormal electrocardiogram [ECG] [EKG] (principal) | CPT/HCPCS: 93010 ==

== ENCOUNTER → 2024-01-31 13:04 | Outpatient (BNV) | payer OTHER, SELFPAY | PROVIDERS: Admitting Provider Student in an Organized Health Care Education/Training Program; Emergency Provider Emergency Medicine; PCP Nurse Practitioner; Visit Provider Student in an Organized Health Care Education/Training Program | DX: R94.31 Abnormal electrocardiogram [ECG] [EKG] (principal); K85.20 Alcohol induced acute pancreatitis without necrosis or infection; F10.930 Alcohol use, unspecified with withdrawal, uncomplicated; F10.90 Alcohol use, unspecified, uncomplicated | CPT/HCPCS: 99223; 99232; 99239 ==

== ENCOUNTER 2024-04-19 18:12 | Inpatient (IN) | payer MEDICAID, SELFPAY ==
--- NOTE | ~2024-04-19 | CT_ITS ---
CLINICAL HISTORY: pancreatitis CT abdomen and pelvis with contrast Comparison: CT of the abdomen and pelvis from 01/31 2024. Findings: No consolidation in the imaged lung bases. Marked fluid about the partly obscured pancreas concerning for acute recurrent pancreatitis. No well-defined walled-off area of necrosis or well-formed stenosis by CT at this time. Steatotic change of the liver noted. Gallbladder is unremarkable for CT. The adrenal glands are normal. Spleen is nonenlarged. No hydronephrosis. Small periaortic, peripancreatic, and mesenteric lymph nodes are likely reactive. No small bowel obstruction. Mild small bowel dilatation likely due to ileus secondary to adjacent inflammation. Wall thickening of the large intestine concerning for colitis including transverse colon, splenic flexure, and descending colon. Moderate to severe stool burden is noted proximally, including the cecum. Partially imaged appendix is nondilated tip of the body and adjacent lymph node. Distal tip appendiceal also considered measuring 1 cm and without change from comparison. Free fluid in the pelvis is moderate and likely secondary to pancreatitis from above. Uterus and adnexa are unremarkable for CT. No osseous change in the [id number]-fnxs. IMPRESSION: Abnormal inflammation of the upper abdomen concerning for recurrent pancreatitis. This document has been electronically signed by: Nathan Staton MD on 04/19/2024 23:57:49
[2024-04-19 18:23] VITALS: BP 179/119; PULSE 100; RESP 16; TEMP 36.3; O2SAT 99; BMI 23.9
--- NOTE | 2024-04-19 18:27 | ED.ABDPAIN ---
HPI - Abdominal Pain General Chief Complaint: Abdominal Pain Stated Complaint: Back pain/Vomiting Time Seen by Provider: 04/19/24 22:12 Source: patient Mode of arrival: ambulatory Limitations: no limitations History of Present Illness ED Provider: HPI narrative: Patient's history of alcoholic pancreatitis last episode was in January 06 patient has stopped drinking and then started drinking again for last 6 months complaining of pain in mid abdomen started 2 days ago for nausea vomiting pain radiating to the back patient has last drink yesterday no fever no chills no urinary symptoms no abdominal this time Related Data Home Medications ?Medication ?Instructions ?Recorded ?Confirmed buspirone 15 mg tablet 15 mg PO BID 08/21/23 01/31/24 clonidine HCl 0.1 mg tablet 0.1 mg PO BID Anxiety 01/31/24 01/31/24 mirtazapine 15 mg tablet 15 mg PO BEDTIME 01/31/24 01/31/24 Previous Rx's ?Medication ?Instructions ?Recorded nicotine 14 mg/24 hr daily 14 mg transdermal DAILY #30 ea 02/04/24 transdermal patch omeprazole 40 mg capsule,delayed 40 mg PO DAILY #30 caps 02/04/24 release thiamine HCl (vitamin B1) 100 mg 100 mg PO DAILY #30 tabs 02/04/24 tablet Allergies Allergy/AdvReac Type Severity Reaction Status Date / Time ibuprofen AdvReac Unknown Verified 04/19/24 18:27 ondansetron [From Zofran] AdvReac Unknown Verified 04/19/24 18:27 Review of Systems Review of Systems Yes all other systems are reviewed and are negative PMFSH Past Medical History Medical History Alcoholism Anxiety Social History Social History Household Members: Family Household Members Other:: self and daughter comes every other weekend Housing: House Do you presently have visiting nurse or other home services: No Alcohol intake: current Alcohol intake frequency: a few times a week Alcohol type: hard liquor Patient Tobacco Use Status: Current everyday Tobacco user Tobacco use type: Cigarette Cigarette Packs Per Day: 0.5 Cigarettes Per Day: 10.0 Smoked in Last 30 Days: Yes e-Cigarette/Vaping Use: Never Used Second Hand Smoke Exposure: Yes Use of substances other than those prescribed or required for medical reasons: No Substance Use Type: Marijuana Advance Directives: No Advance Directives Information Provided: No Patient : No service: No Physical Exam ED Vital Signs: Vital Signs - 24 hr 04/19/24 18:23 04/19/24 20:07 04/19/24 21:32 Temperature 97.3 F 98.9 F 98.4 F Pulse Rate 100 82 72 Respiratory Rate 16 18 16 Blood Pressure 179/119 H 176/108 H 166/109 H Pulse Oximetry 99 98 97 Oxygen Delivery Method Room Air Room Air Room Air 04/19/24 23:33 Temperature 99.1 F Pulse Rate 78 Respiratory Rate 16 Blood Pressure 142/89 H Pulse Oximetry 99 Oxygen Delivery Method Room Air BMI result Body Mass Index 23.9 Appearance: Alert. Oriented X3. In moderate distress Eyes: No pallor or icterus ENT: Pharynx normal. Oral Mucosa moist Neck: Normal inspection. Neck supple. CVS: Normal heart rate and rhythm. Pulses normal. Respiratory: No respiratory distress. Equal air entry bilateral, no wheezing/rales/rhonchi Abdomen: Soft and tenderness mid abdomen with guarding no rebound tenderness Bowel sounds are present, no mass palpable, no CVA tenderness Skin: Skin warm and dry. Normal skin color. Normal skin turgor. Extremities: No lower extremity edema. No calf tenderness Neuro: Oriented X 3. No motor deficit. No sensory deficit. Course Course Course Narrative: This is a Rapid Medical Examination (RME) performed by Nadege Lopez PA-C in triage. Full HPI, ROS, assessment and treatment plan per primary provider in the Main ED. 38 yo female hx of etoh use disorder, embolic pancreatitis here for eval of epigastric abdominal pain that wraps around to her back. Last drink was yesterday. History of ETOH withdrawal. No history of ETOH withdrawal seizures or DT. Plan: labs, will defer imaging to primary provider Medical Decision Making Medical Decision Making [facility] Narrative: Patient has recurrent alcoholic pancreatitis CT scan showed mild inflammation of the pancreas no pseudocyst patient is feeling much better still having the pain will admit patient for supportive treatment Differential Diagnosis Differential Diagnoses: The differential diagnosis associated with the presentation includes Pancreatitis/cholecystitis/gastritis Admission/Observation Consideration of admission/observation: Escalation of care including admission/observation considered Consult Healthcare Provider Management of the patient was discussed with: Hospitalist Lab Data [facility] Lab Attestation statement: I reviewed the patient's lab results. 04/19/24 18:56 04/19/24 18:56 Labs: Lab Results 04/19/24 04/19/24 04/19/24 Range/Units 18:56 21:10 22:53 WBC 15.9 H (4.8-10.8) X10*3/uL RBC 5.54 H D (4.20-5.50) X10*6/uL Hgb 17.1 H D (12.0-16.0) g/dl Hct 49.8 H D (37.0-47.0) % MCV 89.9 (80.0-98.0) fL MCH 30.9 (27.0-33.0) pg MCHC 34.3 (31.0-35.0) g/dl RDW 15.2 (11.0-16.0) % Plt Count 153 L (160-400) X10*3/uL MPV 9.0 L (9.4-12.3) fL Immature Gran % (Auto) 1.0 H (0.0-0.4) % Neut % (Auto) 78.2 H (45-73) % Lymph % (Auto) 13.6 L (20-40) % [place] % (Auto) 5.3 (2-11) % Eos % (Auto) 1.5 (0-4) % Baso % (Auto) 0.4 (0-2) % Lymph # (Auto) 2.2 (1.2-4.9) X10*3/uL [place] # (Auto) 0.8 (0.1-1.2) X10*3/uL Eos # (Auto) 0.2 (0.0-0.4) X10*3/uL Baso # (Auto) 0.1 (0.0-0.2) X10*3/uL Abs Immat Gran (auto) 0.16 H (0.00-0.03) X10*3/uL Absolute Neuts (auto) 12.4 H (2.0-8.3) x10*3/uL Absolute Nucleated RBC 0.000 (0.0-0.012) X10*3/uL Nucleated RBC % (auto) 0.0 (0.0-0.2) /100WBC PT 12.3 (10.9-12.4) SEC INR 1.1 (0.9-1.1) Sodium 141 (135-145) mmol/L Potassium 4.3 (3.3-5.1) mmol/L Chloride 103 (96-108) mmol/L Carbon Dioxide 21 L (22-29) mmol/L Anion Gap 21 H (12-20) BUN 10 (9-16) mg/dL Creatinine 0.67 (0.5-1.4) mg/dL Estim Creat Clear Calc 109.6 Estimated GFR > 60 Random Glucose 193 H (60-115) mg/dL Lactic Acid 0.8 (0.5-2.0) mmol/L Calcium 9.3 D (8.4-10.2) mg/dL Magnesium 1.7 (1.6-2.6) mg/dL Total Bilirubin 0.9 (0.0-1.0) mg/dL AST 30 (5-31) U/L ALT 40 H (0-31) U/L Alkaline Phosphatase 81 (39-117) U/L Total Protein 7.5 (6.5-8.0) g/dL Albumin 4.2 (3.5-5.0) g/dL Lipase 625 H (8-78) U/L Beta HCG, Quant < 2 mIU/mL Urine Color Yellow Urine Appearance Cloudy Urine pH 5.5 (5.0-9.0) Ur Specific [place] >= 1.030 H (1.005-1.025) Urine Protein 30 (1+) H (Neg-Trace) mg/dL Urine Glucose (UA) >=1000 H (Negative) mg/dL Urine Ketones >=160 (Negative) mg/dL Urine Blood Negative (Negative) Urine Nitrite Negative (Negative) Ur Leukocyte Esterase Negative (Negative) Urine RBC 0-2 (0-2) /HPF Urine WBC 0-5 (0-5) /HPF Ur Squamous Epith Cells 11-20 (0-2) /HPF Urine Bacteria Trace (None Seen) Hyaline Casts 0-2 (0-2) /LPF Urine Test NEGATIVE (NEGATIVE) Ethyl Alcohol < 10 mg/dL Radiology Impression Discussion of test interpretation with radiology: I have reviewed the radiologist's reading. Radiologist Impression: [address] [address] [address] Scan Report Signed Patient: Gaby Mendez MR#: [id number] : 1985 Acct:[id number] Age/Sex: 38 / F ADM Date: 04/19/24 Loc: HO.ED Attending Dr: Ordering Physician: Hima Ventura MD Date of Service: 04/19/24 Procedure(s): CT abdomen pelvis w IV con Accession Number(s): [id number] cc: Helen Woodson STEEPING PRESS OPERATOR; Hima Ventura MD~ Report Number: [id number]: Total DLP = 503.00 mGy-cm CLINICAL HISTORY: pancreatitis CT abdomen and pelvis with contrast Comparison: CT of the abdomen and pelvis from 01/31 2024. Findings: No consolidation in the imaged lung bases. Marked fluid about the partly obscured pancreas concerning for acute recurrent pancreatitis. No well-defined walled-off area of necrosis or well-formed stenosis by CT at this time. Steatotic change of the liver noted. Gallbladder is unremarkable for CT. The adrenal glands are normal. Spleen is nonenlarged. No hydronephrosis. Small periaortic, peripancreatic, and mesenteric lymph nodes are likely reactive. No small bowel obstruction. Mild small bowel dilatation likely due to ileus secondary to adjacent inflammation. Wall thickening of the large intestine concerning for colitis including transverse colon, splenic flexure, and descending colon. Moderate to severe stool burden is noted proximally, including the cecum. Partially imaged appendix is nondilated tip of the body and adjacent lymph node. Distal tip appendiceal also considered measuring 1 cm and without change from comparison. Free fluid in the pelvis is moderate and likely secondary to pancreatitis from above. Uterus and adnexa are unremarkable for CT. No osseous change in the [id number]-[id number]. IMPRESSION: Abnormal inflammation of the upper abdomen concerning for recurrent pancreatitis. This document has been electronically signed by: Nathan Staton MD on 04/19/2024 23:57:49 Dictated By: Nathan Staton MD Signed By: <Electronically signed by Nathan Staton MD in OV> 04/19/24 0961 Medications Administered Discontinued Medications Generic Name Dose Route Start Last Admin Trade Name Freq PRN Reason Stop Dose Admin Famotidine 20 mg 04/19/24 22:14 04/19/24 22:32 Famotidine/Pf 20 Mg/2 Ml Vial IVPUSH 04/19/24 22:15 20 mg ONCE ONE Administration Sodium Chloride 1,000 mls @ 999 mls/hr 04/19/24 22:12 04/20/24 00:03 Ns IV 04/19/24 23:12 Infused .Q1H1M ONE Infusion Iohexol 85 ml 04/19/24 23:08 04/19/24 23:09 Iohexol 350 Mg/Ml 100 Ml Infus..Btl IV 04/19/24 23:09 85 ml ONCE ONE Administration Metoclopramide HCl 10 mg 04/19/24 22:13 04/19/24 22:32 Metoclopramide Hcl 10 Mg/2 Ml Vial IVPUSH 04/19/24 22:14 10 mg ONCE ONE Administration Morphine Sulfate 4 mg 04/19/24 22:13 04/19/24 22:32 Morphine Sulfate 4 Mg/Ml Cartridge IVPUSH 04/19/24 22:14 4 mg ONCE ONE Administration Protocol Discharge Plan Discharge Clinical Impression: Alcoholic pancreatitis Qualifiers: Chronicity: acute Acute pancreatitis complication: no infection or necrosis Qualified Code(s): K85.20 - Alcohol induced acute pancreatitis without necrosis or infection Patient Disposition: Admitted As Inpatient Print Language: Lithuanian
[2024-04-19 19:00] LABS: MANUAL DIFF FLAG NO
[2024-04-19 19:02] LABS: Basophils Absolute Auto 0.1 X10*3/uL (0.0-0.2); Basophils Percent Auto 0.4 % (0-2); Eosinophils Absolute Auto 0.2 X10*3/uL (0.0-0.4); Eosinophils Percent Auto 1.5 % (0-4); Hematocrit 49.8 % (37.0-47.0); Hemoglobin 17.1 g/dl (12.0-16.0); Imm Gran Abs Auto 0.16 X10*3/uL (0.00-0.03); Lymphocytes Absolute Auto 2.2 X10*3/uL (1.2-4.9); Lymphocytes Percent Auto 13.6 % (20-40); Mean Corpuscular HGB Conc 34.3 g/dl (31.0-35.0); Mean Corpuscular Hemoglobin 30.9 pg (27.0-33.0); Mean Corpuscular Volume 89.9 fL (80.0-98.0); Monocytes Absolute Auto 0.8 X10*3/uL (0.1-1.2); Monocytes Percent Auto 5.3 % (2-11); Neutrophils Absolute Auto 12.4 x10*3/uL (2.0-8.3); Neutrophils Percent Auto 78.2 % (45-73); Platelet Count 153 X10*3/uL (160-400); Red Blood Count 5.54 X10*6/uL (4.20-5.50); Red Cell Distribution Width 15.2 % (11.0-16.0); White Blood Count 15.9 X10*3/uL (4.8-10.8)
[2024-04-19 19:27] LABS: Alanine Aminotransferase 40 U/L (0-31); Albumin Level 4.2 g/dL (3.5-5.0); Alkaline Phosphatase 81 U/L (39-117); Anion Gap 21 (12-20); Aspartate Amino Transferase 30 U/L (5-31); Bilirubin Total 0.9 mg/dL (0.0-1.0); Blood Urea Nitrogen 10 mg/dL (9-16); Calcium 9.3 mg/dL (8.4-10.2); Carbon Dioxide 21 mmol/L (22-29); Chloride 103 mmol/L (96-108); Creatinine Clr Calc Pharmacy 109.6; Estimated Glomerular Filt Rate > 60; Glucose Random 193 mg/dL (60-115); HCG Quantitative < 2 mIU/mL; Magnesium 1.7 mg/dL (1.6-2.6); Potassium 4.3 mmol/L (3.3-5.1); Sodium 141 mmol/L (135-145); Total Protein 7.5 g/dL (6.5-8.0)
[2024-04-19 19:36] LABS: Lipase 625 U/L (8-78)
[2024-04-19 20:07] VITALS: BP 176/108; PULSE 82; RESP 18; TEMP 37.2; O2SAT 98
--- NOTE | 2024-04-19 20:08 | MHC.EDTECH ---
This pct just assumed care of Patient ,vitals taken ,DOUG Gan is aware of Pt high blood Pressure .
--- NOTE | 2024-04-19 21:10 | MHC.EDTECH ---
Patient urine sample collected and sent to lab .
[2024-04-19 21:18] LABS: Appearance Urine Cloudy; Color Urine Yellow; Glucose Urine UA >=1000 mg/dL (Negative); Leukocyte Esterase Urine Negative (Negative); Nitrite Urine Negative (Negative); PH 5.5 (5.0-9.0); Specific Gravity - Urine >= 1.030 (1.005-1.025); UMIC TRIGGER UACC YES; Urine Blood Negative (Negative); Urine Ketones >=160 mg/dL (Negative); Urine Protein 30 (1+) mg/dL (Neg-Trace)
[2024-04-19 21:26] LABS: UPreg QC Valid YES; Urine Pregnancy NEGATIVE (NEGATIVE)
[2024-04-19 21:32] VITALS: BP 166/109; PULSE 72; RESP 16; TEMP 36.9; O2SAT 97
[2024-04-19 21:50] LABS: Bacteria Urine Trace (None Seen); Hyaline Casts Urine 0-2 /LPF (0-2); RBC Urine 0-2 /HPF (0-2); WBC Urine 0-5 /HPF (0-5)
--- NOTE | 2024-04-19 22:20 | ECG_ITS ---
Test Reason : ABD PAIN Blood Pressure : */* mmHG Vent. Rate : 85 BPM Atrial Rate : 85 BPM P-R Int : 150 ms QRS Dur : 82 ms QT Int : 424 ms P-R-T Axes : 69 40 56 degrees QTcB Int : 504 ms Normal sinus rhythm Prolonged QT Abnormal ECG When compared with ECG of 01-Feb-2024 05:30, No significant change was found Referred By: Hima Ventura Electronically Signed By: Fransisco Smith
[2024-04-19] MEDS: 0.9 % Sodium Chloride 1,000 ML 999 ML IV (22:31)
[2024-04-19] MEDS: Famotidine/PF 20 MG/2 ML VIAL IVPUSH (22:32)
[2024-04-19] MEDS: Metoclopramide HCl 10 MG/2 ML VIAL IVPUSH (22:32)
[2024-04-19] MEDS: Morphine Sulfate 4 MG/ML CARTRIDGE IVPUSH (22:32)
--- NOTE | 2024-04-19 23:03 | MHC.EDTECH ---
Additional labs drawn and sent to lab ,ekg taken and was read by Provider .
[2024-04-19 23:08] LABS: INTERNATIONAL NORM RATIO 1.1 (0.9-1.1); Prothrombin Time 12.3 SEC (10.9-12.4)
[2024-04-19] MEDS: iohexoL 350 MG/ML 100 ML INFUS..BTL 85 ML IV (23:09)
[2024-04-19 23:15] LABS: Ethanol < 10 mg/dL
[2024-04-19 23:16] LABS: Lactic Acid 0.8 mmol/L (0.5-2.0)
[2024-04-19 23:33] VITALS: BP 142/89; PULSE 78; RESP 16; TEMP 37.3; O2SAT 99
[2024-04-20] VITALS (9 sets, daily range): BP systolic 127–181; BP diastolic 80–106; PULSE 67–86; RESP 16–19; TEMP 36.1–36.9; O2SAT 97–100; BMI 24.1
[2024-04-20] MEDS: HYDROmorphone HCl 2 MG/ML VIAL IVPUSH (01:23)
[2024-04-20] MEDS: 0.9 % Sodium Chloride 1,000 ML 999 ML IV (01:23)
--- NOTE | 2024-04-20 01:40 | PC.NURSE ---
pt a & o x4, able to make her needs known and ambulates with steady gait, from home with complaint of 10/10 abd pain with nausea and vomiting. Pt had hx of pancreatitis and reports pain is similar. Pt has been medicated with 4 mg of morphine which was effective and received 1 L of NS. Pain returned pt reporting 8/10 pain, pt medicated with 2 mg of dilaudid which has been effective per pt and receiving another lier of NS
--- NOTE | 2024-04-20 02:02 | P.HPHOSP_ITS ---
History of Present Illness Date of Service: 04/20/24 Attending physician on admission: Deandre Treviño Chief Complaint: abd pain, nausea, vomiting Patient is a 38-year-old female with a past medical history significant for alcohol use disorder, alcoholic pancreatitis, and prolonged QT (negative w/u), presented to the ED due to epigastric/generalized abdominal pain for the past 2 days. She reports this feels very similar to previous episodes of pancreatitis. She has been drinking at least 10 nips per day for the last few months. She did have a moment of sobriety and reports that she would like to come back to this. She is in resources from her last hospitalization for outpatient treatment. She has associated nausea and vomiting but reports her nausea is much better since receiving pain medication. She has been able to tolerate clear liquids since arriving here not been able to drink for the past 2 days. Denies any diarrhea or urinary sx. Review of Systems 2 Constitutional: Constitutional: Denies body ache(s), Denies chills, Denies fatigue, Denies fever(s) and Denies headache(s) Eyes: Eyes: Denies change in vision, Denies other visual disturbances and Denies photophobia ENT: Denies headache(s), Denies nasal congestion, Denies nasal discharge and Denies sore throat Cardiovascular: Cardiovascular: Denies chest pain, Denies syncope, Denies leg edema, Denies lightheadedness and Denies dyspnea Respiratory: Respiratory: Denies chest congestion, Denies cough, Denies dyspnea and Denies wheezing Gastrointestinal: Gastrointestinal: Reports abdominal pain, Denies melena, Denies hematochezia, Denies constipation, Denies diarrhea, Reports nausea, Reports vomiting and Denies hematemesis Genitourinary: Genitourinary: Denies hematuria, Denies dysuria and Denies urinary urgency Musculoskeletal: Musculoskeletal: Denies myalgias Integumentary/Breasts: Skin/Breast: Denies rash Neurologic: Denies confusion, Denies syncope and Denies headache(s) Psychiatric: Psychiatric: Denies confusion Endocrine: Endocrine: Denies fatigue Hematologic/Lymphatic: Hematologic/Lymphatic: Denies easy bleeding and Denies easy bruising Allergic/Immunologic: Allergic/Immunologic: Denies wheezing [facility] Medical History (Updated 04/20/24 @ 02:05 by Cortney Bryan, PA-C) Prolonged QT syndrome Alcoholism Anxiety Functional capacity: independent ambulation Social History Household Members: Family Household Members Other:: self and daughter comes every other weekend Housing: House Do you presently have visiting nurse or other home services: No Alcohol intake: current Alcohol intake frequency: a few times a week Alcohol type: hard liquor Patient Tobacco Use Status: Current everyday Tobacco user Tobacco use type: Cigarette Cigarette Packs Per Day: 0.5 Cigarettes Per Day: 10.0 Smoked in Last 30 Days: Yes e-Cigarette/Vaping Use: Never Used Second Hand Smoke Exposure: Yes Use of substances other than those prescribed or required for medical reasons: No Substance Use Type: Marijuana Advance Directives: No Advance Directives Information Provided: No Patient : No service: No Narrative: smokes 1 pk/day, smokes marijuana, 10+nips/day Meds Allergies Allergy/AdvReac Type Severity Reaction Status Date / Time ibuprofen AdvReac Unknown Verified 04/19/24 18:27 ondansetron [From Zofran] AdvReac Unknown Verified 04/19/24 18:27 Active Medications: Current Medications Acetaminophen (Acetaminophen 325 Mg Tablet) 975 mg PO Q6H PRN PRN Reason: Pain, Mild 1-3,fever,headache Calcium Carbonate (Calcium Carbonate 750 Mg Tab.Chew) 750 mg PO Q4H PRN PRN Reason: Heartburn Sodium Chloride (Ns) 1,000 mls @ 999 mls/hr IV .Q1H1M ONE Stop: 04/20/24 02:09 Last Admin: 04/20/24 01:23 Dose: 999 mls/hr Magnesium Sulfate/Dextrose (Magnesium Sulfate/D5w) 1 gm in 100 mls @ 100 mls/hr IV ONCE ONE Stop: 04/20/24 02:41 Magnesium Hydroxide (Milk Of Magnesia 30 Ml Oral.Susp) 30 ml PO DAILY PRN PRN Reason: Constipation Melatonin (Melatonin 3 Mg Tablet) 6 mg PO BEDTIME PRN PRN Reason: Insomnia Sodium Chloride (0.9 % Sodium Chloride Flush 3 Ml Syringe) 3 ml IVFLUSH QSHIFT [facility] Home Medications ?Medication ?Instructions ?Recorded ?Confirmed ?Last Taken ?Type buspirone 15 mg tablet 15 mg PO BID 08/21/23 01/31/24 01/29/24 History clonidine HCl 0.1 mg tablet 0.1 mg PO BID Anxiety 01/31/24 01/31/24 01/29/24 History mirtazapine 15 mg tablet 15 mg PO BEDTIME 01/31/24 01/31/24 01/29/24 History Physical Exam 2 Vital Signs and Narrative: Vital Signs: Last Vital Signs Temp 99.1 F 04/19/24 23:33 Pulse 78 04/19/24 23:33 Resp 16 04/19/24 23:33 BP 142/89 H 04/19/24 23:33 Pulse Ox 99 04/19/24 23:33 O2 Del Method Room Air 04/19/24 23:33 BMI result Body Mass Index 23.9 General: AOx3, no acute distress Resp: CTA bilaterally CVS: S1, S2, RRR GI: +BS, tender upper abd, no distention Skin: Warm, dry Neuro: Cranial nerves II-XII grossly intact bilaterally. Motor grossly intact bilaterally Extremities: No LE edema Psych: Appropriate affect Const: General: No confusion Orientation/consciousness: No confusion Eyes: Direct Ophthalmoscopy: No photophobia Neuro: General: No confusion Results Labs 04/20/24 04:43 04/20/24 04:43 Labs: Laboratory Results - last 24 hr 04/19/24 04/19/24 04/19/24 18:56 21:10 22:53 MCV 89.9 MCH 30.9 MCHC 34.3 RDW 15.2 Plt Count 153 L MPV 9.0 L Immature Gran % (Auto) 1.0 H Neut % (Auto) 78.2 H Lymph % (Auto) 13.6 L [place] % (Auto) 5.3 Eos % (Auto) 1.5 Baso % (Auto) 0.4 Lymph # (Auto) 2.2 [place] # (Auto) 0.8 Eos # (Auto) 0.2 Baso # (Auto) 0.1 Abs Immat Gran (auto) 0.16 H Absolute Neuts (auto) 12.4 H Absolute Nucleated RBC 0.000 Nucleated RBC % (auto) 0.0 PT 12.3 INR 1.1 Anion Gap 21 H Estim Creat Clear Calc 109.6 Estimated GFR > 60 Random Glucose 193 H Lactic Acid 0.8 Calcium 9.3 D Magnesium 1.7 Total Bilirubin 0.9 AST 30 ALT 40 H Alkaline Phosphatase 81 Total Protein 7.5 Albumin 4.2 Lipase 625 H Beta HCG, Quant < 2 Urine Color Yellow Urine Appearance Cloudy Urine pH 5.5 Ur Specific [place] >= 1.030 H Urine Protein 30 (1+) H Urine Glucose (UA) >=1000 H Urine Ketones >=160 Urine Blood Negative Urine Nitrite Negative Ur Leukocyte Esterase Negative Urine RBC 0-2 Urine WBC 0-5 Ur Squamous Epith Cells 11-20 Urine Bacteria Trace Hyaline Casts 0-2 Urine Test NEGATIVE Ethyl Alcohol < 10 Assessment and Plan (1) Alcoholic pancreatitis: Qualifiers: Acute pancreatitis complication: no infection or necrosis Chronicity: a cute Qualified Code(s): K85.20 - Alcohol induced acute pancreatitis without necrosis or infection Status: Acute (2) Alcohol use disorder: Status: Acute (3) Prolonged QT syndrome: Status: Acute Plan Patient is a 38-year-old female with a past medical history significant for alcohol use disorder, alcoholic pancreatitis, and prolonged QT (negative w/u), presented to the ED due to epigastric/generalized abdominal pain for the past 2 days. She reports this feels very similar to previous episodes of pancreatitis. Alcoholic pancreatitis - WBC 15.9 likely reactive, lactic acid normal, no sepsis - lipase elevated at 625 - abdominopelvic CT with abnormal inflammation of the upper abdomen concerning for recurrent pancreatitis - clear liquid diet, transition to regular diet as tolerated - pain management with morphine and Dilaudid - monitor CBC and BMP Alcohol use disorder - offered addiction med consult, patient declined - no history of alcohol withdrawal or seizures - discussed options of phenobarb versus monitoring, patient wishes to monitor CIWA scores at this time and initiate phenobarb if needed - alcohol cessation discussed Prolonged QT, chronic - magnesium low normal, replete with 1 g due to alcoholism and concern for need for antiemetics - avoid QT prolonging agents at this time Full code VTE prophylaxis: Lovenox Patient with acute alcoholic pancreatitis my requiring admission for pain management for at least 2 midnights stay. Quality Stroke Does the patient have a stroke diagnosis?: No VTE Prior VTE?: No VTE Risk Level:: Medical - moderate - high VTE Device Contraindication: Treatment Not Indicated VTE Drug Contraindication: N/A - Med Ordered
[2024-04-20] MEDS: Magnesium Sulfate/D5W 1 GM/100 ML PIGGYBACK IV (02:28)
[2024-04-20] MEDS: Morphine Sulfate 4 MG/ML CARTRIDGE IVPUSH ×4 (04:41→19:47)
[2024-04-20 04:56] LABS: Basophils Absolute Auto 0.1 X10*3/uL (0.0-0.2); Basophils Percent Auto 0.5 % (0-2); Eosinophils Absolute Auto 0.3 X10*3/uL (0.0-0.4); Eosinophils Percent Auto 1.7 % (0-4); Hematocrit 45.3 % (37.0-47.0); Hemoglobin 15.5 g/dl (12.0-16.0); Imm Gran Abs Auto 0.16 X10*3/uL (0.00-0.03); Imm Gran Pct Auto 1.1 % (0.0-0.4); Lymphocytes Absolute Auto 2.5 X10*3/uL (1.2-4.9); Lymphocytes Percent Auto 16.3 % (20-40); MANUAL DIFF FLAG NO; Mean Corpuscular HGB Conc 34.2 g/dl (31.0-35.0); Mean Corpuscular Hemoglobin 30.9 pg (27.0-33.0); Mean Corpuscular Volume 90.2 fL (80.0-98.0); Mean Platelet Volume 8.7 fL (9.4-12.3); Monocytes Absolute Auto 0.9 X10*3/uL (0.1-1.2); Monocytes Percent Auto 5.9 % (2-11); Neutrophils Absolute Auto 11.2 x10*3/uL (2.0-8.3); Neutrophils Percent Auto 74.5 % (45-73); Platelet Count 139 X10*3/uL (160-400); Red Blood Count 5.02 X10*6/uL (4.20-5.50); Red Cell Distribution Width 15.4 % (11.0-16.0)
[2024-04-20 05:19] LABS: Alanine Aminotransferase 28 U/L (0-31); Albumin Level 3.6 g/dL (3.5-5.0); Alkaline Phosphatase 68 U/L (39-117); Anion Gap 14 (12-20); Aspartate Amino Transferase 24 U/L (5-31); Bilirubin Total 0.6 mg/dL (0.0-1.0); Blood Urea Nitrogen 7 mg/dL (9-16); Calcium 8.2 mg/dL (8.4-10.2); Carbon Dioxide 16 mmol/L (22-29); Chloride 109 mmol/L (96-108); Creatinine Clr Calc Pharmacy 128.8; Estimated Glomerular Filt Rate > 60; Glucose Random 144 mg/dL (60-115); Potassium 4.1 mmol/L (3.3-5.1); Sodium 135 mmol/L (135-145); Total Protein 6.4 g/dL (6.5-8.0)
[2024-04-20] MEDS: HYDROmorphone HCl 1 MG/ML SYRINGE SUBCUT (05:30)
[2024-04-20] MEDS: HYDROmorphone HCl 1 MG/ML SYRINGE IVPUSH ×4 (07:42→22:28)
[2024-04-20] MEDS: Prochlorperazine Edisylate 10 MG/2 ML VIAL 5 MG IV ×4 (07:42→22:28)
--- NOTE | 2024-04-20 08:22 | MHC.CM.PN ---
CM met with Patient at bedside. Patient lives alone in an apaRTMENT THE MAJORITY OF THE TIME (HER 14 YEAR OLD dAUGHTER IS WITH HER AT TIMES) AND SHE IS FUNCTIONALLY INDEPENDENT. HOME SELF CARE VS RECOVERY TEAM iNTERVENTION IS THE TENTATIVE PLAN AND cm HAS INITIATED AND WILL FOLLOW FOR DC PLANNING. PATIENT DECLINED THE COMPLETION OF A hcp AND SHE MAY REQUIRE ASSIST WITH TRANSPORT AT DC/ pcp/ethnoarchaeology professor IS RAMESH AGUSTIN.
[2024-04-20] MEDS: Nicotine 21 MG PATCH.TD24 TRANSDERMA (09:44)
[2024-04-20] MEDS: Enoxaparin Sodium 40 MG/0.4 ML SYRINGE SUBCUT (09:44)
[2024-04-20] MEDS: 0.9 % Sodium Chloride Flush 3 ML SYRINGE IVFLUSH ×3 (09:45→19:48)
--- NOTE | 2024-04-20 09:59 | PHA.MEDREC ---
Addendum entered by Magy Early RPh 04/20/24 10:02: med rec reviewed by radha Original Note: Pharmacy Consult ? Medication Reconciliation Pharmacy has completed the medication reconciliation. Spoke to patient to confirm med list. patient states she no longer takes Omeprazole 40 mg, and Vitamin B1 100 mg. Patient says she last took her medication 04/19/24.
--- NOTE | 2024-04-20 11:58 | PM.EVENT ---
Event Note Date of Service: 04/20/24 Event Note: Chart reviewed patient examined. No acute changes on exam since admission. Continue plan as ordered Time Spent With Patient Time: Total time managing care of this patient today ____ minutes.
--- NOTE | 2024-04-20 13:31 | MHC.RECOVRN ---
AUDIT-C Brief Intervention Pt had positive screen for unhealthy alcohol use on admission. Attempted to meet with pt to discuss alcohol use and offer resources, pt declined.
--- NOTE | 2024-04-20 14:18 | MHC.CM.PN ---
Per [facility] financial, Patient is eligible for [facility] with a start date of 04/10/2024.
[2024-04-20] MEDS: Milk of Magnesia 30 ML ORAL.SUSP PO (19:42)
[2024-04-20] MEDS: busPIRone HCl 5 MG TABLET 15 MG PO (19:44)
[2024-04-20] MEDS: cloNIDine HCL 0.1 MG TABLET PO (19:45)
[2024-04-21] MEDS: HYDROmorphone HCl 1 MG/ML SYRINGE IVPUSH ×5 (02:25→22:14)
[2024-04-21 04:00] VITALS: BP 140/93; PULSE 85; RESP 20; TEMP 36.4; O2SAT 99
[2024-04-21] MEDS: Morphine Sulfate 4 MG/ML CARTRIDGE IVPUSH ×2 (05:45→19:51)
[2024-04-21 06:33] LABS: MANUAL DIFF FLAG NO
[2024-04-21 06:45] LABS: Basophils Absolute Auto 0.1 X10*3/uL (0.0-0.2); Basophils Percent Auto 0.6 % (0-2); Eosinophils Absolute Auto 0.4 X10*3/uL (0.0-0.4); Eosinophils Percent Auto 3.5 % (0-4); Hematocrit 46.8 % (37.0-47.0); Hemoglobin 15.7 g/dl (12.0-16.0); Imm Gran Abs Auto 0.17 X10*3/uL (0.00-0.03); Imm Gran Pct Auto 1.6 % (0.0-0.4); Lymphocytes Percent Auto 18.2 % (20-40); Mean Corpuscular HGB Conc 33.5 g/dl (31.0-35.0); Mean Corpuscular Hemoglobin 30.1 pg (27.0-33.0); Mean Corpuscular Volume 89.8 fL (80.0-98.0); Mean Platelet Volume 8.8 fL (9.4-12.3); Monocytes Absolute Auto 0.6 X10*3/uL (0.1-1.2); Monocytes Percent Auto 5.9 % (2-11); Neutrophils Absolute Auto 7.6 x10*3/uL (2.0-8.3); Neutrophils Percent Auto 70.2 % (45-73); Platelet Count 134 X10*3/uL (160-400); Red Blood Count 5.21 X10*6/uL (4.20-5.50); Red Cell Distribution Width 15.1 % (11.0-16.0); White Blood Count 10.8 X10*3/uL (4.8-10.8)
[2024-04-21 06:56] LABS: Alanine Aminotransferase 25 U/L (0-31); Albumin Level 3.8 g/dL (3.5-5.0); Alkaline Phosphatase 72 U/L (39-117); Anion Gap 14 (12-20); Aspartate Amino Transferase 27 U/L (5-31); Bilirubin Total 0.7 mg/dL (0.0-1.0); Blood Urea Nitrogen 6 mg/dL (9-16); Calcium 8.8 mg/dL (8.4-10.2); Carbon Dioxide 15 mmol/L (22-29); Chloride 107 mmol/L (96-108); Creatinine Clr Calc Pharmacy 138.6; Estimated Glomerular Filt Rate > 60; Glucose Random 158 mg/dL (60-115); Potassium 3.6 mmol/L (3.3-5.1); Sodium 132 mmol/L (135-145); Total Protein 6.9 g/dL (6.5-8.0)
[2024-04-21 06:59] VITALS: BP 141/87; PULSE 79; RESP 18; TEMP 36.6; O2SAT 98
[2024-04-21] MEDS: Nicotine 21 MG PATCH.TD24 TRANSDERMA (07:57)
[2024-04-21] MEDS: busPIRone HCl 5 MG TABLET 15 MG PO ×2 (07:57→19:50)
[2024-04-21] MEDS: cloNIDine HCL 0.1 MG TABLET PO ×2 (07:57→19:50)
[2024-04-21] MEDS: Enoxaparin Sodium 40 MG/0.4 ML SYRINGE SUBCUT (07:57)
[2024-04-21] MEDS: Lactated Ringers 1,000 ML 100 ML IVCONT ×2 (07:58→16:39)
[2024-04-21 08:28] LABS: Magnesium 2.1 mg/dL (1.6-2.6)
[2024-04-21] MEDS: polyethylene glycoL 3350 17 GM POWD.PACK PO (09:45)
[2024-04-21] MEDS: Sennosides/Docusate Sodium TABLET 2 TAB PO ×2 (09:45→19:50)
--- NOTE | 2024-04-21 12:24 | P.PNIM_ITS ---
Subjective Subjective Date of Service: 04/21/24 Interval History: tolerating clears this AM; still c/o abd pain Review of Systems Review of Systems: Yes all other systems are reviewed and are negative Physical Exam 2 Vital Signs: Vital Signs: Last Vital Signs Temp 97.9 F 04/21/24 06:59 Pulse 79 04/21/24 06:59 Resp 18 04/21/24 06:59 BP 141/87 H 04/21/24 06:59 Pulse Ox 98 04/21/24 06:59 O2 Del Method Room Air 04/21/24 06:59 BMI result Body Mass Index 24.1 Gen: in no acute distress HEENT: sclera anicteric, moist mucus membranes Neck: supple Lungs: clear to auscultation bilaterally Heart: regular rate and rhythm, no murmurs Abd: soft, tender around umbilicus, non-distended Ext: no edema Skin: warm/well-perfused Neuro: alert and oriented x3, no focal findings Psych: appropriate affect Objective Data Active Medications Acetaminophen (Acetaminophen 325 Mg Tablet) 975 mg PO Q6H PRN PRN Reason: Pain, Mild 1-3,fever,headache Buspirone HCl (Buspirone Hcl 5 Mg Tablet) 15 mg PO BID [facility] Last Admin: 04/21/24 07:57 Dose: 15 mg Documented By: RIVER Calcium Carbonate (Calcium Carbonate 750 Mg Tab.Chew) 750 mg PO Q4H PRN PRN Reason: Heartburn Clonidine HCl (Clonidine Hcl 0.1 Mg Tablet) 0.1 mg PO BID [facility]; Protocol Last Admin: 04/21/24 07:57 Dose: 0.1 mg Documented By: RIVER Enoxaparin Sodium (Enoxaparin Sodium 40 Mg/0.4 Ml Syringe) 40 mg SUBCUT DAILY [facility] Last Admin: 04/21/24 07:57 Dose: 40 mg Documented By: RIVER Hydromorphone HCl (Hydromorphone Hcl 1 Mg/Ml Syringe) 1 mg IVPUSH Q4H PRN; Protocol PRN Reason: Pain, Severe (Pain Scale 7-10) Last Admin: 04/21/24 12:22 Dose: 1 mg Documented By: RIVER Lactated Ringer's (Lr) 1,000 mls @ 100 mls/hr IVCONT .Q10H [facility] Last Admin: 04/21/24 07:58 Dose: 100 mls/hr Documented By: RIVER Magnesium Hydroxide (Milk Of Magnesia 30 Ml Oral.Susp) 30 ml PO DAILY PRN PRN Reason: Constipation Last Admin: 04/20/24 19:42 Dose: 30 ml Documented By: CODY Melatonin (Melatonin 3 Mg Tablet) 6 mg PO BEDTIME PRN PRN Reason: Insomnia Mirtazapine (Mirtazapine 15 Mg Tablet) 15 mg PO BEDTIME PRN PRN Reason: Sleep Morphine Sulfate (Morphine Sulfate 4 Mg/Ml Cartridge) 4 mg IVPUSH Q4H PRN; Protocol PRN Reason: Pain, Moderate(Pain Scale 4-6) Last Admin: 04/21/24 05:45 Dose: 4 mg Documented By: CODY Nicotine (Nicotine 21 Mg Patch.Td24) 21 mg TRANSDERMA DAILY [facility] Last Admin: 04/21/24 07:57 Dose: 21 mg Documented By: RIVER Polyethylene Glycol (Polyethylene Glycol 3350 17 Gm Powd.Pack) 17 gm PO DAILY [facility] Last Admin: 04/21/24 09:45 Dose: 17 gm Documented By: RIVER Prochlorperazine Edisylate (Prochlorperazine Edisylate 10 Mg/2 Ml Vial) 5 mg IV Q4H PRN PRN Reason: Nausea and Vomiting Last Admin: 04/20/24 22:28 Dose: 5 mg Documented By: CODY Senna/Docusate Sodium (Sennosides/Docusate Sodium Tablet) 2 tab PO BID [facility] Last Admin: 04/21/24 09:45 Dose: 2 tab Documented By: RIVER Sodium Chloride (0.9 % Sodium Chloride Flush 3 Ml Syringe) 3 ml IVFLUSH QSHIFT [facility] Last Admin: 04/21/24 08:14 Dose: Not Given Documented By: RIVER Non-Admin Reason: IV Running Labs 04/21/24 05:48 04/21/24 05:48 Labs: Laboratory Results - last 24 hr 04/21/24 05:48 MCV 89.8 MCH 30.1 MCHC 33.5 RDW 15.1 Plt Count 134 L MPV 8.8 L Immature Gran % (Auto) 1.6 H Neut % (Auto) 70.2 Lymph % (Auto) 18.2 L [place] % (Auto) 5.9 Eos % (Auto) 3.5 Baso % (Auto) 0.6 Lymph # (Auto) 2.0 [place] # (Auto) 0.6 Eos # (Auto) 0.4 Baso # (Auto) 0.1 Abs Immat Gran (auto) 0.17 H Absolute Neuts (auto) 7.6 Absolute Nucleated RBC 0.000 Nucleated RBC % (auto) 0.0 Anion Gap 14 Estim Creat Clear Calc 138.6 Estimated GFR > 60 Random Glucose 158 H Calcium 8.8 D Magnesium 2.1 Total Bilirubin 0.7 AST 27 ALT 25 Alkaline Phosphatase 72 Total Protein 6.9 Albumin 3.8 Assessment and Plan (1) Alcoholic pancreatitis: Status: Acute Plan d2 for 38yo F with AUD + hx pancreatitis, QT prolongation; presenting with 2d of abd pain and admitted for acute pancreatitis acute alcoholic pancreatitis - clear liquids, IV LR, pain management with IV morphine + hydromorphone, emesis management with IV prochlorperazine, monitor electrolytes AUD - declines addiction medicine consultation; prn CIWA; no signs of withdrawal at this time QTc prolongation - recheck EKG, check K/Mg mood disorder - buspirone, clonidine VTE ppx - enoxaparin dispo - eventual home In my clinical judgment, the patient requires continued inpatient hospitalization for the following reasons: IV fluids + IV analgesia Total time managing care of this patient today: 35 minutes. Quality Stroke Does the patient have a stroke diagnosis?: No VTE Prior VTE?: No VTE Risk Level:: Medical - moderate - high VTE Device Contraindication: Treatment Not Indicated VTE Drug Contraindication: N/A - Med Ordered
[2024-04-21 15:11] VITALS: BP 133/86; PULSE 82; RESP 18; TEMP 36.3; O2SAT 98
[2024-04-21] MEDS: 0.9 % Sodium Chloride Flush 3 ML SYRINGE IVFLUSH (16:35)
[2024-04-21] MEDS: LORazepam 0.5 MG TABLET PO (17:03)
[2024-04-21 19:41] VITALS: BP 170/102; PULSE 84; RESP 18; TEMP 36.4; O2SAT 100
[2024-04-21 20:28] VITALS: BP 148/94; PULSE 79; RESP 14
[2024-04-21] MEDS: Prochlorperazine Edisylate 10 MG/2 ML VIAL 5 MG IV (23:01)
[2024-04-21 23:05] VITALS: BP 137/88; PULSE 75; RESP 16; TEMP 36.1; O2SAT 99
[2024-04-22] MEDS: Morphine Sulfate 4 MG/ML CARTRIDGE IVPUSH ×2 (02:06→09:39)
[2024-04-22] MEDS: 0.9 % Sodium Chloride Flush 3 ML SYRINGE IVFLUSH (02:07)
[2024-04-22 03:14] VITALS: BP 131/84; PULSE 77; RESP 14; TEMP 36.5; O2SAT 97
[2024-04-22] MEDS: Lactated Ringers 1,000 ML 100 ML IVCONT (03:24)
[2024-04-22 06:53] LABS: MANUAL DIFF FLAG NO
[2024-04-22] MEDS: HYDROmorphone HCl 1 MG/ML SYRINGE IVPUSH ×2 (06:53→13:39)
[2024-04-22 06:54] VITALS: BP 163/95; PULSE 84; RESP 18; TEMP 36.5; O2SAT 98
[2024-04-22 07:00] LABS: Basophils Percent Auto 0.5 % (0-2); Eosinophils Absolute Auto 0.4 X10*3/uL (0.0-0.4); Eosinophils Percent Auto 5.2 % (0-4); Hematocrit 41.7 % (37.0-47.0); Hemoglobin 14.2 g/dl (12.0-16.0); Imm Gran Abs Auto 0.12 X10*3/uL (0.00-0.03); Imm Gran Pct Auto 1.5 % (0.0-0.4); Lymphocytes Absolute Auto 2.2 X10*3/uL (1.2-4.9); Lymphocytes Percent Auto 28.2 % (20-40); Mean Corpuscular HGB Conc 34.1 g/dl (31.0-35.0); Mean Corpuscular Hemoglobin 30.2 pg (27.0-33.0); Mean Corpuscular Volume 88.7 fL (80.0-98.0); Mean Platelet Volume 9.4 fL (9.4-12.3); Monocytes Absolute Auto 0.7 X10*3/uL (0.1-1.2); Monocytes Percent Auto 8.2 % (2-11); Neutrophils Absolute Auto 4.5 x10*3/uL (2.0-8.3); Neutrophils Percent Auto 56.4 % (45-73); Platelet Count 150 X10*3/uL (160-400)
[2024-04-22 07:17] LABS: Alanine Aminotransferase 24 U/L (0-31); Albumin Level 3.3 g/dL (3.5-5.0); Alkaline Phosphatase 61 U/L (39-117); Anion Gap 12 (12-20); Aspartate Amino Transferase 40 U/L (5-31); Bilirubin Total 0.6 mg/dL (0.0-1.0); Blood Urea Nitrogen 4 mg/dL (9-16); Calcium 8.5 mg/dL (8.4-10.2); Carbon Dioxide 17 mmol/L (22-29); Chloride 107 mmol/L (96-108); Creatinine Clr Calc Pharmacy 146.9; Estimated Glomerular Filt Rate > 60; Glucose Random 148 mg/dL (60-115); Magnesium 1.8 mg/dL (1.6-2.6); Potassium 3.2 mmol/L (3.3-5.1); Sodium 133 mmol/L (135-145)
[2024-04-22] MEDS: Nicotine 21 MG PATCH.TD24 TRANSDERMA (09:21)
[2024-04-22] MEDS: Enoxaparin Sodium 40 MG/0.4 ML SYRINGE SUBCUT (09:22)
[2024-04-22] MEDS: polyethylene glycoL 3350 17 GM POWD.PACK PO (09:22)
[2024-04-22] MEDS: Sennosides/Docusate Sodium TABLET 2 TAB PO (09:22)
[2024-04-22] MEDS: busPIRone HCl 5 MG TABLET 15 MG PO (09:22)
[2024-04-22] MEDS: Potassium Chloride ER 20 MEQ TAB.ER.PRT 40 MEQ PO (09:22)
[2024-04-22] MEDS: cloNIDine HCL 0.1 MG TABLET PO (09:22)
[2024-04-22] MEDS: 0.9 % Sodium Chloride 1,000 ML 100 ML IVCONT (09:23)
[2024-04-22] MEDS: Prochlorperazine Edisylate 10 MG/2 ML VIAL 5 MG IV (09:30)
[2024-04-22 09:39] VITALS: RESP 16
[2024-04-22] MEDS: bisacodyL 5 MG TABLET.DR 10 MG PO (11:28)
[2024-04-22 12:53] LABS: Anion Gap 13 (12-20); Blood Urea Nitrogen 4 mg/dL (9-16); Calcium 8.5 mg/dL (8.4-10.2); Carbon Dioxide 19 mmol/L (22-29); Chloride 108 mmol/L (96-108); Estimated Glomerular Filt Rate > 60; Glucose Random 174 mg/dL (60-115); Potassium 4.2 mmol/L (3.3-5.1); Sodium 136 mmol/L (135-145)
--- NOTE | 2024-04-22 13:44 | PM.DS ---
DS: Providers Provider Date of Service: 04/22/24 Date of admission: 04/20/24 01:57 Date of discharge: 04/22/24 Primary care physician: Helen Woodson NP Consults: 04/20/24 09:03 Addiction Medicine Routine Consulting Provider: Addiction Covering Reason for consultation: ETOH DS: Diagnosis Discharge Diagnosis (1) Alcoholic pancreatitis: Status: Acute (2) Alcohol use disorder: Status: Acute DS: Summary Hospital Course Hospital Course: From the history and physical by the admitting hospitalist, ANN Adams, 04/20/24: Patient is a 38-year-old female with a past medical history significant for alcohol use disorder, alcoholic pancreatitis, and prolonged QT (negative w/u), presented to the ED due to epigastric/generalized abdominal pain for the past 2 days. She reports this feels very similar to previous episodes of pancreatitis. She has been drinking at least 10 nips per day for the last few months. She did have a moment of sobriety and reports that she would like to come back to this. She is in resources from her last hospitalization for outpatient treatment. She has associated nausea and vomiting but reports her nausea is much better since receiving pain medication. She has been able to tolerate clear liquids since arriving here not been able to drink for the past 2 days. Denies any diarrhea or urinary sx. 38yo F with AUD + hx pancreatitis, QT prolongation; presenting with 2d of abd pain and admitted for acute pancreatitis. She was treated with bowel rest and isotonic IV fluid hydration along with IV opioids. Symptoms improved and diet was advanced. She declined Addiction Medicine consultation but should consider outpatient referral to the [facility]. She did not develop alcohol withdrawal syndrome. She was discharged with instructions to follow up with primary care in 1 week. Time Attestation Discharge Coordination Time (in mins): 35 Quality: Safe Use of Opioids Does Pt have an Active Cancer Diagnosis on the Problem List?: No Quality: Stroke Does the patient have a stroke diagnosis?: No Physical Exam Vital Signs: Vital Signs: Last Vital Signs Temp 97.7 F 04/22/24 06:54 Pulse 84 04/22/24 06:54 Resp 16 04/22/24 09:39 BP 163/95 H 04/22/24 06:54 Pulse Ox 98 04/22/24 06:54 O2 Del Method Room Air 04/22/24 06:54 BMI result Body Mass Index 24.1 Gen: in no acute distress HEENT: sclera anicteric, moist mucus membranes Neck: supple Lungs: clear to auscultation bilaterally Heart: regular rate and rhythm, no murmurs Abd: soft, non-tender, non-distended Ext: no edema Skin: warm/well-perfused Neuro: alert and oriented x3, no focal findings Psych: appropriate affect DS: Data Data Completed and Pending Completed studies during hospitalization [Text1]: Laboratory Results WBC 8.0 X10*3/uL (4.8-10.8) 04/22/24 06:00 RBC 4.70 X10*6/uL (4.20-5.50) 04/22/24 06:00 Hgb 14.2 g/dl (12.0-16.0) 04/22/24 06:00 Hct 41.7 % (37.0-47.0) 04/22/24 06:00 MCV 88.7 fL (80.0-98.0) 04/22/24 06:00 MCH 30.2 pg (27.0-33.0) 04/22/24 06:00 MCHC 34.1 g/dl (31.0-35.0) 04/22/24 06:00 RDW 15.0 % (11.0-16.0) 04/22/24 06:00 Plt Count 150 X10*3/uL (160-400) L 04/22/24 06:00 MPV 9.4 fL (9.4-12.3) 04/22/24 06:00 Immature Gran % (Auto) 1.5 % (0.0-0.4) H 04/22/24 06:00 Neut % (Auto) 56.4 % (45-73) 04/22/24 06:00 Lymph % (Auto) 28.2 % (20-40) 04/22/24 06:00 [place] % (Auto) 8.2 % (2-11) 04/22/24 06:00 Eos % (Auto) 5.2 % (0-4) H 04/22/24 06:00 Baso % (Auto) 0.5 % (0-2) 04/22/24 06:00 Lymph # (Auto) 2.2 X10*3/uL (1.2-4.9) 04/22/24 06:00 Pine # (Auto) 0.7 X10*3/uL (0.1-1.2) 04/22/24 06:00 Eos # (Auto) 0.4 X10*3/uL (0.0-0.4) 04/22/24 06:00 Baso # (Auto) 0.0 X10*3/uL (0.0-0.2) 04/22/24 06:00 Abs Immat Gran (auto) 0.12 X10*3/uL (0.00-0.03) H 04/22/24 06:00 Absolute Neuts (auto) 4.5 x10*3/uL (2.0-8.3) 04/22/24 06:00 Absolute Nucleated RBC 0.000 X10*3/uL (0.0-0.012) 04/22/24 06:00 Nucleated RBC % (auto) 0.0 /100WBC (0.0-0.2) 04/22/24 06:00 PT 12.3 SEC (10.9-12.4) 04/19/24 22:53 INR 1.1 (0.9-1.1) 04/19/24 22:53 Sodium 136 mmol/L (135-145) 04/22/24 12:31 Potassium 4.2 mmol/L (3.3-5.1) D 04/22/24 12:31 Chloride 108 mmol/L (96-108) 04/22/24 12:31 Carbon Dioxide 19 mmol/L (22-29) L 04/22/24 12:31 Anion Gap 13 (12-20) 04/22/24 12:31 BUN 4 mg/dL (9-16) L 04/22/24 12:31 Creatinine 0.48 mg/dL (0.5-1.4) L 04/22/24 12:31 Estim Creat Clear Calc 153.0 04/22/24 12:31 Estimated GFR > 60 04/22/24 12:31 Random Glucose 174 mg/dL (60-115) H 04/22/24 12:31 Lactic Acid 0.8 mmol/L (0.5-2.0) 04/19/24 22:53 Calcium 8.5 mg/dL (8.4-10.2) 04/22/24 12:31 Magnesium 1.8 mg/dL (1.6-2.6) 04/22/24 06:00 Total Bilirubin 0.6 mg/dL (0.0-1.0) 04/22/24 06:00 AST 40 U/L (5-31) H 04/22/24 06:00 ALT 24 U/L (0-31) 04/22/24 06:00 Alkaline Phosphatase 61 U/L (39-117) 04/22/24 06:00 Total Protein 6.0 g/dL (6.5-8.0) L 04/22/24 06:00 Albumin 3.3 g/dL (3.5-5.0) L 04/22/24 06:00 Lipase 625 U/L (8-78) H 04/19/24 18:56 Beta HCG, Quant < 2 mIU/mL 04/19/24 18:56 Urine Color Yellow 04/19/24 21:10 Urine Appearance Cloudy 04/19/24 21:10 Urine pH 5.5 (5.0-9.0) 04/19/24 21:10 Ur Specific [place] >= 1.030 (1.005-1.025) H 04/19/24 21:10 Urine Protein 30 (1+) mg/dL (Neg-Trace) H 04/19/24 21:10 Urine Glucose (UA) >=1000 mg/dL (Negative) H 04/19/24 21:10 Urine Ketones >=160 mg/dL (Negative) 04/19/24 21:10 Urine Blood Negative (Negative) 04/19/24 21:10 Urine Nitrite Negative (Negative) 04/19/24 21:10 Ur Leukocyte Esterase Negative (Negative) 04/19/24 21:10 Urine RBC 0-2 /HPF (0-2) 04/19/24 21:10 Urine WBC 0-5 /HPF (0-5) 04/19/24 21:10 Ur Squamous Epith Cells 11-20 /HPF (0-2) 04/19/24 21:10 Urine Bacteria Trace (None Seen) 04/19/24 21:10 Hyaline Casts 0-2 /LPF (0-2) 04/19/24 21:10 Urine Test NEGATIVE (NEGATIVE) 04/19/24 21:10 Ethyl Alcohol < 10 mg/dL 04/19/24 22:53 Discharge Plan Discharge Anticipated Discharge Date/Time: 04/22/24 13:38 Patient Disposition: Home, Self-Care Discharge Diagnosis: alcoholic pancreatitis alcohol use disorder Referrals: Yarely Tidwell CNP [Nurse Practitioner] - 1 Week Helen Woodson NP [Primary Care Provider] - 1 Week Discharge Medications: New oxycodone 5 mg tablet 5 mg PO Q8H PRN (Reason: pain, severe) Qty: 10 0RF Rx Instructions: Partial Fill upon patient request. Continued nicotine 14 mg/24 hr patch 24 hour 14 mg transdermal DAILY PRN (Reason: Smoking Cessation) buspirone 15 mg Tablet 15 mg PO BID clonidine HCl 0.1 mg tablet 0.1 mg PO BID mirtazapine 15 mg tablet 15 mg PO BEDTIME PRN (Reason: Sleep) Discharge Orders: Discharge Order (Routine); Ordered 04/22/24 Ordered By: Scooby Meza Diet: Low fat, low cholesterol Activity on Discharge: As tolerated Stand Alone Forms: Patient Portal Discharge page Print Language: Nepali Care Plan Goals: sobriety Health Concerns: alcoholic pancreatitis alcohol use disorder Plan of Treatment: lowfat diet avoid alcohol; consider follow up with [facility] take acetaminophen for mild-moderate pain, oxycodone for severe pain Please follow up with your primary care doctor within 1 week. Return to the hospital if you experience recurrent or worsening symptoms. Assessment: See Discharge Summary.
--- NOTE | 2024-04-22 13:46 | MHC.CM.PN ---
Patient has been medically cleared for dc to home today, self care.
== END 2024-04-22 15:37 | disposition home or self-care (01) | DRG 282 ==
LOC: HO.ED 04-20 01:16 → HO.EDOVER 04-20 02:17 → HO.IMC 04-20 07:12
PROVIDERS: Physician Assistant Medical; Admitting Provider Physician Assistant; Emergency Provider Internal Medicine; PCP Nurse Practitioner; Visit Provider Family Medicine
DX: K85.20 Alcohol induced acute pancreatitis without necrosis or infection (principal); F10.20 Alcohol dependence, uncomplicated; F17.210 Nicotine dependence, cigarettes, uncomplicated; F39 Unspecified mood [affective] disorder; R94.31 Abnormal electrocardiogram [ECG] [EKG]; Z71.6 Tobacco abuse counseling; Z79.899 Other long term (current) drug therapy
CPT/HCPCS: 36415; 74177; 80048; 80053; 80307; 81001; 81025; 83605; 83690; 83735; 84702; 85025; 85610; 93005; 99285; J0737; J1171; J1650; J2270; J2765; J3475; J7120; Q9967

== ENCOUNTER → 2024-04-19 22:13 | Outpatient (BNV) | payer MEDICAID, SELFPAY | PROVIDERS: Emergency Provider Internal Medicine; PCP Nurse Practitioner; Visit Provider Radiology Neuroradiology | DX: K86.1 Other chronic pancreatitis (principal) | CPT/HCPCS: 74177 ==

== ENCOUNTER → 2024-04-19 22:20 | Outpatient (BNV) | payer MEDICAID, SELFPAY | PROVIDERS: Admitting Provider Physician Assistant; Emergency Provider Internal Medicine; PCP Nurse Practitioner; Visit Provider Internal Medicine Cardiovascular Disease | DX: R94.31 Abnormal electrocardiogram [ECG] [EKG] (principal); R10.9 Unspecified abdominal pain | CPT/HCPCS: 93010 ==

== ENCOUNTER → 2024-04-20 01:57 | Outpatient (BNV) | payer MEDICAID, SELFPAY | PROVIDERS: Admitting Provider Physician Assistant; Emergency Provider Internal Medicine; PCP Nurse Practitioner; Visit Provider Physician Assistant | DX: K85.20 Alcohol induced acute pancreatitis without necrosis or infection (principal); F10.90 Alcohol use, unspecified, uncomplicated; I45.81 Long QT syndrome | CPT/HCPCS: 99223; 99499 ==

== ENCOUNTER 2024-08-10 10:38 | Emergency (ER) | payer OTHER, SELFPAY ==
[2024-08-10] VITALS (7 sets, daily range): BP systolic 121–145; BP diastolic 82–100; PULSE 76–102; RESP 13–16; TEMP 36.8–37.3; O2SAT 97–99; BMI 21.9
--- NOTE | 2024-08-10 11:02 | ECG_ITS ---
Test Reason : qt check Blood Pressure : */* mmHG Vent. Rate : 96 BPM Atrial Rate : 96 BPM P-R Int : 138 ms QRS Dur : 88 ms QT Int : 390 ms P-R-T Axes : 75 40 72 degrees QTcB Int : 492 ms Normal sinus rhythm Prolonged QT Abnormal ECG When compared with ECG of 19-Apr-2024 22:57, No significant change was found Referred By: Lexy Oneill Electronically Signed By: NSIHA IRVIN MD
--- NOTE | 2024-08-10 11:02 | ED_ITS ---
HPI - Alcohol General Chief Complaint: ETOH/Substance Use Stated Complaint: Weakness, Back Pain Time Seen by Provider: 08/10/24 11:14 History of Present Illness ED Provider: Ck Arriaga MD HPI narrative: 39 F hx ETOH use do, here with acute intoxication initially c/o lightheadedness, dehydration, questioning a desire for detox. No bloody vomit/stool. Denies fever, dyspnea, chest pain. Related Data Home Medications ?Medication ?Instructions ?Recorded ?Confirmed buspirone 15 mg tablet 15 mg PO BID 08/21/23 04/20/24 clonidine HCl 0.1 mg tablet 0.1 mg PO BID Anxiety 01/31/24 04/20/24 mirtazapine 15 mg tablet 15 mg PO BEDTIME PRN Sleep 01/31/24 04/20/24 nicotine 14 mg/24 hr daily 14 mg transdermal DAILY PRN 04/20/24 04/20/24 transdermal patch Smoking Cessation Previous Rx's ?Medication ?Instructions ?Recorded oxycodone 5 mg tablet 5 mg PO Q8H PRN pain, severe #10 04/22/24 tabs Allergies Allergy/AdvReac Type Severity Reaction Status Date / Time ibuprofen AdvReac Unknown Verified 08/10/24 11:05 ondansetron [From Zofran] AdvReac Unknown Verified 08/10/24 11:05 PMFSH Past Medical History Medical History (Updated 08/10/24 @ 18:21 by Ck Arriaga MD) Prolonged QT syndrome Alcoholism Anxiety Social History Social History Household Members: None Household Members Other:: self and daughter comes every other weekend Housing: House Do you presently have visiting nurse or other home services: No Alcohol intake: current Alcohol intake frequency: 0-2 drinks per day Alcohol type: hard liquor Patient Tobacco Use Status: Current everyday Tobacco user Tobacco use type: Cigarette Cigarette Packs Per Day: 0.5 Cigarettes Per Day: 10.0 Smoked in Last 30 Days: No e-Cigarette/Vaping Use: Never Used Second Hand Smoke Exposure: Yes Use of substances other than those prescribed or required for medical reasons: No Substance Use Type: Marijuana Advance Directives: No Advance Directives Information Provided: Yes Do you have a plan to hurt others: No Plan service: No Physical Exam ED Vital Signs: Vital Signs - 24 hr 08/10/24 11:01 08/10/24 12:00 08/10/24 14:00 Temperature 98.2 F 98.3 F 98.3 F Pulse Rate 102 H 85 76 Respiratory Rate 16 13 16 Blood Pressure 135/100 H 123/89 121/82 Pulse Oximetry 97 98 98 Oxygen Delivery Method Room Air Room Air 08/10/24 15:35 08/10/24 18:03 Temperature Pulse Rate 87 84 Respiratory Rate 14 16 Blood Pressure 126/88 138/93 H Pulse Oximetry 99 99 Oxygen Delivery Method Room Air Room Air BMI result Body Mass Index 21.9 NIH Stroke Scale Internal: Initial- Upon Arrival Level of Consciousness: Alert Level of Consciousness Questions: Answers both questions correctly Level of Consciousness Commands: Performs both tasks correctly Best Gaze: Normal Visual: No visual loss Facial Palsy: Normal Motor Arm (Right): No drift Motor Arm (Left): No drift Motor Leg (Right): No drift Motor Leg (Left): No drift Limb Ataxia: Absent Sensory: Normal Best Language: No aphasia Dysarthia: Normal Extinction and Inattention: No abnormality Score: 0 Course Course Course Narrative: 39 yo female with PMH of prolonged qtc, ETOH use disorder, no prior seizures, no falls and feels her R side is weak since yesterday afternoon. Was seen at [facility] ED on Thursday LWCT. She states her last drink was yesterday she started drinking about a month ago with a sleeve a day. No GIB symptoms. She wants to go to detox. She tried to detox at home in past. Tried to get into the comprehensive clinic in past. She did try naltrexone in past but failed per her reports. She has no deficits - I have ordered labs, EKG, started her on valium, thiamine and empiric magnesium. gastroenterology technician aware of presentation. this is a RAPID medical screening exam the rest of the history and physical exam is to be done by the main provider. LD 08/10/24 11am Medical Decision Making Medical Decision Making MDM Narrative: 39-year-old female with alcohol use disorder now requesting detox she feels dehydrated lightheaded near-syncope earlier. On exam she has alcohol on breath is mildly tachycardic. No significant abdominal pain she has had pancreatitis in the past however. Lab work reassuring she was given thiamine IV fluid magnesium prior to my evaluation by a provider at triage. I did discuss the case with ED recovery team who attempted to match her with a regional detox within her insurance. Later at about 18:15 the care team providers notified me she was not interested in going to detox anymore. The provider with resources and we will discharge her home. Differential Diagnosis Differential Diagnoses: The differential diagnosis associated with the presentation includes Alcohol use disorder, electrolyte derangement, dehydration, vitamin deficiency, early withdrawal Consult Healthcare Provider Management of the patient was discussed with: Behavioral Health Provider Lab Data MDM Lab Attestation statement: I reviewed the patient's lab results. 08/10/24 11:23 08/10/24 11:23 Labs: Lab Results 08/10/24 08/10/24 Range/Units 11:23 11:40 WBC 12.1 H (4.8-10.8) X10*3/uL RBC 4.76 (4.20-5.50) X10*6/uL Hgb 14.7 (12.0-16.0) g/dl Hct 41.9 (37.0-47.0) % MCV 88.0 (80.0-98.0) fL MCH 30.9 (27.0-33.0) pg MCHC 35.1 H (31.0-35.0) g/dl RDW 13.2 (11.0-16.0) % Plt Count 135 L (160-400) X10*3/uL MPV 9.0 L (9.4-12.3) fL Immature Gran % (Auto) 0.6 H (0.0-0.4) % Neut % (Auto) 70.9 (45-73) % Lymph % (Auto) 23.6 (20-40) % [place] % (Auto) 4.0 (2-11) % Eos % (Auto) 0.6 (0-4) % Baso % (Auto) 0.3 (0-2) % Lymph # (Auto) 2.9 (1.2-4.9) X10*3/uL [place] # (Auto) 0.5 (0.1-1.2) X10*3/uL Eos # (Auto) 0.1 (0.0-0.4) X10*3/uL Baso # (Auto) 0.0 (0.0-0.2) X10*3/uL Abs Immat Gran (auto) 0.07 H (0.00-0.03) X10*3/uL Absolute Neuts (auto) 8.6 H (2.0-8.3) x10*3/uL Absolute Nucleated RBC 0.000 (0.0-0.012) X10*3/uL Nucleated RBC % (auto) 0.0 (0.0-0.2) /100WBC Sodium 135 (135-145) mmol/L Potassium 4.0 (3.3-5.1) mmol/L Chloride 102 (96-108) mmol/L Carbon Dioxide 18 L (22-29) mmol/L Anion Gap 19 (12-20) BUN 4 L (9-16) mg/dL Creatinine 0.59 (0.5-1.4) mg/dL Estim Creat Clear Calc 123.3 Estimated GFR > 60 Random Glucose 141 H (60-115) mg/dL Calcium 8.7 (8.4-10.2) mg/dL Magnesium 1.7 (1.6-2.6) mg/dL Total Bilirubin 0.9 (0.0-1.0) mg/dL Direct Bilirubin 0.2 (0.0-0.5) mg/dL AST 70 H (5-31) U/L ALT 28 (0-31) U/L Alkaline Phosphatase 78 (39-117) U/L Total Protein 7.7 (6.5-8.0) g/dL Albumin 4.4 (3.5-5.0) g/dL Lipase 7 L (8-78) U/L Urine Opiates Screen Not Detected (Not Detect) Ur Buprenorphine Scrn Not Detected (Not Detect) ng/mL Ur Oxycodone Screen Not Detected (Not Detect) ng/mL Urine Methadone Screen Not Detected (Not Detect) ng/mL Urine Fentanyl Screen Not Detected (Not Detect) Ur Barbiturates Screen Not Detected (Not Detect) Ur Phencyclidine Scrn Not Detected (Not Detect) Ur Amphetamines Screen Not Detected (Not Detect) U Benzodiazepines Scrn POSITIVE H (Not Detect) Urine Cocaine Screen Not Detected (Not Detect) U Marijuana (THC) Screen POSITIVE H (Not Detect) Ethyl Alcohol 207 mg/dL Independent Interpretation I performed an independent interpretation of an: EKG (Sinus rhythm rate 96 QTC 492 no ischemic changes) Medications Administered Discontinued Medications Generic Name Dose Route Start Last Admin Trade Name Arnulfoq PRN Reason Stop Dose Admin Diazepam 5 mg 08/10/24 11:06 08/10/24 11:31 Diazepam 10 Mg/2 Ml Cartridge IVPUSH 08/10/24 11:07 5 mg STAT STA Administration Diazepam 5 mg 08/10/24 15:27 08/10/24 15:32 Diazepam 10 Mg/2 Ml Cartridge IVPUSH 08/10/24 15:28 5 mg STAT STA Administration Thiamine HCl 200 mg/ Sodium 102 mls @ 204 mls/hr 08/10/24 11:06 08/10/24 12:16 Chloride IV 08/10/24 11:35 Infused ONCE ONE Infusion Lactated Ringer's 1,000 mls @ 999 mls/hr 08/10/24 11:06 08/10/24 12:30 Lr IV 08/10/24 12:06 Infused .Q1H1M ONE Infusion Magnesium Sulfate 2 gm in 50 mls @ 25 mls/hr 08/10/24 11:06 08/10/24 14:19 Magnesium Sulfate/H2o IV 08/10/24 13:05 Infused ONCE ONE Infusion Lorazepam 2 mg 08/10/24 17:40 08/10/24 18:05 Lorazepam 1 Mg Tablet PO 08/10/24 17:41 2 mg ONCE ONE Administration Discharge Plan Discharge Clinical Impression: Alcohol use disorder, Prolonged QT syndrome Patient Disposition: Home, Self-Care Instructions: Alcohol Use Disorder (ED) Additional Instructions: Please return if you develop alcohol withdrawal symptoms as we discussed. Drink plenty of fluid. Follow up outpatient with any of the detox resources provided to you by our care team Prescriptions: No Action nicotine 14 mg/24 hr patch 24 hour 14 mg transdermal DAILY PRN (Reason: Smoking Cessation) oxycodone 5 mg tablet 5 mg PO Q8H PRN (Reason: pain, severe) Qty: 10 0RF Rx Instructions: Partial Fill upon patient request. buspirone 15 mg Tablet 15 mg PO BID clonidine HCl 0.1 mg tablet 0.1 mg PO BID mirtazapine 15 mg tablet 15 mg PO BEDTIME PRN (Reason: Sleep) Interventions: ED Discharge Assessment Last Done: 08/10/24 22:33 Discharge Date/Time: 08/10/24 22:33 Print Language: [place] Island[place]
[2024-08-10 11:28] LABS: MANUAL DIFF FLAG NO
[2024-08-10] MEDS: Thiamine HCL 200 MG in 0.9 % Sodium Chloride 100 ML 204 MG IV (11:29)
[2024-08-10] MEDS: Lactated Ringers 1,000 ML 999 ML IV (11:29)
[2024-08-10] MEDS: diazePAM 10 MG/2 ML CARTRIDGE 5 MG IVPUSH ×2 (11:31→15:32)
[2024-08-10 11:35] LABS: Basophils Percent Auto 0.3 % (0-2); Eosinophils Absolute Auto 0.1 X10*3/uL (0.0-0.4); Eosinophils Percent Auto 0.6 % (0-4); Hematocrit 41.9 % (37.0-47.0); Hemoglobin 14.7 g/dl (12.0-16.0); Imm Gran Abs Auto 0.07 X10*3/uL (0.00-0.03); Imm Gran Pct Auto 0.6 % (0.0-0.4); Lymphocytes Absolute Auto 2.9 X10*3/uL (1.2-4.9); Lymphocytes Percent Auto 23.6 % (20-40); Mean Corpuscular HGB Conc 35.1 g/dl (31.0-35.0); Mean Corpuscular Hemoglobin 30.9 pg (27.0-33.0); Monocytes Absolute Auto 0.5 X10*3/uL (0.1-1.2); Neutrophils Absolute Auto 8.6 x10*3/uL (2.0-8.3); Neutrophils Percent Auto 70.9 % (45-73); Platelet Count 135 X10*3/uL (160-400); Red Blood Count 4.76 X10*6/uL (4.20-5.50); Red Cell Distribution Width 13.2 % (11.0-16.0); White Blood Count 12.1 X10*3/uL (4.8-10.8)
[2024-08-10 11:56] LABS: Alanine Aminotransferase 28 U/L (0-31); Albumin Level 4.4 g/dL (3.5-5.0); Alkaline Phosphatase 78 U/L (39-117); Anion Gap 19 (12-20); Aspartate Amino Transferase 70 U/L (5-31); Bilirubin Direct 0.2 mg/dL (0.0-0.5); Bilirubin Total 0.9 mg/dL (0.0-1.0); Blood Urea Nitrogen 4 mg/dL (9-16); Calcium 8.7 mg/dL (8.4-10.2); Carbon Dioxide 18 mmol/L (22-29); Chloride 102 mmol/L (96-108); Creatinine Clr Calc Pharmacy 123.3; Estimated Glomerular Filt Rate > 60; Ethanol 207 mg/dL; Glucose Random 141 mg/dL (60-115); Lipase 7 U/L (8-78); Magnesium 1.7 mg/dL (1.6-2.6); Sodium 135 mmol/L (135-145); Total Protein 7.7 g/dL (6.5-8.0)
[2024-08-10] MEDS: Magnesium Sulfate/H2O 2 GM/50 ML PIGGYBACK IV (12:14)
--- OUTSIDE RECORDS SUMMARY | 2024-08-10 12:40 | XMS_ITS | Clinical Summary ---
Author Organization [facility] Address [address] [place] [address] Care Team Providers Care Client Delivery Manager Name Role Phone Unavailable Primary Care Provider Unavailabl e Encounters Date Type Department Care Team Description 06/15/2024 Population Health Risk Score [facility] (C3) Department [address] [place] [id number] Provider, Population Health Generic from Last 3 Months Social History Tobacco Use Types Packs/Day Years Used Date Smoking Tobacco: Never Assessed Comments Unknown Sex and Gender Information Value Date Recorded Sex Assigned at Not on file Legal Sex Female 11:40 AM EDT Gender Identity Not on file Sexual Orientation Not on file Plan of Treatment Health Maintenance Due Date Last Done Comments Depression Screening 1984 HIV Screening 1984 SDOH Screening 1984 Disability Screening 1984 Alcohol/Substance Use Screening 1996 Tobacco Screening 1996 Family Planning (PISQ) 07/14/1999 Hepatitis C Screening 2002 DTaP/Tdap/Td Vaccines (1 - Tdap) 07/14/2003 Hepatitis B Vaccines (1 of 3 - 19+ 3-dose series) 07/14/2003 Pap Smear 2005 Cervical Cancer Screening 2014 HPV/Cotest 2014 COVID-19 Vaccine ( - 2023-2 5 season) 2023 Influenza Vaccine (#1) 2023 Mammogram 2024 Zoster Vaccines (1 of 2) 2034 RSV Patients and Pa tients Aged 60 years or older (1 - 1-dose 75+ series) 07/14/2059 HIB Vaccines Aged Out No longer eligi ble based on patient's age to complete this topic HPV Vaccines Aged Out No longer eligi ble based on patient's age to complete this topic Hepatitis A Vaccines Aged Out No long er eligible based on patient's age to complete this topic IPV Vaccines Aged Out No longer eligi ble based on patient's age to complete this topic Meningococcal B Vaccine Aged Out No l onger eligible based on patient's age to complete this topic Meningococcal Vaccine Aged Out No momo srinivas eligible based on patient's age to complete this topic Pneumococcal Vaccine: Pediat rics (0 to 5 Years) and At-Risk Patients (6 to 49) Years) Aged Out No longer eligible b ased on patient's age to complete this topic RSV under 20 months Aged Out No longe r eligible based on patient's age to complete this topic Rotavirus Vaccines Aged Out No longer eligible based on patient's age to complete this topic
[2024-08-10 12:43] LABS: Amphetamine Screen Urine Not Detected (Not Detect); Barbiturates, Urine Not Detected (Not Detect); Benzodiazepines Screen Urine POSITIVE (Not Detect); Buprenorphine Scr Not Detected (Not Detect); Cannabinoid Screen Urine POSITIVE (Not Detect); Cocaine Screen Urine Not Detected (Not Detect); Fentanyl, urine Not Detected (Not Detect); Methadone Screen, Urine Not Detected (Not Detect); Opiate Screen Urine Not Detected (Not Detect); Oxycodone Screen Urine Not Detected (Not Detect); Phencyclidine Screen Urine Not Detected (Not Detect)
--- NOTE | 2024-08-10 15:26 | PC.NURSE ---
CIWA 9, Dr Hurtado notified. VSS.
[2024-08-10] MEDS: LORazepam 1 MG TABLET 2 MG PO (18:05)
--- NOTE | 2024-08-10 18:06 | PC.NURSE ---
CIWA increased, Dr Hurtado aware and additional meds ordered. Pt seen by recovery although sounds as though pt doesnt want to go as far as places offered. Awaits dispo, plan ongoing. VSS
--- NOTE | 2024-08-10 18:28 | MHC.CARE ---
Pt seen for a recovery assessment and initially requested ATS. Declined to be presented to [facility]. T/W informed Pt that most ATS that accept her insurance were located in [facility]-- Pt then declined ATS at this time. Pt provided recovery resources and information on how to self-present to ATS. ED provider is aware.
--- NOTE | 2024-08-10 20:39 | PC.NURSE ---
RN to bedside to check with patient per MD request. Md previously to bedside to discuss disposition s/p RN's update. Pt reports that she has previous experience with [facility] and was provided their phone number to contact. According to the patient she was informed to call them back in the morning when she knew for a fact that she could get a ride up there which she then followed up with concern surrounding the care and wellbeing of her dog if she was to present. MD made patient aware that she does not meet criteria for hospital admission at this time. RN to discuss plan and next steps with cloth stretcher and CC
== END 2024-08-10 22:33 | disposition home or self-care (01) ==
PROVIDERS: Emergency Medicine; Emergency Provider Emergency Medicine
DX: F10.90 Alcohol use, unspecified, uncomplicated (principal); Y90.7 Blood alcohol level of 200-239 mg/100 ml; R94.31 Abnormal electrocardiogram [ECG] [EKG]; R29.700 NIHSS score 0; F17.210 Nicotine dependence, cigarettes, uncomplicated; Z79.899 Other long term (current) drug therapy
CPT/HCPCS: 36415; 80048; 80076; 80307; 83690; 83735; 85025; 93005; 96361; 96365; 96366; 96375; 96376; 99285; J3360; J3411; J3475; J7120; S9485

== ENCOUNTER → 2024-08-10 11:02 | Outpatient (BNV) | payer OTHER, SELFPAY | PROVIDERS: Emergency Provider Emergency Medicine; Visit Provider Internal Medicine Cardiovascular Disease | DX: R94.31 Abnormal electrocardiogram [ECG] [EKG] (principal); Z13.6 Encounter for screening for cardiovascular disorders | CPT/HCPCS: 93010 ==

== ENCOUNTER 2024-08-17 17:19 | Emergency (ER) | payer OTHER, SELFPAY ==
[2024-08-17 17:26] VITALS: BP 155/103; PULSE 97; RESP 18; TEMP 36.4; O2SAT 97; BMI 21.9
--- NOTE | 2024-08-17 17:27 | ED_ITS ---
HPI - General Adult General Chief complaint: ETOH/Substance Use Stated complaint: alcohol withdrawal, weakness Time Seen by Provider: 08/17/24 21:26 Source: patient Mode of arrival: ambulatory Limitations: no limitations History of Present Illness ED Provider: Dr. Domonique Dawkins HPI narrative: Patient comes to the emergency room seeking detox. Patient states she usually drinks 15 nips per day daily. Patient had a drink 10 minutes prior to arriving to the emergency room. Patient denies SI or HI. Patient states that she will like to get help to look for detox. Patient has tried doing it on her own but has not succeeded Related Data Home Medications ?Medication ?Instructions ?Recorded ?Confirmed buspirone 15 mg tablet 15 mg PO BID 08/21/23 08/18/24 clonidine HCl 0.1 mg tablet 0.1 mg PO BID Anxiety 01/31/24 08/18/24 nicotine 14 mg/24 hr daily 14 mg transdermal DAILY PRN 04/20/24 08/18/24 transdermal patch Smoking Cessation trazodone 50 mg tablet 25 - 50 mg PO BEDTIME PRN Insomnia 08/18/24 08/18/24 Allergies Allergy/AdvReac Type Severity Reaction Status Date / Time ondansetron [From Zofran] AdvReac Unknown Verified 08/17/24 17:28 Review of Systems 2 Review of Systems: Constitutional : No Weight loss, No Fever, No Chills, No Night Sweats, No Fatigue, No Malaise ENT/Mouth : No Hearing loss, No Ear Pain, No Nasal Congestion, No Sinus Pain, No Hoarseness, No sore throat, No Rhinorrhea, No Swallowing Difficulty Eyes: No Eye Pain, No Swelling, No Redness, No Foreign Body, No Discharge, No Vision Changes Cardiovascular : No Chest Pain, No SOB, No Dyspnea on Exertion, No Orthopnea, No Edema, No Palpitations Respiratory : No Cough, No Sputum, No Wheezing, No Smoke Exposure, No Dyspnea Gastrointestinal : No Nausea, No Vomiting, No Diarrhea, No Constipation, No abdominal Pain, No Hematochezia, No Melena Genitourinary : no irregular bleeding, No Dysuria, No Urinary Frequency, No Hematuria, No Urinary Incontinence, No Urgency, No Flank Pain, No Urinary Flow Changes, No Hesitancy Musculoskeletal : No joint pain, No Myalgias, No Joint Swelling Skin : No Skin Lesions, No rash Neuro : No Weakness, No Numbness, No Paresthesias, No Loss of Consciousness, No Dizziness, No Headache Psych : No Anxiety/Panic, No Depression, No SI/HI/AH/VH, admits to alcohol abuse and dependence Heme/Lymph: No Bruising, No Bleeding,No Lymphadenopathy Endocrine : No Polyuria, No Polydipsia, No Temperature Intolerance [facility] Past Medical History Medical History Prolonged QT syndrome Alcoholism Anxiety Social History Social History Household Members: None Household Members Other:: self and daughter comes every other weekend Housing: House Do you presently have visiting nurse or other home services: No Alcohol intake: current Alcohol intake frequency: 3 or more drinks per day Alcohol type: hard liquor Patient Tobacco Use Status: Current everyday Tobacco user Tobacco use type: Cigarette Cigarette Packs Per Day: 0.5 Cigarettes Per Day: 10.0 Smoked in Last 30 Days: Yes e-Cigarette/Vaping Use: Never Used Second Hand Smoke Exposure: Yes Use of substances other than those prescribed or required for medical reasons: Yes Substance Use Type: Marijuana Advance Directives: No Advance Directives Information Provided: Yes Patient : No service: No Physical Exam ED Vital Signs: Vital Signs - 24 hr 08/17/24 17:26 08/17/24 19:47 08/17/24 22:00 Temperature 97.5 F 98.3 F 98.3 F Pulse Rate 97 88 77 Respiratory Rate 18 16 16 Blood Pressure 155/103 H 171/102 H 144/99 H Pulse Oximetry 97 96 96 Oxygen Delivery Method Room Air Room Air Room Air 08/18/24 03:18 08/18/24 08:47 08/18/24 09:25 Temperature 97.5 F 97.9 F Pulse Rate 89 82 Respiratory Rate 16 20 Blood Pressure 137/83 160/88 H 160/88 H Pulse Oximetry 98 95 Oxygen Delivery Method Room Air Room Air BMI result Body Mass Index 21.9 Const Other: Appearance: Alert. Oriented X3. No acute distress. Eyes: Pupils equal, round and reactive to light. ENT: Pharynx normal. Neck: Normal inspection. Neck supple. No lymph nodes noted. No crepitus CVS: Normal heart rate and rhythm. Pulses normal. Normal S1 and S2 Respiratory: No respiratory distress. Breath sounds normal. No Wheezing. No rales Abdomen: Soft and nontender. No rigidity. No distention. Skin: Skin warm and dry. Normal skin color. Normal skin turgor. Extremities: No lower extremity edema. No Lacerations. No Rash Neuro: Oriented X 3. No motor deficit. No sensory deficit. Moving all extremities. No slurred speech. CN 2 through 12 grossly intact Psych: calm, cooperative, normal affect Course Course Course Narrative: This is a Rapid Medical Examination (RME) performed by Nadege Lopez PA-C in triage. Full HPI, ROS, assessment and treatment plan per primary provider in the Main ED. Hx: 39 yo F hx etoh abuse, pancreatitis, pronlonged QT here seeking detox. recently seen here, discharged with plan to attend outpatient detox. did not follow up. reports consuming 15 nips/daily. last drink approx 10 mins ago. PE/vitals: hypertensive. restless. tremulous Plan: labs, ekg Medications Administered Generic Name Dose Route Start Last Admin Trade Name Freq PRN Reason Stop Dose Admin Buspirone HCl 15 mg 08/18/24 09:00 08/18/24 09:25 Buspirone Hcl 5 Mg Tablet PO 15 mg BID VICKY Administration Clonidine HCl 0.1 mg 08/18/24 09:00 08/18/24 09:25 Clonidine Hcl 0.1 Mg Tablet PO 0.1 mg BID VICKY Administration Protocol Discontinued Medications Generic Name Dose Route Start Last Admin Trade Name Freq PRN Reason Stop Dose Admin Diazepam 8 mg 08/18/24 08:47 08/18/24 09:25 Diazepam 2 Mg Tablet PO 08/18/24 08:48 8 mg ONCE ONE Administration Ibuprofen 600 mg 08/18/24 03:26 08/18/24 03:29 Ibuprofen 600 Mg Tablet PO 08/18/24 03:27 600 mg ONCE ONE Administration Lorazepam 2 mg 08/17/24 21:35 08/17/24 22:09 Lorazepam 1 Mg Tablet PO 08/17/24 21:36 2 mg ONCE ONE Administration Lorazepam 1 mg 08/18/24 03:14 08/18/24 03:22 Lorazepam 1 Mg Tablet PO 08/18/24 03:15 1 mg ONCE ONE Administration Potassium Chloride 60 meq 08/17/24 21:33 08/17/24 22:08 Potassium Chloride Packet 20 Meq Packet PO 08/17/24 21:34 60 meq ONCE ONE Administration Medical Decision Making Medical Decision Making [facility] Narrative: My interpretation of EKG: Normal sinus rhythm, heart rate 91, no ST segment depression or elevation, no T-wave inversion, QTC 467. Overall quality of EKGs poor My interpretation of labs, no significant abnormality in patient's hematology, chemistry shows a potassium of 3.0 which is being repleted p.o.. Magnesium 1.8. Lipase normal, LFTs show that AST and ALT are slightly bumped. Urinalysis negative for UTI Care team consult/cost recovery technician consult pending Patient received a dose of p.o. potassium and Ativan Care /cost recovery technician consult pending Physician observation started at 23:20 08:42 Date: 08/18/24 Provider: Stevenson Gupta, DO Patient in physician observation for psychiatric evaluation.? No acute events reported overnight. No current complaints. VS stable.? Patient is pending CARE team evaluation. Will continue to monitor. CIWA 9, will order meds 956 AM:Patient is a Detox bed search 1000: [facility] in [place] will be going there tomorrow 10AM 08/18/24 1246 Stevenson Gupta, physician observation stopped, patient declined the above plan, and we will be discharged with outpatient resources Differential Diagnosis Differential Diagnoses: The differential diagnosis associated with the presentation includes (Alcohol abuse, alcohol dependence, THC abuse, polysubstance abuse) Admission/Observation Consideration of admission/observation: Escalation of care including admission/observation considered (Patient is waiting to be seen by the care team/cost recovery technician for assistance with detox) Lab Data [facility] Lab Attestation statement: I reviewed the patient's lab results. 08/17/24 17:56 08/17/24 17:56 Labs: Lab Results 08/17/24 08/17/24 Range/Units 17:56 19:50 WBC 9.3 (4.8-10.8) X10*3/uL RBC 4.57 (4.20-5.50) X10*6/uL Hgb 14.2 (12.0-16.0) g/dl Hct 39.7 (37.0-47.0) % MCV 86.9 (80.0-98.0) fL MCH 31.1 (27.0-33.0) pg MCHC 35.8 H (31.0-35.0) g/dl RDW 13.5 (11.0-16.0) % Plt Count 152 L (160-400) X10*3/uL MPV 8.4 L (9.4-12.3) fL Immature Gran % (Auto) 0.9 H (0.0-0.4) % Neut % (Auto) 54.1 (45-73) % Lymph % (Auto) 35.4 (20-40) % Alpine % (Auto) 7.6 (2-11) % Eos % (Auto) 1.5 (0-4) % Baso % (Auto) 0.5 (0-2) % Lymph # (Auto) 3.3 (1.2-4.9) X10*3/uL Alpine # (Auto) 0.7 (0.1-1.2) X10*3/uL Eos # (Auto) 0.1 (0.0-0.4) X10*3/uL Baso # (Auto) 0.1 (0.0-0.2) X10*3/uL Abs Immat Gran (auto) 0.08 H (0.00-0.03) X10*3/uL Absolute Neuts (auto) 5.0 (2.0-8.3) x10*3/uL Absolute Nucleated RBC 0.000 (0.0-0.012) X10*3/uL Nucleated RBC % (auto) 0.0 (0.0-0.2) /100WBC Sodium 143 (135-145) mmol/L Potassium 3.0 L D (3.3-5.1) mmol/L Chloride 107 (96-108) mmol/L Carbon Dioxide 24 (22-29) mmol/L Anion Gap 15 (12-20) BUN 4 L (9-16) mg/dL Creatinine 0.66 (0.5-1.4) mg/dL Estim Creat Clear Calc 110.2 Estimated GFR > 60 Random Glucose 116 H (60-115) mg/dL Calcium 8.9 (8.4-10.2) mg/dL Magnesium 1.8 (1.6-2.6) mg/dL Total Bilirubin 0.5 (0.0-1.0) mg/dL AST 63 H (5-31) U/L ALT 67 H (0-31) U/L Alkaline Phosphatase 78 (39-117) U/L Total Protein 7.0 (6.5-8.0) g/dL Albumin 4.4 (3.5-5.0) g/dL Lipase 7 L (8-78) U/L Urine Color Yellow Urine Appearance Clear Urine pH 6.5 (5.0-9.0) Ur Specific Leonore <= 1.005 (1.005-1.025) Urine Protein Negative (Neg-Trace) mg/dL Urine Glucose (UA) Negative (Negative) mg/dL Urine Ketones Negative (Negative) mg/dL Urine Blood Moderate (2+) H (Negative) Urine Nitrite Negative (Negative) Ur Leukocyte Esterase Negative (Negative) Urine RBC 0-2 (0-2) /HPF Urine WBC 0-5 (0-5) /HPF Ur Squamous Epith Cells 0-2 (0-2) /HPF Urine Bacteria None Seen (None Seen) Hyaline Casts 0-2 (0-2) /LPF Urine Test NEGATIVE (NEGATIVE) Urine Opiates Screen Not Detected (Not Detect) Ur Buprenorphine Scrn Not Detected (Not Detect) ng/mL Ur Oxycodone Screen Not Detected (Not Detect) ng/mL Urine Methadone Screen Not Detected (Not Detect) ng/mL Urine Fentanyl Screen Not Detected (Not Detect) Ur Barbiturates Screen Not Detected (Not Detect) Ur Phencyclidine Scrn Not Detected (Not Detect) Ur Amphetamines Screen Not Detected (Not Detect) U Benzodiazepines Scrn Not Detected (Not Detect) Urine Cocaine Screen Not Detected (Not Detect) U Marijuana (THC) Screen POSITIVE H (Not Detect) Ethyl Alcohol 227 mg/dL Critical Care Time Critical Care Time Critical Care Time: Yes Total Critical Care Time: 35 Attestation: I have personally provided critical care time. Time includes review of lab data, radiology results, discussion with consultants, and monitoring for potential decompensation. Intervention performed as documented. Discharge Plan Discharge Clinical Impression: Alcohol use disorder, Acute hypokalemia Patient Disposition: Home, Self-Care Transfer Details: [facility] in [place] Instructions: Abuse of Alcohol (DC) Additional Instructions: You were given the option of going into [facility] in [place] which he declined, provide her with outpatient resources, please do your best to seek sobriety. Prescriptions: No Action nicotine 14 mg/24 hr patch 24 hour 14 mg transdermal DAILY PRN (Reason: Smoking Cessation) buspirone 15 mg Tablet 15 mg PO BID clonidine HCl 0.1 mg tablet 0.1 mg PO BID trazodone 50 mg tablet 25 - 50 mg PO BEDTIME PRN (Reason: Insomnia) Print Language: Stateless
--- NOTE | 2024-08-17 17:28 | ECG_ITS ---
Test Reason : WITHDRAWAL Blood Pressure : */* mmHG Vent. Rate : 91 BPM Atrial Rate : 91 BPM P-R Int : 140 ms QRS Dur : 104 ms QT Int : 380 ms P-R-T Axes : * -49 -69 degrees QTcB Int : 467 ms Artifact in tracing Normal sinus rhythm cannot assess inferior leads due to artifact Otherwise normal ECG When compared with ECG of 10-Aug-2024 11:09, No significant changes seen Referred By: Saskia Lopez Electronically Signed By: FORREST MARIO
[2024-08-17 18:03] LABS: MANUAL DIFF FLAG NO
[2024-08-17 18:15] LABS: Basophils Absolute Auto 0.1 X10*3/uL (0.0-0.2); Basophils Percent Auto 0.5 % (0-2); Eosinophils Absolute Auto 0.1 X10*3/uL (0.0-0.4); Eosinophils Percent Auto 1.5 % (0-4); Hematocrit 39.7 % (37.0-47.0); Hemoglobin 14.2 g/dl (12.0-16.0); Imm Gran Abs Auto 0.08 X10*3/uL (0.00-0.03); Imm Gran Pct Auto 0.9 % (0.0-0.4); Lymphocytes Absolute Auto 3.3 X10*3/uL (1.2-4.9); Lymphocytes Percent Auto 35.4 % (20-40); Mean Corpuscular HGB Conc 35.8 g/dl (31.0-35.0); Mean Corpuscular Hemoglobin 31.1 pg (27.0-33.0); Mean Corpuscular Volume 86.9 fL (80.0-98.0); Mean Platelet Volume 8.4 fL (9.4-12.3); Monocytes Absolute Auto 0.7 X10*3/uL (0.1-1.2); Monocytes Percent Auto 7.6 % (2-11); Neutrophils Percent Auto 54.1 % (45-73); Platelet Count 152 X10*3/uL (160-400); Red Blood Count 4.57 X10*6/uL (4.20-5.50); Red Cell Distribution Width 13.5 % (11.0-16.0); White Blood Count 9.3 X10*3/uL (4.8-10.8)
[2024-08-17 18:16] LABS: Ethanol 227 mg/dL
[2024-08-17 18:21] LABS: Alanine Aminotransferase 67 U/L (0-31); Albumin Level 4.4 g/dL (3.5-5.0); Alkaline Phosphatase 78 U/L (39-117); Anion Gap 15 (12-20); Aspartate Amino Transferase 63 U/L (5-31); Bilirubin Total 0.5 mg/dL (0.0-1.0); Blood Urea Nitrogen 4 mg/dL (9-16); Calcium 8.9 mg/dL (8.4-10.2); Carbon Dioxide 24 mmol/L (22-29); Chloride 107 mmol/L (96-108); Creatinine Clr Calc Pharmacy 110.2; Estimated Glomerular Filt Rate > 60; Glucose Random 116 mg/dL (60-115); Lipase 7 U/L (8-78); Magnesium 1.8 mg/dL (1.6-2.6); Sodium 143 mmol/L (135-145)
[2024-08-17 19:47] VITALS: BP 171/102; PULSE 88; RESP 16; TEMP 36.8; O2SAT 96
--- NOTE | 2024-08-17 19:55 | PC.NURSE ---
assumed care of patient. A&O x4, here to seek detox from alcohol. Pt drinking 15 nips daily over the last month. Pt wanting to cut down. No previous seizures when in w/d, no tremors present, no headache, mild anxiety, CIWA=1. Hx of pancreatitis
[2024-08-17 20:00] LABS: Appearance Urine Clear; Color Urine Yellow; Glucose Urine UA Negative (Negative); Leukocyte Esterase Urine Negative (Negative); Nitrite Urine Negative (Negative); PH 6.5 (5.0-9.0); Specific Gravity - Urine <= 1.005 (1.005-1.025); UMIC TRIGGER UACC YES; Urine Blood Moderate (2+) (Negative); Urine Ketones Negative (Negative); Urine Protein Negative (Neg-Trace)
[2024-08-17 20:09] LABS: Amphetamine Screen Urine Not Detected (Not Detect); Barbiturates, Urine Not Detected (Not Detect); Benzodiazepines Screen Urine Not Detected (Not Detect); Buprenorphine Scr Not Detected (Not Detect); Cannabinoid Screen Urine POSITIVE (Not Detect); Cocaine Screen Urine Not Detected (Not Detect); Fentanyl, urine Not Detected (Not Detect); Methadone Screen, Urine Not Detected (Not Detect); Opiate Screen Urine Not Detected (Not Detect); Oxycodone Screen Urine Not Detected (Not Detect); Phencyclidine Screen Urine Not Detected (Not Detect)
[2024-08-17 20:17] LABS: Bacteria Urine None Seen (None Seen); Hyaline Casts Urine 0-2 /LPF (0-2); RBC Urine 0-2 /HPF (0-2); Squamous Epithelial Cell Urine 0-2 /HPF (0-2); WBC Urine 0-5 /HPF (0-5)
[2024-08-17 22:00] VITALS: BP 144/99; PULSE 77; RESP 16; TEMP 36.8; O2SAT 96
[2024-08-17 22:06] LABS: UPreg QC Valid YES; Urine Pregnancy NEGATIVE (NEGATIVE)
[2024-08-17] MEDS: Potassium Chloride Packet 20 MEQ PACKET 60 MEQ PO (22:08)
[2024-08-17] MEDS: LORazepam 1 MG TABLET 2 MG PO (22:09)
--- NOTE | 2024-08-17 22:10 | PC.NURSE ---
pt medicated per mar at this time, tolerated well with water. care team at bedside with pt.
--- NOTE | 2024-08-17 22:13 | MHC.CARE ---
T/w attempted to talk to pt. and give resources and she reports that she is still intoxicated and would like me to come back. Pt. also reports that she has already called 3 facilities today on her own.
[2024-08-18 03:18] VITALS: BP 137/83; PULSE 89; RESP 16; TEMP 36.4; O2SAT 98
[2024-08-18] MEDS: LORazepam 1 MG TABLET PO (03:22)
[2024-08-18] MEDS: Ibuprofen 600 MG TABLET PO (03:29)
--- NOTE | 2024-08-18 07:33 | PC.NURSE ---
Care of Pt assumed at change of shift. Pt is currently resting quietly in bed. NAD noted at this time. Breakfast tray provided at bedside. [facility] disposition pending--non-crisis Pt at this time.
--- NOTE | 2024-08-18 08:28 | PC.NURSE ---
Pt approaches RN station c/o withdrawal symptoms. CIWA = [address] at this time. ED Provider Dr. Gupta contacted via [employer]. Care Team at bedside now.
[2024-08-18 08:47] VITALS: BP 160/88; PULSE 82; RESP 20; TEMP 36.6; O2SAT 95
--- NOTE | 2024-08-18 08:56 | MHC.CARE ---
Pt will be a detox bedsearch
[2024-08-18 09:25] VITALS: BP 160/88
[2024-08-18] MEDS: cloNIDine HCL 0.1 MG TABLET PO (09:25)
[2024-08-18] MEDS: diazePAM 2 MG TABLET 8 MG PO (09:25)
[2024-08-18] MEDS: busPIRone HCl 5 MG TABLET 15 MG PO (09:25)
--- NOTE | 2024-08-18 10:32 | MHC.CARE ---
Pt has been accepted to [facility] in [facility] single case agreement was done to accommodate pt and they want her for 10:00AM on Saturday 08/19. Intake will be conducted this afternoon via telephone. Provider and POD nurse notified, pt will be allowed to remain in the ED overnight so that pt could be transported to the facility in the morning. Pt was advised of the placement and plan and declined the admission as she had a bad experience there. Referral to [facility] is still pending.
--- NOTE | 2024-08-18 11:28 | MHC.CARE ---
CARE Team speaks with [facility] to make them aware that pt has declined the admission due to having a bad experience.? Pt was there in April 2023 shortly after the facility opened in February 2023/March 2023. [facility] has offered to speak with pt to discuss the changes made (including some staffing since the facility opened).? [facility] intake staff offered to speak with her on the phone to alleviate any concerns she may have. CARE Team speaks with pt, who reports she still has no interest in the program and is seeking an inpatient program for detox.
--- NOTE | 2024-08-18 12:56 | MHC.CARE ---
Pt had a bed at [facility], [facility] called to do an intake.? Pt refused the intake and the bed at [facility].? No reasons why she declined the admission.? Pt was well aware of the referral placed at [facility] and possibility of an admission. CARE Team speaks with ED provider.? Pt will be discharged home with resources to follow up on.
[2024-08-18 13:07] VITALS: BP 160/88; PULSE 82; RESP 18; TEMP 36.6; O2SAT 95
== END 2024-08-18 13:18 | disposition home or self-care (01) ==
PROVIDERS: Physician Assistant Medical; Emergency Provider Emergency Medicine; PCP Nurse Practitioner
DX: F10.90 Alcohol use, unspecified, uncomplicated (principal); E87.6 Hypokalemia
CPT/HCPCS: 36415; 80053; 80307; 81001; 81025; 83690; 83735; 85025; 93005; 99285; S9485

== ENCOUNTER → 2024-08-17 17:28 | Outpatient (BNV) | payer OTHER, SELFPAY | PROVIDERS: Emergency Provider Emergency Medicine; PCP Nurse Practitioner; Visit Provider Internal Medicine | DX: F19.950 Other psychoactive substance use, unspecified with psychoactive substance-induced psychotic disorder with delusions (principal) | CPT/HCPCS: 93010 ==